=== PATIENT | female | born 1980 | race Caucasian/White ===

== ENCOUNTER 2023-11-02 18:55 | Emergency (ER) | payer SELFPAY ==
[2023-11-02 19:12] VITALS: BP 98/61; PULSE 79; RESP 17; TEMP 36.6; O2SAT 100; BMI 23.0
[2023-11-02 20:16] LABS: Basophils # 0.1 10^3/uL (0.0-0.1); Basophils % 0.9 %; Eosinophils # 0.1 10^3/uL (0.0-0.8); Hematocrit 40.9 % (36-47); Lymphocytes # 1.5 10^3/uL (0.8-4.8); Lymphocytes % 18.6 %; Mean Corpuscular Hemoglobin 29.6 pg (27-33); Mean Corpuscular Volume 92.5 fl (85-98); Mean Platelet Volume 11.1 fL (7.4-10.4); Monocytes # 0.6 10^3/uL (0.2-0.9); Monocytes % 8.1 %; Neutrophils # 5.59 10^3/uL (1.8-7.7); Neutrophils % 71.1 %; Nucleated Red Blood Cells % 0 %; Platelet Count 234 10^3/cmm (157-399); Red Blood Count 4.42 10^6/uL (3.85-5.65); Red Cell Distribution Width 14.6 % (12.1-15.1); White Blood Count 7.86 10^3/uL (3.29-11.43)
[2023-11-02 20:37] LABS: Alanine Aminotransferase 94 U/L (0-33); Albumin Level 4.1 g/dL (3.5-5.2); Alkaline Phosphatase 64 U/L (35-105); Anion Gap 14.1 (5-19); Aspartate Amino Transferase 62 U/L (0-32); Blood Urea Nitrogen 20 mg/dL (6-20); Calcium 8.7 mg/dL (8.5-10.5); Carbon Dioxide 25 mmol/L (22-29); Chloride 104 mmol/L (98-107); Creatinine Clr Calc Pharmacy 126.0267; Globulin 3.4 g/dL (1.3-4.6); Glomerular Filtration Rate 134.7 mL/min (90-130); Glucose 89 mg/dL (65-115); Osmolality Calculated 290 mOsm/kg (285-295); Potassium 4.1 mmol/L (3.5-5.1); Sodium 139 mmol/L (136-145); Total Bilirubin 0.3 mg/dL (0.15-1.2); Total Protein 7.5 g/dL (6.6-8.7)
== END 2023-11-02 20:27 | disposition left against medical advice (07) ==
PROVIDERS: Emergency Medicine; Emergency Provider Family Medicine; Family Provider Family Medicine; PCP Family Medicine
DX: Z53.21 Procedure and treatment not carried out due to patient leaving prior to being seen by health care provider (principal)
CPT/HCPCS: 36415; 80053; 85025

== ENCOUNTER 2023-11-12 15:18 | Emergency (ER) | payer SELFPAY ==
[2023-11-12 15:30] VITALS: BP 104/56; PULSE 105; RESP 16; TEMP 36.7; O2SAT 97; BMI 23.0
--- NOTE | 2023-11-12 16:14 | XR_ITS ---
WS: [id number] Examination: XR lumbar spine 2-3V* [id number] Reason for Exam: back pain Date: 11/12/2023 Comparison: 11/11/2006 Findings: The bone density and the pedicles are intact. There is sacralization of L5 on the right. There is no anterior wedging or compression. There is subtle anterolisthesis at L3-4. There is mild L3-4 disc space narrowing XR/XR lumbar spine 2-3V* [id number] Impression: There is no wedging or compression There is minimal anterolisthesis at L3-4 with the space narrowing.
--- NOTE | 2023-11-12 16:20 | W.ED.BACK ---
HPI - Back Pain/Injury General: Chief Complaint: Back Pain/Injury Stated Complaint: right side lower back pain Time Seen by Provider: 11/12/23 16:11 Source: patient Mode of arrival: ambulatory Limitations: no limitations History of Present Illness: 43-year-old female states she has had left lower back pain Associated symptoms: Deny abdominal pain, chills, dysuria, fever(s), nausea or vomiting Related Data Previous Rx's Medication Instructions Recorded amoxicillin 500 mg tablet 500 mg PO BID dental abscess #30 07/04/22 tabs ibuprofen 600 mg tablet 600 mg PO Q8H PRN pain #20 tabs 07/04/22 methocarbamol 750 mg tablet 750 mg PO Q6H PRN spasms #20 tabs 11/12/23 naproxen 500 mg tablet (Naprosyn) 500 mg PO BID PRN pain #20 tabs 11/12/23 Allergies Allergy/AdvReac Type Severity Reaction Status Date / Time No Known Allergies Allergy Verified 11/02/23 19:14 Review of Systems Const: Denies: fever(s), chills, body aches or change in appetite ENMT: Denies: throat pain or dental pain Card: Denies: chest pain Resp: Denies: dyspnea GI: Denies: abdominal pain, nausea, vomiting or diarrhea : Denies: dysuria Musc: Reports: back pain; Denies: neck pain Skin/Breast: Denies: rash Neuro: Denies: headache(s) PFS ED PFSH: Medical History Dental caries associated with enamel hypomineralization Dental abscess Physical Exam Const: COMMON NORMALS: no acute distress, patient oriented x3 and healthy appearing HENMT: COMMON NORMALS: normocephalic and atraumatic HEAD & SCALP: normocephalic and atraumatic Neck/C-Spine: COMMON NORMALS: full ROM and supple Chest: COMMONS NORMALS: normal inspection of the chest Resp: COMMON NORMALS: normal respiratory effort Cardio: COMMON NORMALS: regular rate RATE: regular rate Back/Pelvis: OTHER: Tenderness over left lower back no midline tenderness no saddle anesthesia Extremity: COMMON NORMALS: normal to inspection and full ROM Neuro: COMMON NORMALS: patient oriented x3, moves all extremities and no focal motor deficits Psych: COMMON NORMALS: mental status grossly normal, Normal thought process present and cooperative THOUGHT PROCESS: Normal thought process present Skin: COMMON NORMALS: no rashes or lesions noted and no wounds GENERAL SKIN EXAM: no rashes or lesions noted Course Vital Signs: Vital signs: Vital Signs Temperature 98.1 F 11/12/23 15:30 Pulse Rate 105 H 11/12/23 15:30 Respiratory Rate 16 11/12/23 15:30 Blood Pressure 104/56 11/12/23 15:30 Pulse Oximetry 97 11/12/23 15:30 Oxygen Delivery Me thod Room Air 11/12/23 15:30 MDM - Back Pain/Injury Medical Decision Making Patient presents with a lumbar strain likely causing her back pain she has no signs of epidural abscess or cord compression she feels improved here we will place her on Naprosyn Robaxin she is follow-up with PCP and return if worsening. Medical Records I reviewed the patient's medical records. Labs I reviewed the patient's lab results. Radiology Impressions Lumbar Spine X-Ray 11/12/23 16:14 Impression: There is no wedging or compression There is minimal anterolisthesis at L3-4 with the space narrowing. Laboratory Results Urine Color Moffat (Yellow) A 11/12/23 16:15 Urine Appearance Clear (CLEAR) 11/12/23 16:15 Urine pH 6.0 (5-7) 11/12/23 16:15 Ur Specific [place] 1.030 (1.005-1.030) 11/12/23 16:15 Urine Protein Trace (Negative) A 11/12/23 16:15 Urine Glucose (UA) Negative (Normal) 11/12/23 16:15 Urine Ketones 1+ (Negative) H 11/12/23 16:15 Urine Blood Negative (Negative) 11/12/23 16:15 Urine Nitrate Negative (Negative) 11/12/23 16:15 Urine Bilirubin Negative (Negative) 11/12/23 16:15 Urine Urobilinogen 1.0 mg/dL (Negative) 11/12/23 16:15 Ur Leukocyte Esterase Trace (Negative) A 11/12/23 16:15 Urine RBC 0-4 /hpf (0-2) H 11/12/23 16:15 Urine WBC 0-4 /hpf (0-5) H 11/12/23 16:15 Ur Squamous Epith Cells 5-10 /hpf (0-5) H 11/12/23 16:15 Calcium Oxalate Crystal 5-10 /hpf H 11/12/23 16:15 Amorphous Sediment Not Reportable 11/12/23 16:15 Urine Bacteria Trace /hpf (NONE) 11/12/23 16:15 Urine Mucus 4+ /hpf 11/12/23 16:15 Ur Oval Fat Bodies 1+ /hpf 11/12/23 16:15 All radiology interpretation(s) finalized by discharge Discharge Plan Discharge Patient Disposition: Home Clinical Impression: Strain of lumbar region Qualifiers: Encounter type: initial encounter Qualified Code(s): S39.012A - Strain of muscle, fascia and tendon of lower back, initial encounter Condition: Stable Prescriptions: New methocarbamol 750 mg tablet 750 mg PO Q6H PRN (Reason: spasms) Qty: 20 0RF Naprosyn 500 mg tablet 500 mg PO BID PRN (Reason: pain) Qty: 20 0RF No Action amoxicillin 500 mg tablet 500 mg PO BID Qty: 30 0RF ibuprofen 600 mg tablet 600 mg PO Q8H PRN (Reason: pain) Qty: 20 0RF Discharge Orders: Discharge ED (Routine); Ordered 11/12/23 Ordered By: Oly Mejia Referrals: Nolan Soto MD [Primary Care Provider] - 4-7 days Discharge Diet: Advance as tolerated Discharge Activity: Resume usual activity Patient Instructions: Back Pain (ED) Stand Alone Forms: Work/School Release Coding Level of Care 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
[2023-11-12 16:35] LABS: Charge for UA Resulting for Rev
[2023-11-12 16:38] LABS: Bilirubin Urine Negative (Negative); Blood Urine Negative (Negative); Glucose Urine UA Negative (Normal); Ketones Urine 1+ (Negative); Leukocyte Esterase Urine Trace (Negative); Nitrate Urine Negative (Negative); Protein Urine Trace (Negative); Urine Appearance Clear (CLEAR)
[2023-11-12] MEDS: methocarbamol 750 mg Tablet 1500 MG PO (16:51)
[2023-11-12] MEDS: ketorolac 60 mg/2 mL INJ IM (16:53)
[2023-11-12] MEDS: dexamethasone 10 mg/mL INJ IM (16:53)
[2023-11-12 17:17] LABS: UA Manual Slide Review YES; UA Slide Review UA Slide Review Perf; Urine Color Orange (Yellow)
[2023-11-12 17:19] LABS: Add Urine Culture? No; Bacteria Urine TRACE /hpf; Mucus Urine 4+ /hpf; Oval Fat Bodies Urine 1+ /hpf; RBC Urine 0-4 /hpf (0-2); WBC Urine 0-4 /hpf (0-5)
[2023-11-12 18:18] VITALS: BP 110/63; PULSE 82; O2SAT 97
== END 2023-11-12 18:19 | disposition home or self-care (01) ==
PROVIDERS: Emergency Provider Emergency Medicine; Family Provider Family Medicine; PCP Family Medicine
DX: S39.012A Strain of muscle, fascia and tendon of lower back, initial encounter (principal); X58.XXXA Exposure to other specified factors, initial encounter
CPT/HCPCS: 72100; 81003; 81015; 96372; 99284; J1100; J1885

== ENCOUNTER 2023-12-16 03:53 | Emergency (ER) | payer SELFPAY ==
[2023-12-16 03:59] VITALS: BP 119/83; PULSE 83; RESP 18; TEMP 36.7; O2SAT 99; BMI 23.0
[2023-12-16 04:06] VITALS: BP 119/83; PULSE 73; O2SAT 100
--- NOTE | 2023-12-16 04:22 | W.ED.BACK ---
HPI - Back Pain/Injury General: Chief Complaint: Back Pain/Injury Stated Complaint: Lower back pain Time Seen by Provider: 12/16/23 04:18 History of Present Illness: Patient presents to the ER for evaluations of low back pain and back spasms. She states she was seen here few weeks ago for the same thing and was given a shot and a muscle relaxer and it seemed to help but the pain will wait. Patient was instructed to follow-up with her family practice physician for further evaluation and treatment but has not seen them. Patient has had no new acute trauma. Patient does rate the pain a 6 out of 10. Related Data Previous Rx's Medication Instructions Recorded amoxicillin 500 mg tablet 500 mg PO BID dental abscess #30 07/04/22 tabs ibuprofen 600 mg tablet 600 mg PO Q8H PRN pain #20 tabs 07/04/22 meloxicam 7.5 mg tablet 7.5 mg PO .Twice daily #14 tabs 12/16/23 orphenadrine citrate 100 mg 100 mg PO Q12H #20 tabs 12/16/23 tablet,extended release Allergies Allergy/AdvReac Type Severity Reaction Status Date / Time No Known Allergies Allergy Verified 11/02/23 19:14 Review of Systems General: Reports: 10 or more systems reviewed and unremarkable except in HPI and below PFSH ED PFSH: Medical History Dental caries associated with enamel hypomineralization Dental abscess Physical Exam Const: COMMON NORMALS: no acute distress, average body habitus, patient oriented x3, no limitations, healthy appearing, alert and well nourished Neck/C-Spine: COMMON NORMALS: no JVD Chest: COMMONS NORMALS: normal inspection of the chest and normal palpation of entire chest wall Resp: COMMON NORMALS: normal respiratory effort, No retractions, No use of accessory muscles and clear to auscultation bilaterally AUSCULTATION: clear to auscultation bilaterally Cardio: COMMON NORMALS: no JVD, regular rate, regular rhythm, S1 normal heart sound present, S2 normal heart sound present, No gallops present (Cardio), No clicks present (Cardio), No murmurs present (Cardio) and No rub (Cardio) RATE: regular rate RHYTHM: regular rhythm HEART SOUNDS: S1 normal heart sound present and S2 normal heart sound present GI: COMMON NORMALS: Normal to inspection, nondistended, normoactive bowel sounds present, Soft to palpation, non-tender, No hepatosplenomegaly present and no masses PALPATION: Yes Soft to palpation and Yes No hepatosplenomegaly present Back/Pelvis: OTHER: Tenderness to palpation over left paraspinal musculature, no obvious step-off or deformity or tenderness palpation over superior spinous processes Neuro: COMMON NORMALS: patient oriented x3 SENSORIUM/ORIENTATION: Yes alert Course Vital Signs: Vital signs: Vital Signs Temperature 98.1 F 12/16/23 03:59 Pulse Rate 83 12/16/23 03:59 Respiratory Rate 18 12/16/23 03:59 Blood Pressure 119/83 12/16/23 03:59 Pulse Oximetry 99 12/16/23 03:59 Oxygen Delivery Me thod Room Air 12/16/23 03:59 MDM - Back Pain/Injury Medical Decision Making Lab work imaging and note from 11/02/2023 reviewed, Differential Diagnosis Likely lumbar radiculopathy and strain of lumbar region Medical Records I reviewed the patient's medical records. Labs I reviewed the patient's lab results. No radiology studies performed this visit Discharge Plan Discharge Patient Disposition: Home Clinical Impression: Strain of lumbar region Qualifiers: Encounter type: initial encounter Qualified Code(s): S39.012A - Strain of muscle, fascia and tendon of lower back, initial encounter Condition: Stable Prescriptions: New meloxicam 7.5 mg tablet 7.5 mg PO .Twice daily Qty: 14 0RF orphenadrine citrate 100 mg tablet extended release 100 mg PO Q12H Qty: 20 0RF Discontinued methocarbamol 750 mg tablet 750 mg PO Q6H PRN (Reason: spasms) Qty: 20 0RF naproxen [Naprosyn] 500 mg tablet 500 mg PO BID PRN (Reason: pain) Qty: 20 0RF No Action amoxicillin 500 mg tablet 500 mg PO BID Qty: 30 0RF ibuprofen 600 mg tablet 600 mg PO Q8H PRN (Reason: pain) Qty: 20 0RF Discharge Orders: Discharge ED (Routine); Ordered 12/16/23 Ordered By: Stanislaw Zamudio Referrals: Nolan Soto MD [Primary Care Provider] - 1 week Patient Instructions: Low Back Strain (ED) Activity Restrictions/Additional Instructions: Thank you for choosing [facility] for your healthcare needs today. Please realize that you were seen in the emergency department and that we are providing you with an emergency medical screening exam and this may not be a complete and all exclusive of all testing and/or medical workup we may need to determine your element or severity of your illness. It is very important that you follow-up as instructed with your primary care provider or specialist for the additional evaluation and to discuss your medical treatment plan. You may return to the emergency department should you have concerns or if your condition changes or worsens in any way. 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
[2023-12-16] MEDS: orphenadrine 30 mg/mL Inj 2 mL 60 MG IM (04:27)
[2023-12-16] MEDS: ketorolac 60 mg/2 mL INJ IM (04:30)
[2023-12-16 05:55] VITALS: BP 102/55; PULSE 78; O2SAT 98
== END 2023-12-16 05:57 | disposition home or self-care (01) ==
PROVIDERS: Emergency Provider Emergency Medicine; Family Provider Family Medicine; PCP Family Medicine
DX: S39.012A Strain of muscle, fascia and tendon of lower back, initial encounter (principal); X58.XXXA Exposure to other specified factors, initial encounter
CPT/HCPCS: 96372; 99284; J1885; J2360

== ENCOUNTER 2023-12-21 01:28 | Emergency (ER) | payer SELFPAY ==
[2023-12-21 01:50] VITALS: BP 106/63; PULSE 130; RESP 18; TEMP 36.6; O2SAT 98; BMI 23.0
--- NOTE | 2023-12-21 04:05 | PC.NURSE ---
During assessment of pt, offered to get pt in the bed for comfort. Pt stated that secondary to her back pain, she couldn't get into the bed. Pt informed of delays, but assured that a physician would be in to see her and we would see what we could do to help her. Pt verbalizes understanding of plan at this time.
--- NOTE | 2023-12-21 05:10 | PC.NURSE ---
pt requested to speak to a nurse. RN went to room to see what pt needed. Pt stated she wanted to see the DR right now. RN explained that the DR was seeing a different pt at the time. Pt said she is tired of sitting in her room wearing a [employer] shirt when she does not work at [employer]. Pt then stated she does not want to deal with veterans. RN asked her if she could explain why she was here and maybe RN could help. Pt asked RN what her name was. RN replied and pt stated that was her grandmothers name. Pt the stated she thinks Stanislaw sent RN in there and she wanted a new nurse now. RN explained she did not know a stanislaw and she stated to get out.
--- NOTE | 2023-12-21 05:33 | PC.NURSE ---
This RN was notified by another RN that they were called to pt room. After getting irritated, the patient did not want to speak with that RN any longer. Requested a new RN to come to room. This RN went to pt room. Pt was sitting in wc and states oh thank God . This RN asked the pt what I could do for her. Pt expresses frustration with being here for so long. This RN attempted to explain to the patient that the doctor is backed up, but would be in to see her as soon as possible. Attempted to explain that another MD would be coming in shortly, but pt continued to interrupt stating things like do you not get it? and I guess I will just sit here in labor. followed by rapid speech. Pt stated she wanted to sleep. RN offered to get pt in bed, pt continues with rapid speech, but makes no sense. Offered pt a drink or a meal, which pt declined. Pt requested a phone. RN told pt that she would attempt to get phone for pt, but the pt then stated she has her own phone because yeah,I tend to have my own phone. After multiple attempts to communicate with the pt, it was evident that the pt was getting more escalated. This RN reiterated that an MD would be coming to see her shortly and that this RN was going to step out of the room. Pt agreeable to this at this time.
--- NOTE | 2023-12-21 06:26 | ED.C_ITS ---
HPI - Psych General: Chief Complaint: Psychiatric Symptoms Stated Complaint: Stresses Out Time Seen by Provider: 12/21/23 06:08 History of Present Illness: Patient presents to the ER with complaints of rambling speech and racing thoughts. Patient cannot stay on topic. Patient approximate pain secondary when she was 17, she could be constipated, knee pain, weird rash, patient denies suicidal homicidal ideation. Patient does say she wants the same medicine she had last time which was meloxicam and methocarbamol for her back. The next phrase will be her back feels better. Patient cannot stay on topic. Patient says she has lots of anxiety 1 to be admitted to the stress unit. Patient was told he is resting his bed and does not have any beds right now and she would not fit the criteria because she is not suicidal or homicidal at this moment. Related Data Previous Rx's Medication Instructions Recorded amoxicillin 500 mg tablet 500 mg PO BID dental abscess #30 07/04/22 tabs ibuprofen 600 mg tablet 600 mg PO Q8H PRN pain #20 tabs 07/04/22 meloxicam 7.5 mg tablet 7.5 mg PO .Twice daily #14 tabs 12/16/23 orphenadrine citrate 100 mg 100 mg PO Q12H #20 tabs 12/16/23 tablet,extended release Allergies Allergy/AdvReac Type Severity Reaction Status Date / Time No Known Allergies Allergy Verified 11/02/23 19:14 Review of Systems General: Reports: 10 or more systems reviewed and unremarkable except in HPI and below PFSH ED PFSH: Medical History Dental caries associated with enamel hypomineralization Dental abscess Physical Exam Const: COMMON NORMALS: no acute distress, average body habitus, patient oriented x3, no limitations, healthy appearing, alert and well nourished HENMT: COMMON NORMALS: normocephalic, atraumatic, hearing grossly normal bilaterally, external ears normal, Normal external nose present and moist oral mucous membranes HEAD & SCALP: normocephalic and atraumatic NOSE: Normal external nose present EXTERNAL EAR: Yes external ears normal Neck/C-Spine: COMMON NORMALS: full ROM, no lymphadenopathy, supple, no meningeal signs, no JVD and Thyroid normal THYROID: Thyroid normal Chest: COMMONS NORMALS: normal inspection of the chest and normal palpation of entire chest wall Resp: COMMON NORMALS: normal respiratory effort, No retractions, No use of accessory muscles and clear to auscultation bilaterally AUSCULTATION: clear to auscultation bilaterally Cardio: COMMON NORMALS: no JVD, regular rate, regular rhythm, S1 normal heart sound present, S2 normal heart sound present, No gallops present (Cardio), No clicks present (Cardio), No murmurs present (Cardio) and No rub (Cardio) RATE: regular rate RHYTHM: regular rhythm HEART SOUNDS: S1 normal heart sound present and S2 normal heart sound present GI: COMMON NORMALS: Normal to inspection, nondistended, normoactive bowel sounds present, Soft to palpation, non-tender, No hepatosplenomegaly present and no masses PALPATION: Yes Soft to palpation and Yes No hepatosplenomegaly present Neuro: COMMON NORMALS: patient oriented x3 SENSORIUM/ORIENTATION: Yes alert MENINGEAL SIGNS: Yes no meningeal signs Course Vital Signs: Vital signs: Vital Signs Temperature 98 F 12/21/23 01:50 Pulse Rate 130 H 12/21/23 01:50 Respiratory Rate 18 12/21/23 01:50 Blood Pressure 106/63 12/21/23 01:50 Pulse Oximetry 98 12/21/23 01:50 MDM - Psych Medical Decision Making Patient denies suicidal homicidal ideation. Patient appears to be manic and also complains of knee pain. Patient be given pain medicine here and discharged. Patient will be instructed to follow-up with the crisis center as.Needed when it opens up. Medical Records I reviewed the patient's medical records. Lab Data I reviewed the patient's lab results. No radiology studies performed this visit Discharge Plan Discharge Patient Disposition: Home Clinical Impression: Acute knee pain, Bipolar disorder Condition: Stable Prescriptions: No Action amoxicillin 500 mg tablet 500 mg PO BID Qty: 30 0RF ibuprofen 600 mg tablet 600 mg PO Q8H PRN (Reason: pain) Qty: 20 0RF meloxicam 7.5 mg tablet 7.5 mg PO .Twice daily Qty: 14 0RF orphenadrine citrate 100 mg tablet extended release 100 mg PO Q12H Qty: 20 0RF Discharge Orders: Discharge ED (Routine); Ordered 12/21/23 Ordered By: Stanislaw Zamudio Referrals: Nolan Soto MD [Primary Care Provider] - 1 week Patient Instructions: Knee Pain (ED) Activity Restrictions/Additional Instructions: Please fill your prescriptions at the pharmacy from your last visit as this will help your knee pain. Please follow-up at the crisis center when I open up at 8 AM this morning if you need additional help with your psychiatric issues. 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
--- NOTE | 2023-12-21 06:49 | PC.NURSE ---
Pt does not want vitals taken at this time. Pt in NAD.
[2023-12-21] MEDS: orphenadrine 30 mg/mL Inj 2 mL 60 MG IM (07:33)
[2023-12-21] MEDS: ketorolac 60 mg/2 mL INJ IM (07:33)
[2023-12-21 07:48] VITALS: BP 110/72; PULSE 92; O2SAT 98
== END 2023-12-21 07:50 | disposition home or self-care (01) ==
PROVIDERS: Emergency Provider Emergency Medicine; PCP Family Medicine
DX: F31.9 Bipolar disorder, unspecified (principal); M25.569 Pain in unspecified knee
CPT/HCPCS: 96372; 99284; J1885; J2360

== ENCOUNTER 2023-12-25 23:28 | Inpatient (IN) | payer SELFPAY ==
[2023-12-25 23:53] VITALS: BP 121/59; PULSE 99; RESP 18; TEMP 36.6; O2SAT 99
--- NOTE | 2023-12-26 00:04 | W.ED.BACK ---
HPI - Back Pain/Injury General: Chief Complaint: Back Pain/Injury Stated Complaint: Back Pain Time Seen by Provider: 12/25/23 23:54 History of Present Illness: 43-year-old female comes in today for complaints of low back pain with radiation down the left hip. Patient has had pain like this for several months now. Patient was first seen in September for this episode. Patient reports some improvement but does have recurrence of pain. Patient today noted that she had increased pain and discomfort and had had several appointments and had done a lot of walking. Patient reports that tonight the pain was exacerbated and she had gone for a walk but felt worse so she came to the ER. Patient ambulates without difficulty. Patient reports that the pain in numbness seems to run down the leg. Review of the record noted an x-ray done back in September showed some intervertebral disc disease around L3-L4. Patient denies any loss of bowel or bladder control. Patient denies any recent falls or injuries. Related Data Previous Rx's Medication Instructions Recorded amoxicillin 500 mg tablet 500 mg PO BID dental abscess #30 07/04/22 tabs celecoxib 200 mg capsule 200 mg PO BID #20 caps 12/26/23 cyclobenzaprine 5 mg tablet 5 mg PO BID #20 tabs 12/26/23 Allergies Allergy/AdvReac Type Severity Reaction Status Date / Time No Known Allergies Allergy Verified 11/02/23 19:14 Review of Systems General: Reports: 10 or more systems reviewed and unremarkable except in HPI and below Musc: Reports: back pain [facility] ED PFSH: Medical History Dental caries associated with enamel hypomineralization Dental abscess Physical Exam Const: COMMON NORMALS: alert HENMT: COMMON NORMALS: normocephalic HEAD & SCALP: normocephalic Neck/C-Spine: COMMON NORMALS: full ROM Resp: COMMON NORMALS: normal respiratory effort Cardio: COMMON NORMALS: regular rate RATE: regular rate Back/Pelvis: LUMBAR SPINE/LOWER BACK: Yes paraspinal muscle tenderness Lumbar paraspinal muscle tenderness: left Extremity: COMMON NORMALS: full ROM Neuro: SENSORIUM/ORIENTATION: Yes alert Skin: COMMON NORMALS: turgor normal GENERAL SKIN EXAM: turgor normal Course Vital Signs: Vital signs: Vital Signs Temperature 98 F 12/25/23 23:53 Pulse Rate 99 12/25/23 23:53 Respiratory Rate 18 12/25/23 23:53 Blood Pressure 121/59 12/25/23 23:53 Pulse Oximetry 99 12/25/23 23:53 MDM - Back Pain/Injury Medical Decision Making 43-year-old female comes in today for complaints of low back pain with radiation down the left leg. Patient also reports some tingling sensation in the bottoms of her feet. Patient ambulates without difficulty. Patient does have some paraspinous muscle tenderness. Distal pulses and sensation are intact. No swelling is noted. Patient denied any falls. Differential diagnosis intervertebral disc disease, facet arthritis, lumbar radiculopathy. Patient was given a dose of Toradol and orphenadrine along with dexamethasone. Patient be continued on celecoxib and cyclobenzaprine. Patient was recommended to follow-up with primary care for further evaluation and treatment. Patient probably needs to have referral to orthopedic spine for further evaluation but no acute signs of cauda equina syndrome or discitis with abscess is noted. Patient was discharged home in stable condition. No radiology studies performed this visit Discharge Plan Discharge Patient Disposition: Home Clinical Impression: Lumbar radiculopathy Condition: Stable Prescriptions: New celecoxib 200 mg capsule 200 mg PO BID Qty: 20 0RF cyclobenzaprine 5 mg tablet 5 mg PO BID Qty: 20 0RF Discontinued ibuprofen 600 mg tablet 600 mg PO Q8H PRN (Reason: pain) Qty: 20 0RF meloxicam 7.5 mg tablet 7.5 mg PO .Twice daily Qty: 14 0RF orphenadrine citrate 100 mg tablet extended release 100 mg PO Q12H Qty: 20 0RF No Action amoxicillin 500 mg tablet 500 mg PO BID Qty: 30 0RF Discharge Orders: Discharge ED (Routine); Ordered 12/26/23 Ordered By: Petey Wells Referrals: Nolan Soto MD [Primary Care Provider] - Discharge Diet: Usual diet Discharge Activity: Increase activity as tolerated Patient Instructions: Sciatica (ED) Activity Restrictions/Additional Instructions: Take medication as directed. Drink plenty of water and fluids with medication. Follow-up with primary care in 3 to 5 days for recheck. Return to ER for new concerns such as fever greater than 101, loss of bowel or bladder control, or new concerns. 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
[2023-12-26] MEDS: ketorolac 30 mg/mL INJ IM (00:05)
[2023-12-26] MEDS: dexamethasone 10 mg/mL INJ IM (00:08)
[2023-12-26] MEDS: orphenadrine 30 mg/mL Inj 2 mL 60 MG IM (00:11)
--- NOTE | 2023-12-26 00:25 | PC.NURSE ---
1 tab of flexeril sent home with patient per CARLY Wells.
--- NOTE | 2023-12-26 00:41 | W.ED.BACK ---
HPI - Back Pain/Injury General: Chief Complaint: Back Pain/Injury Stated Complaint: Back Pain Time Seen by Provider: 12/25/23 23:54 History of Present Illness: Patient originally presented for chest pain. Upon discharge she told nursing to let me place to go if she is homelessness, shelter. Ultimately she says that if we send her home and do not admit her to the stress unit she will kill herself. Related Data Previous Rx's Medication Instructions Recorded amoxicillin 500 mg tablet 500 mg PO BID dental abscess #30 07/04/22 tabs celecoxib 200 mg capsule 200 mg PO BID #20 caps 12/26/23 cyclobenzaprine 5 mg tablet 5 mg PO BID #20 tabs 12/26/23 Allergies Allergy/AdvReac Type Severity Reaction Status Date / Time No Known Allergies Allergy Verified 11/02/23 19:14 Review of Systems Narrative: Constitutional symptoms: Negative except as documented in HPI. Skin symptoms: Negative except as documented in HPI. Eye symptoms: Negative except as documented in HPI. ENMT symptoms: Negative except as documented in HPI. Respiratory symptoms: Negative except as documented in HPI. Cardiovascular symptoms: Negative except as documented in HPI. Gastrointestinal symptoms: Negative except as documented in HPI. Genitourinary symptoms: Negative except as documented in HPI. Musculoskeletal symptoms: Negative except as documented in HPI. Neurologic symptoms: Negative except as documented in HPI. Psychiatric symptoms: Negative except as documented in HPI. Endocrine symptoms: Negative except as documented in HPI. ON LICENSE OF [facility] ED PFSH: Medical History Dental caries associated with enamel hypomineralization Dental abscess Physical Exam Narrative: EXAM NARRATIVE: General: Alert, no acute distress. Skin: Warm, dry. Head: Normocephalic, atraumatic. Neck: Supple, trachea midline. Eye: Extraocular movements are intact. Ears, nose, mouth and throat: mucosa moist. Cardiovascular: Regular, Normal peripheral perfusion. Respiratory: Lungs are clear to auscultation, respirations are non-labored, breath sounds are equal, Symmetrical chest wall expansion. Gastrointestinal: Soft, Nontender, Non distended Musculoskeletal: Normal ROM, no deformity. Neurological: Alert and oriented, No focal neurological deficit observed. Psychiatric: Cooperative, patient states she will kill herself if she is discharged Course Vital Signs: Vital signs: Vital Signs Temperature 98 F 12/25/23 23:53 Pulse Rate 99 12/25/23 23:53 Respiratory Rate 18 12/25/23 23:53 Blood Pressure 121/59 12/25/23 23:53 Pulse Oximetry 99 12/25/23 23:53 MDM - Back Pain/Injury Medical Decision Making Differential diagnosis: Patient with reported depression and suicidal ideation. concerns for infection, alcohol intoxication, cardiac issues or other medical problems prior to psychiatric admission. Workup: labwork, ekg ordered to evaluate the pathologies and to clear the patient medically prior to psychiatric admission EKG: Time 0051. Rate 75. Normal sinus rhythm, No ST-T changes, no ectopy, normal MD & QRS intervals, This was reviewed and interpreted by myself the ER physician at 0055 Lab Review: Laboratory results were reviewed and interpreted by myself the emergency room physician. Lab review: - Medically cleared. - EKG shows no ischemic changes. - Blood alcohol level is negative, -Tylenol and salicylate levels are negative. - Drug screen is positive for amphetamines and marijuana - No signs of infection, urinalysis clear and white count is not elevated - No anemia. - BUN and creatinine are within normal limits. Consultation: I spoke with Dr. Hobson who agrees to admission. Assessment and plan: Suicidal ideation Homelessness. -Admission to neuropsychiatric unit for continued evaluation and treatment. - All lab work was reviewed and interpreted personally by myself, the ER physician - Evaluation and treatment of this problem were appropriate in the emergency setting Labs 12/26/23 00:49 12/26/23 00:49 Laboratory Results WBC 4.62 10^3/uL (3.29-11.43) 12/26/23 00:49 RBC 4.73 10^6/uL (3.85-5.65) 12/26/23 00:49 Hgb 13.50 g/dL (11.27-16.99) 12/26/23 00:49 Hct 42.9 % (36-47) 12/26/23 00:49 MCV 90.7 fl (85-98) 12/26/23 00:49 MCH 28.5 pg (27-33) 12/26/23 00:49 MCHC 31.5 g/dL (30-55) 12/26/23 00:49 RDW 14.4 % (12.1-15.1) 12/26/23 00:49 Plt Count 215 10^3/cmm (157-399) 12/26/23 00:49 MPV 11.4 fL (7.4-10.4) H 12/26/23 00:49 Neut % (Auto) 50.4 % 12/26/23 00:49 Lymph % (Auto) 31.0 % 12/26/23 00:49 Mcnairy % (Auto) 12.3 % 12/26/23 00:49 Eos % (Auto) 5.2 % 12/26/23 00:49 Baso % (Auto) 0.9 % 12/26/23 00:49 Neut # (Auto) 2.33 10^3/uL (1.8-7.7) 12/26/23 00:49 Lymph # (Auto) 1.4 10^3/uL (0.8-4.8) 12/26/23 00:49 Mcnairy # (Auto) 0.6 10^3/uL (0.2-0.9) 12/26/23 00:49 Eos # (Auto) 0.2 10^3/uL (0.0-0.8) 12/26/23 00:49 Baso # (Auto) 0.0 10^3/uL (0.0-0.1) 12/26/23 00:49 Nucleated RBC % (auto) 0 % 12/26/23 00:49 Nucleated RBCs # 0.0 /100WBC 12/26/23 00:49 Sodium 138 mmol/L (136-145) 12/26/23 00:49 Potassium 3.8 mmol/L (3.5-5.1) 12/26/23 00:49 Chloride 103 mmol/L (98-107) 12/26/23 00:49 Carbon Dioxide 27 mmol/L (22-29) 12/26/23 00:49 Anion Gap 11.8 (5-19) 12/26/23 00:49 BUN 14 mg/dL (6-20) 12/26/23 00:49 Creatinine 0.5 mg/dL (0.5-0.9) 12/26/23 00:49 GFR Calculation 134.7 mL/min (90-130) H 12/26/23 00:49 Glucose 93 mg/dL (65-115) 12/26/23 00:49 Calculated Osmolality 286 mOsm/kg (285-295) 12/26/23 00:49 Calcium 8.4 mg/dL (8.5-10.5) L 12/26/23 00:49 Total Bilirubin 0.4 mg/dL (0.15-1.2) 10 00:49 AST 46 U/L (0-32) H 12/26/23 00:49 ALT 39 U/L (0-33) H 12/26/23 00:49 Alkaline Phosphatase 59 U/L (35-105) 12/26/23 00:49 Total Protein 7.0 g/dL (6.6-8.7) 12/26/23 00:49 Albumin 3.8 g/dL (3.5-5.2) 12/26/23 00:49 Globulin 3.2 g/dL (1.3-4.6) 12/26/23 00:49 TSH 0.78 uIU/mL (0.27-4.20) 12/26/23 00:49 HCG, Qual Negative (Negative) 12/26/23 00:49 Salicylates < 0.3 mg/dL (3-10) L 12/26/23 00:49 Acetaminophen < 5.0 ug/mL (10-30) L 12/26/23 00:49 Ethyl Alcohol < 10 mg/dL (0-10) 12/26/23 00:49 No radiology studies performed this visit Discharge Plan Discharge Patient Disposition: Admitted As Inpatient Admit Provider: Solitario Hobson Clinical Impression: Lumbar radiculopathy, Suicidal ideation, Homeless Condition: Stable Discharge Diet: Usual diet Discharge Activity: Increase activity as tolerated Coding Level of Care Code ED 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
--- NOTE | 2023-12-26 00:41 | PC.NURSE ---
Pt was up for discharge when she made comments about being at her wits end and needing to go to the stress unit. This nurse asked if she has thoughts of SI/HI and she states she has thoughts of SI sometimes but does not believe in it. notified.
--- NOTE | 2023-12-26 00:51 | ECG_ITS ---
[facility] Test Date: 2023-12-26 Pat Name: Bree Winston Department: Room: Gender: Female Cna Instructor: : 1980 Requested By: Marilyn Dawkins Order Number: [id number] Jacob MD: ANNA ALEXANDER Measurements Intervals [place] Rate: 75 P: 84 OK: 162 QRS: 82 QRSD: 86 T: 57 QT: 370 QTc: 415 Interpretive Statements SINUS RHYTHM RIGHT ATRIAL ENLARGEMENT [0.3mV P-WAVE] POSSIBLE LEFT ATRIAL ENLARGEMENT [-0.1mV P-WAVE IN V1/V2] Compared to ECG 02/22/2017 20:23:20 Sinus tachycardia no longer present T-wave abnormality no longer present Electronically Signed On 12-27-2023 18:11:00 CDT by ANNA ALEXANDER [email or web address]
[2023-12-26 01:00] LABS: Basophils % 0.9 %; Eosinophils # 0.2 10^3/uL (0.0-0.8); Eosinophils % 5.2 %; Hematocrit 42.9 % (36-47); Lymphocytes # 1.4 10^3/uL (0.8-4.8); Mean Corpuscular HGB Conc 31.5 g/dL (30-55); Mean Corpuscular Hemoglobin 28.5 pg (27-33); Mean Corpuscular Volume 90.7 fl (85-98); Mean Platelet Volume 11.4 fL (7.4-10.4); Monocytes # 0.6 10^3/uL (0.2-0.9); Monocytes % 12.3 %; Neutrophils # 2.33 10^3/uL (1.8-7.7); Neutrophils % 50.4 %; Nucleated Red Blood Cells % 0 %; Platelet Count 215 10^3/cmm (157-399); Red Blood Count 4.73 10^6/uL (3.85-5.65); Red Cell Distribution Width 14.4 % (12.1-15.1); White Blood Count 4.62 10^3/uL (3.29-11.43)
[2023-12-26 01:20] LABS: Bilirubin Urine Negative (Negative); Blood Urine Negative (Negative); Glucose Urine UA Negative (Normal); Ketones Urine 1+ (Negative); Leukocyte Esterase Urine Trace (Negative); Nitrate Urine Negative (Negative); Protein Urine Negative (Negative); Specific Gravity, Urine 1.024 (1.005-1.030); Urine Appearance Clear (CLEAR); Urine Color Yellow (Yellow); pH Urine 5.5 (5-7)
[2023-12-26 01:23] LABS: HCG, Serum Qual Negative (Negative)
--- NOTE | 2023-12-26 01:24 | PC.NURSE ---
96 Hour Involuntary Hold Patient Rights have been read to the patient and a copy of the same has been given to her. Bill Clerk Alex was present at bedside at the time of presentation of Rights.
[2023-12-26 01:25] LABS: Bacteria Urine None Seen /hpf; Hyaline Casts Urine 0-4 /lpf; RBC Urine 0-2 /hpf (0-2); WBC Urine 0-5 /hpf (0-5)
[2023-12-26 01:27] LABS: Amphetamines Screen Urine Positive (Negative); Barbiturates Screen Urine Negative (Negative); Benzodiazepines Screen Urine Negative (Negative); Cocaine Screen Urine Negative (Negative); Opiate Screen Urine Negative (Negative); PCP Screen Urine Negative (Negative); THC Screen Urine Positive (Negative)
[2023-12-26 01:40] LABS: Alanine Aminotransferase 39 U/L (0-33); Albumin Level 3.8 g/dL (3.5-5.2); Alkaline Phosphatase 59 U/L (35-105); Aspartate Amino Transferase 46 U/L (0-32); Blood Urea Nitrogen 14 mg/dL (6-20); Calcium 8.4 mg/dL (8.5-10.5); Carbon Dioxide 27 mmol/L (22-29); Chloride 103 mmol/L (98-107); Globulin 3.2 g/dL (1.3-4.6); Glomerular Filtration Rate 134.7 mL/min (90-130); Glucose 93 mg/dL (65-115); Osmolality Calculated 286 mOsm/kg (285-295); Sodium 138 mmol/L (136-145); Thyroid Stimulating Hormone 0.78 uIU/mL (0.27-4.20); Total Bilirubin 0.4 mg/dL (0.15-1.2)
[2023-12-26 01:45] LABS: Acetaminophen < 5.0 ug/mL (10-30); Alcohol Level < 10 mg/dL (0-10); Anion Gap 11.8 (5-19); Potassium 3.8 mmol/L (3.5-5.1); Salicylate < 0.3 mg/dL (3-10)
[2023-12-26 06:13] VITALS: BP 105/59; PULSE 91; O2SAT 98
[2023-12-26 09:57] VITALS: BP 114/70; PULSE 104; O2SAT 98
[2023-12-26] MEDS: cyclobenzaprine 10 mg Tablet PO (11:13)
[2023-12-26] MEDS: nicotine 2 mg Gum BUCCAL (11:13)
[2023-12-26] MEDS: OLANZapine 5 mg ODT PO (11:16)
--- NOTE | 2023-12-26 11:26 | PC.NURSE ---
zyprexa 5mg ODT to agitation. Patient states that the noises coming from her roommate and driving me crazy.
[2023-12-26 14:00] VITALS: BP 120/82; PULSE 82; RESP 18; TEMP 36.8; O2SAT 97
--- NOTE | 2023-12-26 14:10 | PC.PT ---
Addendum entered by Juan Stone 12/27/23 11:51: Attempted evaluation 12/26, and patient reported her symptoms have improved. She is using lidocaine patch. She says she does not see need for therapy at this time. Original Note: attempted evaluation for PT due to c/o back pain. In questioning her about her symptoms and what she has done for stretches (which she reported that she has done in the past), she was getting more agitated at my questions. I wanted to do a physical exam of muscle flexibility and strength as these are often the primary reasons for buttocks and hip pain, but again was irritated with me and then stated that she did not want physical therapy at this time. I spoke with the nurse, I will leave the order open and attempts will be made over the weekend
[2023-12-26] MEDS: acetaminophen 325 mg Tablet 650 MG PO (16:28)
--- NOTE | 2023-12-26 16:37 | PC.NURSE ---
Patient upset that we don't have a pen for her to fill out paperwork. Patient's attitude is negative and irritable.
[2023-12-26] MEDS: meloxicam 7.5 mg tablet PO (18:28)
[2023-12-26] MEDS: baclofen 10 mg Tablet 5 MG PO (18:28)
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
[2023-12-26 19:29] VITALS: BP 120/77; PULSE 99; RESP 18; TEMP 36.7; O2SAT 97
[2023-12-27] MEDS: acetaminophen 325 mg Tablet 650 MG PO ×2 (04:50→17:03)
[2023-12-27] MEDS: baclofen 10 mg Tablet 5 MG PO ×2 (04:50→18:36)
[2023-12-27 06:00] VITALS: BP 136/85; PULSE 88; RESP 18; TEMP 36.3; O2SAT 99
[2023-12-27] MEDS: meloxicam 7.5 mg tablet PO (08:13)
[2023-12-27] MEDS: nicotine 2 mg Gum BUCCAL (10:14)
[2023-12-27] MEDS: lidocaine 5% Patch 1 PATCH TOPICAL ×2 (10:52→21:41)
[2023-12-27 13:52] VITALS: BP 110/66; PULSE 88; RESP 17; TEMP 36.4; O2SAT 97
[2023-12-27] MEDS: ondansetron 4 MG Tablet PO (17:59)
[2023-12-27 20:02] VITALS: BP 120/77; PULSE 100; RESP 18; TEMP 36.8; O2SAT 98
[2023-12-28 06:00] VITALS: BP 109/73; PULSE 94; RESP 16; TEMP 36.6; O2SAT 96
[2023-12-28] MEDS: baclofen 10 mg Tablet 5 MG PO ×2 (07:39→15:35)
[2023-12-28] MEDS: lidocaine 5% Patch 1 PATCH TOPICAL (07:39)
[2023-12-28] MEDS: hyDROXYzine 25 mg Capsule 50 MG PO (07:39)
[2023-12-28] MEDS: nicotine 2 mg Gum BUCCAL (07:39)
--- NOTE | 2023-12-28 07:58 | P.NPUPN_ITS ---
Subjective NPU 2 Subjective: Patient presented today reporting that she is doing okay. She continued to be resistant to any indication that her situation reflected addiction or need for addiction treatment or any other specific mental health problem. She was focused on the possibility that she could get discharged tomorrow and was resistant to talk about different follow-up options. We discussed that Dr. Perry would be here tomorrow and making these discharge assessment. She denied any specific concerns. Mental Status Exam 2 MSE Comments: This is an obese white female in hospital scrubs with adequate grooming and eye contact.? No abnormal movements except for mild psychomotor retardation.? Somewhat cooperative with exam in mild to moderate distress.? Speech was slightly decreased rate and volume.? Mood described as okay and he thinks I need to tell my ride to be here at a certain time tomorrow, affect irritable.? Thought process linear.? Thought content: Patient denied suicidal or homicidal ideation, there were no delusions reported or noted, she denied auditory or visual hallucinations. The patient denies any current suicidal ideation or thoughts of violence towards others. She reports feeling overwhelmed but does not identify as depressed. She denies any hallucinations or paranoid thoughts. She reports no self-injurious behavior or significant compulsive behaviors. Attention and concentration were limited and memory appeared mostly reliable but none were formally tested.? She is alert and oriented x 3.? Insight, judgment and impulse control are limited versus impaired. Vitals/I&O/Wt Last Vital Signs Temp 97.9 F 12/28/23 06:00 Pulse 94 12/28/23 06:00 Resp 16 12/28/23 06:00 BP 109/73 12/28/23 06:00 Pulse Ox 96 12/28/23 06:00 O2 Del Method Room Air 12/27/23 20:02 Weight last 48 hrs Weight 71.781 kg Weight 62.686 kg Data NPU 12/26/23 00:49 12/26/23 00:49 A&P Assessment and plan (1) Bipolar disorder: Qualifiers: Active/Remission status: remission status unspecified Qualified Code(s): F31.9 - Bipolar disorder, unspecified (2) Suicidal ideation: (3) Homeless: (4) Methamphetamine use disorder, moderate, dependence: (5) Cannabis use disorder: Plan This is a 38-year-old white female with a history of mental health and addiction issues as well as active mental health and addiction issues who presents with active addiction issues on a 96-hour hold downplaying the addiction element and not reporting any need for treatment. The patient is currently experiencing substantial psychosocial stressors, including job loss, physical health issues, and housing instability, which are contributing to experiencing emotional distress. She has a history of anxiety but does not currently report symptoms of depression or other mental health disorders. 1.? Continue current medication. Will explore possible medications for mental health issues and possible cravings. 2.? Continue every 15 minute checks for safety. 3.? Encourage individual, group and milieu therapies. 4. Encourage sober living treatment after discharge at the highest level care to which she is willing to commit. 5. Get collateral information consider safety issues against the backdrop of addiction. Involuntary Hold Information 2 96 Hour Hold: 96 Hour Involuntary Admission: Yes 96 Hour Hold Ending Date: 01/01/24 96 Hour Hold Ending Time: 00:51 Other Hold: Hold End Date: 01/01/24 Attestations NPU 2 Medical Necessity Statement*: Inpatient hospitalization is medically necessary and the clinically appropriate intervention at this time. We will monitor medication to make changes as indicated. Likely length of stay 2-5 days. Coding Level of Care Code Acute Code for [facility] Diagnoses Bipolar disorder F31.9 Active/Remission status: remission status unspecified Suicidal ideation R45.851 Homeless Z59.00 Methamphetamine use disorder, moderate, dependence F15.20 Cannabis use disorder F12.90
[2023-12-28] MEDS: meloxicam 7.5 mg tablet PO (09:15)
[2023-12-28 14:00] VITALS: BP 114/80; PULSE 116; RESP 18; TEMP 37.4; O2SAT 97
[2023-12-28] MEDS: ondansetron 4 MG Tablet PO (17:29)
[2023-12-28 19:52] VITALS: BP 114/74; PULSE 93; RESP 18; TEMP 37; O2SAT 97
[2023-12-28] MEDS: trazodone 50 mg Tablet PO (21:46)
[2023-12-29 06:12] VITALS: BP 95/57; PULSE 98; RESP 15; TEMP 36.7; O2SAT 97
[2023-12-29] MEDS: lidocaine 5% Patch 1 PATCH TOPICAL ×2 (08:02→21:31)
[2023-12-29] MEDS: meloxicam 7.5 mg tablet PO (08:02)
--- NOTE | 2023-12-29 09:17 | PC.NURSE ---
REFUSED PT CONSULT
[2023-12-29] MEDS: ondansetron 4 MG Tablet PO (09:23)
--- NOTE | 2023-12-29 09:23 | PC.PT ---
Patient declined PT eval for third day. Patient states that she does not need PT. Nursing staff to stop order.
--- NOTE | 2023-12-29 09:24 | PC.NURSE ---
PRN ZOFRAN 4 MG GIVEN PO PER PT C/O NAUSEA
[2023-12-29] MEDS: nicotine 2 mg Gum BUCCAL (10:00)
[2023-12-29] MEDS: baclofen 10 mg Tablet 5 MG PO ×2 (13:21→21:16)
[2023-12-29 14:00] VITALS: BP 118/63; PULSE 110; RESP 18; TEMP 37.2; O2SAT 97
[2023-12-29] MEDS: hyDROXYzine 25 mg Capsule 50 MG PO (17:09)
--- NOTE | 2023-12-29 18:18 | P.NPUPN_ITS ---
Subjective NPU 2 Subjective: 43-year-old female positive for amphetam dipesh on admission admitted with suicidal ideation currently reporting homelessness. Patient had reported that she was not feeling as overwhelmed. She stated that she had intense fear of being homeless and stated that she had not been using any drugs. She had appeared more irritable on the unit and reported that she simply needed help with managing her living situation. She had denied the use of methamphetamine on interview. She denied any past or present history of psychosis. Mental Status Exam 2 MSE Comments: This is an thin white female in hospital scrubs with adequate grooming and eye contact.? No abnormal movements except for mild psychomotor retardation.? Somewhat cooperative with exam in mild to moderate distress.? Speech was normal in rate and volume.? Mood described as better. Her affect was less irritable today. Thought process linear.? Thought content: Patient denied suicidal or homicidal ideation, there were no delusions reported or noted, she denied auditory or visual hallucinations. The patient denies any current suicidal ideation or thoughts of violence towards others. She denies any hallucinations or paranoid thoughts. She reports no self-injurious behavior or significant compulsive behaviors. Attention and concentration were limited and memory appeared mostly reliable but none were formally tested.? She is alert and oriented x 3.? Insight, judgment and impulse control are limited versus impaired. Vitals/I&O/Wt Last Vital Signs Temp 99 F 12/29/23 14:00 Pulse 110 H 12/29/23 14:00 Resp 18 12/29/23 14:00 BP 118/63 12/29/23 14:00 Pulse Ox 97 12/29/23 14:00 O2 Del Method Room Air 12/29/23 14:00 Weight last 48 hrs Weight 71.781 kg Data NPU 12/26/23 00:49 12/26/23 00:49 A&P Assessment and plan (1) Bipolar disorder: Qualifiers: Active/Remission status: remission status unspecified Qualified Code(s): F31.9 - Bipolar disorder, unspecified (2) Suicidal ideation: (3) Homeless: (4) Methamphetamine use disorder, moderate, dependence: (5) Cannabis use disorder: Plan This is a 38-year-old white female with a history of mental health and addiction issues as well as active mental health and addiction issues who presents with active addiction issues on a 96-hour hold downplaying the addiction element and not reporting any need for treatment. The patient is currently experiencing substantial psychosocial stressors, including job loss, physical health issues, and housing instability, which are contributing to experiencing emotional distress. She has a history of anxiety but does not currently report symptoms of depression or other mental health disorders. 1.? Continue current medication. Will explore possible medications for mental health issues and possible cravings. 2.? Continue every 15 minute checks for safety. 3.? Encourage individual, group and milieu therapies. 4. Encourage sober living treatment after discharge at the highest level care to which she is willing to commit. 5. Get collateral information consider safety issues against the backdrop of addiction. Involuntary Hold Information 2 96 Hour Hold: 96 Hour Involuntary Admission: Yes 96 Hour Hold Ending Date: 01/01/24 96 Hour Hold Ending Time: 00:51 Other Hold: Hold End Date: 01/01/24 Attestations NPU 2 Medical Necessity Statement*: Inpatient hospitalization is medically necessary and the clinically appropriate intervention at this time. We will monitor medication to make changes as indicated. Likely length of stay 2-5 days. Coding Level of Care Code Acute Code for [facility] Fwd Diagnoses Bipolar disorder F31.9 Active/Remission status: remission status unspecified Suicidal ideation R45.851 Homeless Z59.00 Methamphetamine use disorder, moderate, dependence F15.20 Cannabis use disorder F12.90
[2023-12-29 19:36] VITALS: BP 102/75; PULSE 86; RESP 18; TEMP 36.9; O2SAT 96
[2023-12-29] MEDS: acetaminophen 325 mg Tablet 650 MG PO (21:10)
[2023-12-29] MEDS: trazodone 50 mg Tablet PO (21:16)
[2023-12-30 06:00] VITALS: BP 107/66; PULSE 117; RESP 15; TEMP 37; O2SAT 98
[2023-12-30] MEDS: baclofen 10 mg Tablet 5 MG PO (06:56)
[2023-12-30] MEDS: meloxicam 7.5 mg tablet PO (09:34)
[2023-12-30] MEDS: lidocaine 5% Patch 1 PATCH TOPICAL (09:35)
[2023-12-30] MEDS: hyDROXYzine 25 mg Capsule 50 MG PO (09:36)
[2023-12-30] MEDS: nicotine 2 mg Gum BUCCAL (10:42)
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
[2023-12-30 13:15] VITALS: BP 107/66; PULSE 117; RESP 15; TEMP 37; O2SAT 98
== END 2023-12-30 16:19 | disposition home or self-care (01) | DRG 885 ==
LOC: ER 12-26 00:42 → ER IP 12-26 01:08 → NP 12-26 09:37
PROVIDERS: Admitting Provider Psychiatry & Neurology Psychiatry; Emergency Provider Emergency Medicine; PCP Family Medicine; Visit Provider Psychiatry & Neurology Psychiatry
DX: F31.9 Bipolar disorder, unspecified (principal); Z59.01 Sheltered homelessness; R45.851 Suicidal ideations; Z59.812 Housing instability, housed, homelessness in past 12 months; F15.20 Other stimulant dependence, uncomplicated; M54.9 Dorsalgia, unspecified; F17.210 Nicotine dependence, cigarettes, uncomplicated; F41.9 Anxiety disorder, unspecified; F12.90 Cannabis use, unspecified, uncomplicated; E66.9 Obesity, unspecified; Z68.28 Body mass index [BMI] 28.0-28.9, adult; Z90.710 Acquired absence of both cervix and uterus
CPT/HCPCS: 36415; 80053; 80306; 80307; 81001; 84443; 84703; 85025; 93005; 96372; 97150; 97165; 99285; J1100; J1885; J2360; Q0162

== ENCOUNTER 2024-05-10 20:24 | Emergency (ER) | payer MEDICAID, SELFPAY ==
[2024-05-10 21:02] VITALS: BP 104/64; PULSE 90; TEMP 37; O2SAT 95; BMI 23.0
[2024-05-11] VITALS (13 sets, daily range): BP systolic 98–154; BP diastolic 63–100; PULSE 78–115; RESP 16–20; O2SAT 95–100
--- NOTE | 2024-05-11 01:22 | CTR_ITS ---
PROCEDURE INFORMATION: Exam: CT Left Upper Extremity With Contrast, Wrist Exam date and time: 05/11/2024 2:53 AM Age: 43 years old Clinical indication: Pain; Mass or lump and swelling; Draining abscess to volar surface of left wrist with redness extending down to mid forearm. TECHNIQUE: Imaging protocol: Computed tomography of the left upper extremity with contrast. Exam focused on the wrist. Radiation optimization: All CT scans at this facility use at least one of these dose optimization techniques: automated exposure control; mA and/or kV adjustment per patient size (includes targeted exams where dose is matched to clinical indication); or iterative reconstruction. Contrast material: OMNI 350; Contrast volume: 100 ml; Contrast route: INTRAVENOUS (IV); COMPARISON: No relevant prior studies available. RADIATION DOSE METRICS: Total DLP (mGy-cm): 459.43 FINDINGS: Bones/joints: The bones are intact. There is no CT evidence of osteomyelitis. Soft tissues: Diffuse skin thickening and subcutaneous edema on the volar surface of the distal forearm proximal wrist. There is fluid collection abutting skin surface measuring approximately 1.4 x 2.6 x 3.2 cm, likely reflecting an abscess in the appropriate clinical setting. There is associated intermuscular edema in the deep intermuscular spaces and fascia of the volar forearm. Vasculature: Vessels appear patent. CT/CT wrist LT w con [id number] IMPRESSION: 1. Large subcutaneous fluid collection on the volar surface of the distal forearm/proximal wrist likely reflecting abscess. 2. Diffuse subcutaneous edema. Additional intermuscular edema in the deeper fascial layers of the volar compartment of the forearm.
--- NOTE | 2024-05-11 01:24 | ED_ITS ---
HPI - Skin/Abscess/Foreign Bdy 2 General: Chief complaint: Skin/Abscess/Foreign Body Stated complaint: Left Wrist Swollen Time Seen by Provider: 05/11/24 01:12 History of Present Illness: Patient presents to the ER with redness and swelling to the left arm at the wrist area. This going up her forearm. Patient says she may have been bit by a spider but that she picked it with a tattoo needle and only worsened. Patient says it hurts a lot.Patient says been there for several days. Related Data Home Medications ?Medication ?Instructions ?Recorded ?Confirmed No Known Home Medications 05/11/2407/02 Allergies Allergy/AdvReac Type Severity Reaction Status Date / Time No Known Allergies Allergy Verified 05/10/24 21:08 Review of Systems 2 General: Reports: 10 or more systems reviewed and unremarkable except in HPI and below PFSH ED 2 PFSH: Medical History Methamphetamine use disorder, moderate, 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 Dental abscess Physical Exam 2 Const: COMMON NORMALS: no acute distress, average body habitus, patient oriented x3, no limitations, healthy appearing, alert and well nourished Neck/C-Spine: COMMON NORMALS: no JVD Chest: COMMONS NORMALS: normal inspection of the chest and normal palpation of entire chest wall Resp: COMMON NORMALS: normal respiratory effort, No retractions, No use of accessory muscles and clear to auscultation bilaterally AUSCULTATION: clear to auscultation bilaterally Cardio: COMMON NORMALS: no JVD, regular rate, regular rhythm, S1 normal heart sound present, S2 normal heart sound present, No gallops present (Cardio), No clicks present (Cardio), No murmurs present (Cardio) and No rub (Cardio) R ATE: regular rate RHYTHM: regular rhythm HEART SOUNDS: S1 normal heart sound present and S2 normal heart sound present GI: COMMON NORMALS: Normal to inspection, nondistended, normoactive bowel sounds present, Soft to palpation, non-tender, No hepatosplenomegaly present and no masses PALPATION: Yes Soft to palpation and Yes No hepatosplenomegaly present Extremity: NARRATIVE EXTREMITY EXAM: Large red and purple abscess type lesion on the left anterior wrist area with streaking up at least into the elbow. With edema of the forearm. Neuro: COMMON NORMALS: patient oriented x3 SENSORIUM/ORIENTATION: Yes alert Course 2 Vital Signs: Vital signs: Vital Signs Temperature 98.6 F 05/10/24 21:02 Pulse Rate 99 05/11/24 18:37 Respiratory Rate 18 05/11/24 11:23 Blood Pressure 98/63 05/11/24 18:37 Pulse Oximetry 95 05/11/24 18:37 Oxygen Delivery Me thod Room Air 05/11/24 18:37 MDM - Skin/Abscess/Foreign Bdy Medicial Decision Making Lab work was obtained which revealed a white count of 16.3, 31.8, lactic acid 1.3, patient was given 30 mg Toradol IV and Zosyn 3.375 g IV, a contrasted CT scan of the wrist was obtained which showed a large subcutaneous fluid collection of volar surface of the distal forearm proximal wrist likely reflecting an abscess, upon further reassessment of the patient patient was found to be soundly sleeping. Consulted Dr. Salvador who said we should probably call Ortho hand, Dr. Lowery is out of the office we will call Dr. Jones who is on-call for Ortho.Dr. Jones says it sounds deep and he would recommend us going to a hand surgeon. Discussed case with transfer at [facility], Dr. Tam hand surgeon agreed and transfer. Medical Records I reviewed the patient's medical records. Lab Data I reviewed the patient's lab results. 05/11/24 02:25 05/11/24 02:[address] 05/11/24 01:22 IMPRESSION: 1. Large subcutaneous fluid collection on the volar surface of the distal forearm/proximal wrist likely reflecting abscess. 2. Diffuse subcutaneous edema. Additional intermuscular edema in the deeper fascial layers of the volar compartment of the forearm. Laboratory Results WBC 16.31 10^3/uL (3.29-11.43) H 05/11/24 02:25 RBC 4.29 10^6/uL (3.85-5.65) 05/11/24 02:25 Hgb 12.70 g/dL (11.27-16.99) 05/11/24 02:25 Hct 39.7 % (36-47) 05/11/24 02:25 MCV 92.5 fl (85-98) 05/11/24 02:25 MCH 29.6 pg (27-33) 05/11/24 02:25 MCHC 32.0 g/dL (30-55) 05/11/24 02:25 RDW 14.4 % (12.1-15.1) 05/11/24 02:25 Plt Count 230 10^3/cmm (157-399) 05/11/24 02:25 MPV 10.7 fL (7.4-10.4) H 05/11/24 02:25 Neut % (Auto) 79.8 % 05/11/24 02:25 Lymph % (Auto) 11.3 % 05/11/24 02:25 [place] % (Auto) 7.7 % 05/11/24 02:25 Eos % (Auto) 0.6 % 05/11/24 02:25 Baso % (Auto) 0.3 % 05/11/24 02:25 Neut # (Auto) 13.01 10^3/uL (1.8-7.7) H 05/11/24 02:25 Lymph # (Auto) 1.9 10^3/uL (0.8-4.8) 05/11/24 02:25 [place] # (Auto) 1.3 10^3/uL (0.2-0.9) H 05/11/24 02:25 Eos # (Auto) 0.1 10^3/uL (0.0-0.8) 05/11/24 02:25 Baso # (Auto) 0.1 10^3/uL (0.0-0.1) 05/11/24 02:25 Nucleated RBC % (auto) 0 % 05/11/24 02:25 Nucleated RBCs # 0.0 /100WBC 05/11/24 02:25 Sodium 137 mmol/L (136-145) 05/11/24 02:25 Potassium 3.6 mmol/L (3.5-5.1) 05/11/24 02:25 Chloride 100 mmol/L (98-107) 05/11/24 02:25 Carbon Dioxide 28 mmol/L (22-29) 05/11/24 02:25 Anion Gap 12.6 (5-19) 05/11/24 02:25 BUN 12 mg/dL (6-20) 05/11/24 02:25 Creatinine 0.6 mg/dL (0.5-0.9) 05/11/24 02:25 GFR Calculation 109.1 mL/min (90-130) 05/11/24 02:25 Glucose 97 mg/dL (65-115) 05/11/24 02:25 Calculated Osmolality 284 mOsm/kg (285-295) L 05/11/24 02:25 Lactic Acid 1.3 mmol/L (0.5-2.2) 05/11/24 02:25 Calcium 8.8 mg/dL (8.5-10.5) 05/11/24 02:25 Total Bilirubin 0.3 mg/dL (0.15-1.2) 05/11/24 02:25 AST 25 U/L (0-32) 05/11/24 02:25 ALT 25 U/L (0-33) 05/11/24 02:25 Alkaline Phosphatase 74 U/L (35-105) 05/11/24 02:25 C-Reactive Protein 71.8 mg/L (0.0-4.9) H 05/11/24 02:25 Total Protein 6.6 g/dL (6.6-8.7) 05/11/24 02:25 Albumin 3.2 g/dL (3.5-5.2) L 05/11/24 02:25 Globulin 3.4 g/dL (1.3-4.6) 05/11/24 02:25 Procalcitonin 0.12 ng/mL (0-0.5) 05/11/24 02:25 All radiology interpretation(s) finalized by discharge Discharge Plan Discharge Patient Disposition: Xfer Short-Term Hosp Clinical Impression: Abscess of skin of left wrist Condition: Stable Referrals: Nolan Soto MD [Primary Care Provider] - Print Language: Tamazight Coding Level of Care Code ED 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
[2024-05-11] MEDS: ketorolac 30 mg/mL INJ IVP (02:21)
[2024-05-11] MEDS: piperacillin-tazobactam 3.375 GM in sodium chloride 0.9% (plus) 50 ML IV ×2 (02:22→21:27)
[2024-05-11 02:35] LABS: Basophils # 0.1 10^3/uL (0.0-0.1); Basophils % 0.3 %; Eosinophils # 0.1 10^3/uL (0.0-0.8); Eosinophils % 0.6 %; Hematocrit 39.7 % (36-47); Lymphocytes # 1.9 10^3/uL (0.8-4.8); Lymphocytes % 11.3 %; Mean Corpuscular Hemoglobin 29.6 pg (27-33); Mean Corpuscular Volume 92.5 fl (85-98); Mean Platelet Volume 10.7 fL (7.4-10.4); Monocytes # 1.3 10^3/uL (0.2-0.9); Monocytes % 7.7 %; Neutrophils # 13.01 10^3/uL (1.8-7.7); Neutrophils % 79.8 %; Nucleated Red Blood Cells % 0 %; Platelet Count 230 10^3/cmm (157-399); Red Blood Count 4.29 10^6/uL (3.85-5.65); Red Cell Distribution Width 14.4 % (12.1-15.1); White Blood Count 16.31 10^3/uL (3.29-11.43)
[2024-05-11] MEDS: iohexol 350 mg/mL 500 mL Btl (per mL) IV (02:57)
[2024-05-11 02:58] LABS: Alanine Aminotransferase 25 U/L (0-33); Albumin Level 3.2 g/dL (3.5-5.2); Alkaline Phosphatase 74 U/L (35-105); Aspartate Amino Transferase 25 U/L (0-32); Blood Urea Nitrogen 12 mg/dL (6-20); C Reactive Protein 71.8 mg/L (0.0-4.9); Calcium 8.8 mg/dL (8.5-10.5); Carbon Dioxide 28 mmol/L (22-29); Chloride 100 mmol/L (98-107); Creatinine Clr Calc Pharmacy 105.0222; Globulin 3.4 g/dL (1.3-4.6); Glomerular Filtration Rate 109.1 mL/min (90-130); Glucose 97 mg/dL (65-115); Osmolality Calculated 284 mOsm/kg (285-295); Sodium 137 mmol/L (136-145); Total Bilirubin 0.3 mg/dL (0.15-1.2); Total Protein 6.6 g/dL (6.6-8.7)
[2024-05-11 02:59] LABS: Lactic Sepsis W/Reflex 1.3 mmol/L (0.5-2.2)
[2024-05-11 03:03] LABS: Anion Gap 12.6 (5-19); Potassium 3.6 mmol/L (3.5-5.1)
[2024-05-11 03:05] LABS: Procalcitonin 0.12 ng/mL (0-0.5)
[2024-05-11] MEDS: morphine 4 mg/mL SDV 1 mL 2 MG IVP ×4 (08:08→22:26)
[2024-05-11] MEDS: VANCOMYCIN ADD-Vantage 1,000 MG in 0.9% NaCl ADD-Vantage 250 ML 250 MG IV (08:49)
--- NOTE | 2024-05-11 21:14 | PHA.VACGOAL ---
Vancomycin Goal - Goal Vancomycin Goal:: 10-15 mg/L Vancomycin Indication:: SSTI - Therapy Day of therpy:: Day []of [] . Actual body weight (kg): 130 lb - Data Labs: WBC 16.31 10^3/uL (3.29-11.43) H 05/11/24 02:25 RBC 4.29 10^6/uL (3.85-5.65) 05/11/24 02:25 Hgb 12.70 g/dL (11.27-16.99) 05/11/24 02:25 Hct 39.7 % (36-47) 05/11/24 02:25 MCV 92.5 fl (85-98) 05/11/24 02:25 MCH 29.6 pg (27-33) 05/11/24 02:25 MCHC 32.0 g/dL (30-55) 05/11/24 02:25 RDW 14.4 % (12.1-15.1) 05/11/24 02:25 Sodium 137 mmol/L (136-145) 05/11/24 02:25 Potassium 3.6 mmol/L (3.5-5.1) 05/11/24 02:25 Chloride 100 mmol/L (98-107) 05/11/24 02:25 Carbon Dioxide 28 mmol/L (22-29) 05/11/24 02:25 Anion Gap 12.6 (5-19) 05/11/24 02:25 BUN 12 mg/dL (6-20) 05/11/24 02:25 Creatinine 0.6 mg/dL (0.5-0.9) 05/11/24 02:25 GFR Calculation 109.1 mL/min (90-130) 05/11/24 02:25 Treatment plan:: new consult Regimen:: 1250 MG Q12H
[2024-05-11] MEDS: vancomycin 1,250 MG/250 ML PIGGYBACK 166.67 MG IV (22:26)
[2024-05-12] VITALS: BP 97/54; PULSE 99; O2SAT 97
== END 2024-05-12 00:17 | disposition short-term general hospital (02) ==
PROVIDERS: Emergency Provider Emergency Medicine; PCP Family Medicine
DX: L02.414 Cutaneous abscess of left upper limb (principal)
CPT/HCPCS: 73201; 80053; 83605; 84145; 85025; 86140; 87040; 87070; 96365; 96366; 96367; 96375; 96376; 99285; J1885; J2270; J2543; J3370; J7050

== ENCOUNTER 2025-01-21 18:10 | Emergency (ER) | payer MEDICAID, SELFPAY ==
--- OUTSIDE RECORDS SUMMARY | 2025-01-21 18:16 | XMS_ITS | Continuity of Care Document ---
Author Organization [facility] Mary, [place], [facility] ([facility]) Address [address] [place] [address] Assessment No assessment recorded. Plan of Treatment Reminders Order Date Submit Date Provider Last Modified By Organization Details Last Modified Time Details Appointments None record ed. Lab None record ed. Referral None record ed. Procedures None record ed. Surgeries None record ed. Imaging None record ed. Medication Orders None record ed. Patient TargetsNo targets recorded. Patient InstructionsNo instructions recorded. Reason for Referral None Reported. Problems Name Problem SNOMED Code Status Onset Date Resolution Date Notes Provider Name and Address Organization Details Recorded Time Endometri al ablation Completed 201404/30/2024 Endometri al Ablation; 02/2012; 5 10:41AM by Dyana Brown RN, Office Visit; Promoted; acuity set as *; YENIFER SONYA xiao [facility] 5 16:37:50 Stimulant use disorder Active 2024 Methamphe tamine NATY xiao [facility] 5 23:02:39 Dental caries 16814336 Active 2024 NATY xiao [facility], Mariza.LMerna[facility] 5 23:03:01 History of homeless Active 2024 NATY xiao [facility], CesiaLMernaCMerna 5 23:05:27 Generaliz ed anxiety disorder 68637534 Active 2024 NATY xiao [facility] 5 23:16:26 Disturban ce in mood 64008243 Active 2024 NATY xiao [facility], [place] 5 23:16:56 Bipolar disorder 97892183 Active 2024 NATY xiao [facility], [place] 5 23:17:17 Problem Notes None recorded. Procedures Surgical History Date Name Laterality Status Provider Name and Address Organization Details Recorded Time 05/12/19 CT of wrist completed NATYDAX DENSON [facility], [place] 09/12/2024 23:01:00 partial hysterectomy completed YENIFER HASSAN [facility], [place] 04/30/2024 16:38:26 endometrial ablation completed NATY JANIYA [facility], [place] 05/20/2024 11:59:06 ligation of fallopian tube [facility]20[facility]24 11:59:31 Imaging Results None recorded. Procedure Notes None recorded. Medical Equipment None Reported. Allergies No known drug allergies Medications Name Sig Start Date Stop Date Status Note LastModified by Organization Details LastModified Time celecoxib 200 mg capsule TAKE ONE CAPSULE BY MOUTH TWICE DAILY 04/30 completed Not Available Not Available Not Available betametha sone acetate and sodium phos 6 mg/mL suspensio n for injection Take 1 mL by injectio n route. 05/17 completed Not Available Not Available Not Available methocarb edgar 750 mg tablet TAKE ONE TABLET BY MOUTH EVERY 6 HOURS as needed for SPASMS 05/20 completed Not Available Not Available Not Available hydrocodo ne 7.5 mg-acetam inophen 325 mg tablet Take 1 tablet every 6 hours by oral route as needed. 01/10 completed Not Available Not Available Not Available docusate sodium 100 mg capsule Take 1 capsule every day by oral route for 30 days. 2024 active Not Available Not Available Not Avai lable magnesium citrate oral solution Take 300 mL every day by oral route for 1 day, for constipa tion. 2024 active Not Available Not Available Not Avai lable cephalexi n 500 mg tablet Take 1 tablet every 6 hours by oral route. 01/10 completed Not Available Not Available Not Available hydroxyzi ne HCl 25 mg tablet Take 1 tablet 3 times a day by oral route as needed. 01/10 completed Not Available Not Available Not Available ibuprofen 600 mg tablet TAKE 1 TABLET BY MOUTH THREE TIMES A DAY NEEDED 01/10 completed Not Available Not Available Not Available polyethyl jess glycol 3350 17 gram/dose oral powder Take 17 g every day by oral route for 90 days. 2024 active Not Available Not Available Not Avai lable naproxen 500 mg tablet TAKE ONE TABLET BY MOUTH TWICE DAILY NEEDED FOR PAIN 04/30 completed Not Available Not Available Not Available cyclobenz aprine 5 mg tablet TAKE ONE TABLET BY MOUTH TWICE DAILY 05/20 completed Not Available Not Available Not Available ibuprofen three times daily, as needed 05/20 completed Recorded 06/15/19 15 11:22AM by Rich Villafuerte DO, Office Visit; Refill Quantity : 0; Not Available Not Available Not Available Vitals Date Recorded Body height Body mass index (BMI) Body weight Respiratory rate Oxygen saturation Oxygen saturation in Arterial blood by Pulse oximetry Heart rate Body temperature Systolic And Diastolic Provider Name and Address Organization Details Last Updated DateTime 160.02 cm 22.5 kg/m2 05003.2 3 g 18 /min 99 % 99 % 64 /min 97.9 [degF] 118/70 mm[Hg] TYREE DAY [facility] 15:11:27 Social History Question Answer Notes LastModified by Organizat ion Details LastModified Time Tobacco Smoking Status Current Every Day Smoker YENIFER xiao [facility] 04/30/2024 16:38:11 What Is Your Level Of Caffeine Consumption? Moderate [email or web address] Information not available 05/20/2024 What Was The Date Of Your Most Recent Tobacco Screening? 01/10/2025 [email or web address] Information not available 01/10/2025 What Is Your Relationship Status? Single [email or web address] Information not available 05/20/2024 Have You Used IV Drugs? No [email or web address] Information not available 05/20/2024 Sex: Unknown Functional Status Question Answer Note LastModified by Organizat ion Details LastModified Time Do you use any illicit or recreational drugs? Yes Marijuana daily Information not available 05/20/2024 What is your level of alcohol consumption? Moderate [email or web address] Information not available 05/20/2024 Are you currently employed? No [email or web address] Information not available 05/20/2024 Are you able to walk independently without assistance or assistive devices? [email or web address] Information not available 05/20/2024 Are you able to care for yourself independently? Yes [email or web address] Information not available 05/20/2024 Mental Status None recorded. Family History Relationship Description Onset Age of this Age Resolved Age Notes LastModified by Organization Details LastModified Time Father No current problems or disability [email or web address] Not available 05/08 11:55:32 Mother No current problems or disability [email or web address] Not available 05/08 11:55:33 Medical History No medical history recorded. Gynecological HistoryNo gynecological history recorded. Obstetrics History GPAL:G 0 P 0 0 0 0 Immunizations Vaccine Type Date Status Note Provider Nam e and Address Organization Details Recorded Time Td(adult) unspecified formulation 5 completed Not Available [facility] 10/05/2022 02:47:14 Tdap 5 completed Not Available [facility] 01/10/2025 16:43:36 Past Encounters Encounter ID Performer Location Encounter Start Date Encounter Closed Date Diagnosis/Indication Diagnosis SNOMED-CT Code Diagnosis ICD10 Code Diagnosis IMO Codes Diagnosis Note [id number] SOFY DRISCOLL [facility] ([facility]) [address] [place] [phone] 01/10/2025 16:43:10 01/10/2025 17:20:19 Acute constipation 818472454 K59.00 [id number] Patient presents with constipati on. Recommend increasing oral fluids with non-caffei nated beverages. Increase daily dietary fiber. Tylenol may be used as needed for cramping. RTC with any new or worsening symptoms. [id number] SOFY DRISCOLL [facility] ([facility]) [address] [place] [address] 01/15/2025 15:00:51 01/15/2025 15:53:55 Pain in bilateral legs 6113734274 1093317 M79.604 M79.605 [id number] Will apply Randy wraps for comfort. May elevate legs while seated. May use tylenol as needed for pain/disco mfort. Discussed patient to not wear ill fitting shoes/ rocker soled shoes. RTC with any new or worsening symptoms. Health Concerns Section Related Observation LastModified by Organization Detai ls LastModified Time None Recorded Concern Status LastModified by Organization Details LastModified Time None Recorded Payers Encounter Date Sequence Insurance Name Policy Number Policy Ledezma Covered Member ID Ledezma Member ID Guarantor Name 01/15/2025 1 [facility] (MEDICAID HMO) Bree Winston [id number] Bree Winston Notes Date Note Type Note Provider Name and Address Organization Details Recorded Time 01/15/2025 text/html ROS as noted in the HPI walk-in; PCP Stephanie Lundberg Patient c/o right leg pain. She states she wore different shoes all day and pain started after she was able to take them off. Both legs and ankles are swollen and have several bruises. The right foot and toes are bruised as well. Patient states that she tied the shoes extra tight because she believed they would make her ankles thin . Patient states that the shoes had a rocker sole for leg toning. SOFY DRISCOLL [address] [place], [address], [facility], [place] 01/15/2025 15:41:18 OBGyn Episode No OBEpisode recorded.
--- OUTSIDE RECORDS SUMMARY | 2025-01-21 18:16 | XMS_ITS | Clinical Summary ---
Author Organization [facility] Address [address] [place] [address] Phone Care Team Providers Care Cooling Tower Operator Name Role Phone Nolan Soto MD Primary Care Provider [phone] Allergies No known active allergies Medications HYDROcodone-miguel angel taminophen (NORCO) 7.5-325 mg TabletIndicatio ns:Abscess of left forearm Take 1 Tablet by mouth every 4 hours as needed for Pain. Max Daily Amount: 6 Tablets 20 Tablet 05/16/2024 12:49 PM CDT 5 Active hydrOXYzine HCL (ATARAX) 25 mg tablet Take 1 Tablet (25 mg) by mouth every 6 hours as needed for Itching. 15 Tablet 05/16/2024 12:49 PM CDT 5 Active naloxone (NARCAN) 4 mg/spray [place], Non-Aerosol EMERGENCY USE ONLY: Administer 1 spray (4 mg) in one nostril one time. May repeat in alternating nostrils every 2-3 min until responsive or EMS arrives. 2 Each 3 05/16/2024 12:49 PM CDT 5 Active Active Problems Problem Noted Date Diagnosed Date Homeless 05/13/2024 Abscess of left forearm 05/12/2024 Tobacco use 05/12/2024 Substance abuse 05/12/2024 Encounters Date Type Department Care Team Description 11/23/2024 External Device Data [facility] Provider, Abstract 11/23/2024 External Device Data [facility] Provider, Abstract 11/16/2024 External Device Data [facility] Provider, Abstract 10/27/2024 External Device Data [facility] Provider, Abstract 10/26/2024 External Device Data [facility] Provider, Abstract from Last 3 Months Immunizations Immunization Administration Dates Next Due (ADACEL/BOOSTRIX)(10 YR UP) TDAP VACCINE, 0.5ML, IM 05/12/2024 Social History Tobacco Use Types Packs/Day Years Used Date Smoking Tobacco: Some Days Cigarettes Tobacco Cessation:Ready to Q uit: Not Asked; Counseling Given: Not Answered Feeling Safe Answer Date Recorded Are you in a relationship wi th someone who hurts you emotionally and/or physically? 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 Gender Identity Not on file Sexual Orientation Not on file Last Filed Vital Signs Vital Sign Reading Time Taken Comments Blood Pressure 115/54 05/16/2024 8:27 AM CDT Pulse 65 05/16/2024 8:27 AM CDT Temperature 36.1 C (97 F) 05/16/2024 8:27 AM CDT Respiratory Rate 17 05/16/2024 8:27 AM CDT Oxygen Saturation 99% 05/16/2024 8:27 AM CDT Inhaled Oxygen Concentration - - Weight 58.5 kg (129 lb) 05/16/2024 4:24 AM CDT Height 160 cm (5' 3 ) 05/12/2024 2:36 AM BARREL DRILLER Body Mass Index 22.85 05/12/2024 2:36 AM BARREL DRILLER Plan of Treatment Health Maintenance Due Date Last Done Comments HEPATITIS B VACCINES (1 of 3 - 19+ 3-dose series) 09/19/1999 HPV/Cotest (21-29) 2001 HPV VACCINES (1 - 3-dose SCDM series) 09/19/2007 CERVICAL CANCER SCREENING 2010 HPV/Cotest (30-65) 2010 PAP SMEAR 2010 BREAST CANCER SCREENING 2020 INFLUENZA VACCINE (#1) 2024 DTAP/TDAP/TD VACCINES (2 - Td or Tdap) 05/12/2034, 06/14/2014 Insurance [employer] MED[employer] RX INFOCROSSING Medicaid Advance Directives For more information, please contact: [phone] * Full Code (Latest Code Status on File) Date Activated Date Inactivated Comments 05/12/2024 2:49 AM 05/16/2024 3:46 PM Care Teams Cooling Tower Operator Relationship Specialty Start Date End Date Nolan Soto MD [address] [facility] [address] [place] [id number] PCP - General Family Practice 05/12/24
--- OUTSIDE RECORDS SUMMARY | 2025-01-21 18:16 | XMS_ITS | Data Portability ---
Author Organization [place] - [facility] Kaleb Hernandez [facility] Address [address] [place] [address] Assessment Encounter Date Assessment Date Assessment LastModified by Organization Details LastModified Time 05/20/2024 05/20/2024 Patient is almost certain she got bit or something and it was on her left wrist. She has continued cephalexin. She is currently homeless and walks to her appointments. Advised her to contact Medicaid transport for a ride to surgery follow-up. Not available 05/30/2024 21:32:07 Plan of Treatment Reminders Order Date Submit Date Provider Last Modified By Organization Details Last Modified Time Details Appointments None recorded. Lab None recorded. Referral None recorded. Procedures None recorded. Surgeries None recorded. Imaging None recorded. Medication Orders docusate sodium 100 [address] capsule [address] [facility] #[id number], [address] [address], [address], 16:57:58 magnesium citrate oral solution [address] [facility] #[id number], [address] [address], [place], [address], 16:57:58 betamethaso ne acetate and sodium phos 6 mg/mL suspension for injection 2024 025 9 Not available 11:29:30 ibuprofen [address] [facility] #[id number], [address] [facility] [address], [place], [address], 5 16:51:55 Patient TargetsNo targets recorded. Patient Instructions Encounter Date Encounter Id Patient Instructions Last Modified By Organization Details Last Modified Time 05/20/2024 [id number] Call or return for questions or concerns. Not available 05/30/2024 21:31:24 Reason for Referral None Reported. Problems Name Problem SNOMED Code Status Onset Date Resolution Date Notes Provider Name and Address Organization Details Recorded Time Endometri al ablation Completed 201404/30/2024 Endometri al Ablation; 02/2012; 5 10:41AM by Dyana Brown RN, Office Visit; Promoted; acuity set as *; YENIFER xiao [facility], [place].[facility] 5 16:37:50 Stimulant use disorder Active 2024 Methamphe tamine NATY xiao [facility], [place].[facility] 5 23:02:39 Dental caries 48218285 Active 2024 NATY xiao [facility], L.L.[facility] 5 23:03:01 History of homeless Active 2024 NATY xiao [facility], CesiaL.CMerna 5 23:05:27 Generaliz ed anxiety disorder 58899390 Active 2024 NATY xiao [facility], [facility] 5 23:16:26 Disturban ce in mood 53485577 Active 2024 NATY xiao [facility], [place].[facility] 5 23:16:56 Bipolar disorder 69495350 Active 2024 NATY xiao [facility], Cesia[facility] 5 23:17:17 Problem Notes None recorded. Procedures Surgical History Date Name Laterality Status Provider Name and Address Organization Details Recorded Time 05/12/[address] of wrist [facility] 09/12/2024 23:01:00 partial hysterectomy completed YENIFERPATRICIA MU[facility]IZY [facility] 04/30/2024 16:38:26 endometrial ablation completed [facility] 05/20/2024 11:59:06 [facility] 11:59:31 Imaging Results None [...] Available Not Available Vitals Date Recorded Body weight Body mass index (BMI) Body height Respiratory rate Oxygen saturation Oxygen saturation in Arterial blood by Pulse oximetry Heart rate Body temperature Systolic And Diastolic Provider Name and Address Organization Details Last Updated DateTime 5 91307.0 1 g 23 kg/m2 160.02 cm 16 /min 98 % 98 % 85 /min 98.2 [degF] 136/94 mm[Hg] YENIFER HASSAN [facility] 5 16:42:15 Date Recorded Body height Body mass index (BMI) Body weight Oxygen saturation Oxygen saturation in Arterial blood by Pulse oximetry Heart rate Respiratory rate Systolic And Diastolic Provider Name and Address Organization Details Last Updated DateTime 5 160.02 cm 23 kg/m2 01100.0 1 g 96 % 96 % 90 /min 20 /min 104/62 mm[Hg] NATY DENSON [facility] 5 11:52:38 Date Recorded Body height Body mass index (BMI) Body weight Oxygen saturation Oxygen saturation in Arterial blood by Pulse oximetry Heart rate Respiratory rate Body temperature Systolic And Diastolic Provider Name and Address Organization Details Last Updated DateTime 5 160.02 cm 22.3 kg/m2 36198.6 4 g 98 % 98 % 86 /min 16 /min 98.2 [degF] 112/66 mm[Hg] Aleja Jaffe [facility] 5 16:53:35 Date Recorded Body height Body mass index (BMI) Body weight Respiratory rate Oxygen saturation Oxygen saturation in Arterial blood by Pulse oximetry Heart rate Body temperature Systolic And Diastolic Provider Name and Address Organization Details Last Updated DateTime 160.02 cm 22.5 kg/m2 54857.2 3 g 18 /min 99 % 99 % 64 /min 97.9 [degF] 118/70 mm[Hg] TYREE DAY [facility] 15:11:27 Social History Question Answer Notes LastModified by XDC Details LastModified Time Tobacco Smoking Status Current Every Day Smoker YENIFER SONYA xiao [facility] 04/30/2024 16:38:11 What Is Your Level Of Caffeine Consumption? Moderate [email or web address] Information not available 05/20/2024 What Was The Date Of Your Most Recent Tobacco Screening? 01/10/2025 [email or web address] Information not available 01/10/2025 What Is Your Relationship Status? Single [email or web address] Information not available 05/20/2024 Have You Used IV Drugs? No Information not available 05/20/2024 Sex: Unknown Functional Status Question Answer Note LastModified by XDC Details LastModified Time Do you use any illicit or recreational drugs? Yes Marijuana daily [email or web address] Information not available 05/20/2024 What is your level of alcohol consumption? Moderate [email or web address] Information not available 05/20/2024 Are you currently employed? No [email or web address] Information not available 05/20/2024 Are you able to walk independently without assistance or assistive devices? YESWOREST [email or web address] Information not available 05/20/2024 Are you able to care for yourself independently? Yes [email or web address] Information not available 05/20/2024 Mental Status None recorded. Family History Relationship Description Onset Age of this Age Resolved Age Notes LastModified by Organization Details LastModified Time Father No current problems or disability [email or web address] Not available 05/08 11:55:32 Mother No current problems or disability [email or web address] Not available 05/08 11:55:33 Medical History No medical history recorded. Gynecological HistoryNo gynecological history recorded. Obstetrics History GPAL:G 0 P 0 0 0 0 Immunizations Vaccine Type Date Status Note Provider Nam e and Address Organization Details Recorded Time Td(adult) unspecified formulation 5 completed Not Available [facility] 10/05/2022 02:47:14 Tdap 5 completed Not Available [facility] 01/10/2025 16:43:36 Past Encounters Encounter ID Performer Location Encounter Start Date Encounter Closed Date Diagnosis/Indication Diagnosis SNOMED-CT Code Diagnosis ICD10 Code Diagnosis IMO Codes Diagnosis Note [id number] SUDHA AGUILERA [facility] ([facility]) [address] [place] [phone] 5 04/30/2024 16:30:06 04/30/2024 17:53:47 Low back pain 987116176 M54.50 RTC with any new or worsening symptoms. [id number] STEPHANIE GARCIA [facility] ([facility]) [address] [place] [address] [phone] 5 05/20/2024 11:32:16 05/20/2024 12:30:16 Abscess of skin of left wrist 2828299313 6210587 L02.414 Follow-up with surgeon on Friday. [id number] SUDHA AGUILERA [facility] ([facility]) [address] [place] [address] [phone] 5 01/10/2025 16:43:10 01/10/2025 17:20:19 Acute constipation 627550513 K59.00 [id number] Patient presents with constipati on. Recommend increasing oral fluids with non-caffei nated beverages. Increase daily dietary fiber. Tylenol may be used as needed for cramping. RTC with any new or worsening symptoms. [id number] SUDHA AGUILERA [facility] ([facility]) [address] [place] [address] [id number] 5 01/15/2025 15:00:51 01/15/2025 15:53:55 Pain in bilateral legs 2588295091 1641793 M79.604 M79.605 [id number] Will apply Randy wraps for comfort. May elevate legs while seated. May use tylenol as needed for pain/disco mfort. Discussed patient to not wear ill fitting shoes/ rocker soled shoes. RTC with any new or worsening symptoms. Health Concerns Section Related Observation LastModified by Organization Detai ls LastModified Time None Recorded Concern Status LastModified by Organization Details LastModified Time None Recorded Advance Directives Directive None Recorded Payers Insurance Date Sequence Insurance Name Policy Number Policy Ledezma Covered Member ID Ledezma Member ID Guarantor Name 01/17/2025 [facility] (MEDICAID HMO) Bree Dawkins [place] [id number] Bree Dawkins [place] 01/15/2025 1 [facility] (MEDICAID HMO) Bree Dawkins [place] [id number] Bree Dawkins [place] Notes Date Note Type Note Provider Name and Address Organization Details Recorded Time 04/30/19 25 text/htm l Joint PainReported by PatientHPIFor location, patient reportspain radiating to the buttocksbut reportsleft hip. For quality, patient reportssharp. For severity, patient reportsworseningandinterferes with sleep. For duration, patient reportspresent <1 month. For associated symptoms, patient reportsno feverandno numbness of the legs/feet.ROS as noted in the HPI walk-inPt stated that she has had this pain before. pt denies any recent injury. She stated that she was at the Crisis center this morning and around noon they gave her Ibuprofen and that gave her some relief. SUDHA AGUILERA [address], [address], [facility] 04/30/2024 17:50:11 05/21/19 25 text/htm l Skin LesionReported by PatientHPIFor location, patient reportswrist. For quality, patient reportstenderandsore. For severity, patient reportsmoderate. For timing, patient reportsabrupt. For context, patient reportsinfection. For associated symptoms, patient reportsno fever. For alleviating factors, (surgical drainage of abscess and iv antibiotics). STEPHANIE GARCIA, [facility] [address] [place], [address], [facility] 05/30/2024 21:32:54 01/11/20 25 text/htm l ConstipationReported by PatientROS as noted in the HPI walk in patientpatient is here today for constipation, patient said that she [facility] in [facility] and she can not have bowel movements when in [facility]. Patient states that she has had small pellet like stools. SOFY DRISCOLL [address] [place], [address], [facility] 01/10/2025 16:59:09 01/16/20 25 text/htm l ROS as noted in the HPI walk-in; PCP Stephanie Garcia Patient c/o right leg pain. She states [...] sole for leg toning. SOFY DRISCOLL [address] [place], [address], [facility] 01/15/2025 15:41:18 OBGyn Episode No OBEpisode recorded.
[2025-01-21 18:25] VITALS: BP 141/73; PULSE 105; RESP 18; TEMP 36.7; O2SAT 99
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
--- NOTE | 2025-01-22 10:36 | CSC.NCNOTE_ITS ---
CSC Nurse Contact Note Nurse Contact Note Client presented today and requested to stay here today and to take a shower. Client stated that she saw two people following her. V/S WNL, aside from pulse of 130. Client was in lobby and talking to herself, when she came to the front window, she seemed very distraught and had disorganized speech. Reached out to [facility], they were on another call right now. Called Dr. Hobson, no answer, sent message, awaiting response. Client is denying SI/HI and CSC team does not feel like she is a harm to herself or others at this time.
--- NOTE | 2025-01-22 10:58 | W.CSC.NURCN ---
[facility] Nurse Contact Note Nurse Contact Note Client was taking a shower and stepped out and asked if someone could come look at her leg because she couldn't put her pants on or bend her leg. Client's right hip and ankle appeared to be swollen. Right hip was red and bruised. Client did state that she slept behind the [employer] [facility] last night on the concrete slab. Client stated she was in pain and was going to go to the ER. Nurse called ER and spoke with Casi, informed her of the R hip hip and where she slept and active psychosis and stated that it could be drug induced. Nurse stated she would let the physician know and they would do a mental health evaluation as well. Client left [facility] and stated she was going straight to the ER
== END 2025-01-21 18:45 | disposition home or self-care (01) ==
PROVIDERS: Emergency Provider Physician Assistant; PCP Family Medicine
DX: Z00.00 Encounter for general adult medical examination without abnormal findings (principal); Z73.5 Social role conflict, not elsewhere classified; Z59.00 Homelessness unspecified
CPT/HCPCS: 99281

== ENCOUNTER 2025-01-22 11:23 | Emergency (ER) | payer MEDICAID, SELFPAY ==
--- OUTSIDE RECORDS SUMMARY | 2025-01-22 11:30 | XMS_ITS | Clinical Summary ---
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 Gender Identity Not on file Sexual Orientation [...] cm (5' 3 ) 05/12/2024 2:36 AM BANDMILL OPERATOR Body Mass Index 22.85 05/12/2024 2:36 AM BANDMILL OPERATOR Plan of Treatment Health Maintenance Due Date Last Done Comments HEPATITIS B VACCINES (1 of 3 - 19+ 3-dose series) 09/19/1999 HPV/Cotest (21-29) 2001 HPV VACCINES (1 - 3-dose SCDM series) 09/19/2007 CERVICAL CANCER SCREENING 2010 HPV/Cotest (30-65) 2010 PAP SMEAR 2010 BREAST CANCER SCREENING 2020 INFLUENZA VACCINE (#1) 2024 DTAP/TDAP/TD VACCINES (2 - Td or Tdap) 05/12/2034, 06/14/2014 Insurance [employer] MEDICA[employer] RX INFOCROSSING Medicaid Advance Directives For more information, please contact: [phone] * Full Code (Latest Code Status on File) Date Activated Date Inactivated Comments 05/12/2024 2:49 AM 05/16/2024 3:46 PM Care Teams Geology Associate Relationship Specialty Start Date End Date Nolan Soto MD [address] [facility] [address] [place] [id number] PCP - General Family Practice 05/12/24
[2025-01-22 11:46] VITALS: BP 101/68; PULSE 93; RESP 17; TEMP 36.6; O2SAT 98; BMI 21.5
--- NOTE | 2025-01-22 11:50 | XRR_ITS ---
PROCEDURE INFORMATION: Exam: XR Right Hip Exam date and time: 01/22/2025 12:12 PM Age: 44 years old Clinical indication: Hip pain; Right hip; Additional info: -lower back/rt hip pain x approx 1 week; Abrasions to posterior/lateral RT hip TECHNIQUE: Imaging protocol: Radiologic exam of the right hip. Views: 1 view hip with pelvis when performed. COMPARISON: CR XR lumbar spine 2-3V* [id number] 11/12/2023 4:28 PM FINDINGS: Bones/joints: Normal alignment. No acute fracture. Soft tissues: Unremarkable. XR/XR hip RT 2-3V wo/w pel* [id number] IMPRESSION: No acute osseous abnormality.
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
== END 2025-01-22 12:49 | disposition home or self-care (01) ==
PROVIDERS: Emergency Provider Family Medicine; PCP Family Medicine
DX: M25.551 Pain in right hip (principal)
CPT/HCPCS: 73502; 99284

== ENCOUNTER 2025-01-22 17:19 | Emergency (ER) | payer MEDICAID, SELFPAY ==
[2025-01-22 17:24] VITALS: BP 100/66; PULSE 102; RESP 18; TEMP 36.7; O2SAT 96; BMI 21.5
--- NOTE | 2025-01-22 17:35 | XRR_ITS ---
PROCEDURE INFORMATION: Exam: XR Right Knee Exam date and time: 01/22/2025 5:41 PM Age: 44 years old Clinical indication: Pain; Knee; Right; Additional info: Trauma TECHNIQUE: Imaging protocol: Radiologic exam of the right knee. Views: 1 or 2 views. COMPARISON: No relevant prior studies available. FINDINGS: Bones/joints: Normal. Soft tissues: Normal. XR/XR knee RT 1-2V [id number] IMPRESSION: No acute findings.
--- NOTE | 2025-01-22 18:05 | ED_ITS ---
HPI - Extremity Problem General: Chief complaint: Extremity Injury, Lower Stated complaint: Rt leg pain Time Seen by Provider: 01/22/25 17:31 History of Present Illness: Patient is 44-year-old female that returns back to ED with complaints of right knee pain. Patient went to move a table out of the way yesterday, pick it up, and pull it toward her, and hit her right knee. She states she has lower extremity swelling after walking, and having increased knee pain. This occurred yesterday, however pain was worsening today. Patient was seen here earlier for right hip pain. Prevailing issues: Homelessness No hallucinations, no suicidal ideas or thoughts. Associated symptoms: Deny chest pain, fever(s) or rash Related Data Previous Rx's ?Medication ?Instructions ?Recorded diclofenac sodium 75 mg 75 mg PO Q12H PRN pain #20 t abs 01/22/25 tablet,delayed release Allergies Allergy/AdvReac Type Severity Reaction Status Date / Time No Known Allergies Allergy Verified 06/29/24 08:37 Review of Systems General: Reports: 10 or more systems reviewed and unremarkable except in HPI and below Const: Denies: fever(s) or chills Card: Denies: chest pain Resp: Denies: dyspnea GI: Denies: abdominal pain : Denies: dysuria, urinary frequency or urinary urgency Musc: Denies: neck pain or back pain Skin/Breast: Denies: rash Neuro: Denies: headache(s) or numbness in extremities PFS ED PFSH: Medical History (Updated 01/22/25 @ 18:44 by CARLY Wu) Psychiatric care Methamphetamine use disorder, moderate, 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 Dental abscess Physical Exam Const: COMMON NORMALS: no acute distress GENERAL APPEARANCE: cooperative and comfortable ORIENTATION/CONSCIOUSNESS: Yes awake, Yes oriented to person, Yes oriented to place and Yes oriented to time HENMT: COMMON NORMALS: normocephalic, atraumatic and hearing grossly normal bilaterally HEAD & SCALP: normocephalic and atraumatic Eye: COMMON NORMALS: Equal, round and reactive pupils present and EOMs intact bilaterally PUPIL: Yes Equal, round and reactive pupils present Lymph: LYMPHATIC: no lymphadenopathy noted Resp: COMMON NORMALS: normal respiratory effort, No retractions, No use of accessory muscles and clear to auscultation bilaterally AUSCULTATION: clear to auscultation bilaterally Cardio: COMMON NORMALS: regular rate, regular rhythm and No murmurs present (Cardio) RATE: regular rate RHYTHM: regular rhythm GI: COMMON NORMALS: Soft to palpation and No hepatosplenomegaly present AUSCULTATION: Yes normoactive bowel sounds PALPATION: Yes Soft to palpation, No Tenderness to palpation present (GI), No Guarding due to palpation present ( GI) and Yes No hepatosplenomegaly present : COMMON NORMALS: Yes no CVA tenderness BLADDER/KIDNEY EXAM: Yes no CVA tenderness Back/Pelvis: COMMON NORMALS: no CVA tenderness and thoracic and lumbar spine normal to inspection Extremity: COMMON NORMALS: normal to inspection, capillary refill normal, no clubbing, cyanosis or edema and no calf tenderness GENERAL: Yes edema (Mild left lower extremity) Neuro: SENSORIUM/ORIENTATION: Yes oriented to person, Yes oriented to place and Yes oriented to time Skin: COMMON NORMALS: no rashes or lesions noted GENERAL SKIN EXAM: no rashes or lesions noted Course Vital Signs: Vital signs: Vital Signs Temperature 98.1 F 01/22/25 17:24 Pulse Rate 102 H 01/22/25 17:24 Respiratory Rate 18 01/22/25 17:24 Blood Pressure 100/66 01/22/25 17:24 Pulse Oximetry 96 01/22/25 17:24 Oxygen Delivery Me thod Room Air 01/22/25 17:24 MDM - Extremity (Nontraumatic) Medical Decision Making Patient is 44-year-old female with homelessness, presents back to the ED with right knee pain. X-rays pending, on my view there appears to be a small irregularity on distal femur. Will await over read for further decision making. Reading of right knee does not show any irregularity or acute changes. Will discharge home with Toradol, Norflex. 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 She is on foot, and homeless. Medical Records I reviewed the patient's medical records. Lab Data Radiology Impressions Knee X-Ray 01/22/25 17:35 IMPRESSION: No acute findings. All radiology interpretation(s) finalized by discharge ED provider radiology interpretation(s): Mild irregularity distal femur Discharge Plan Discharge Patient Disposition: Home Clinical Impression: Homelessness Contusion of knee, right Qualifiers: Encounter type: initial encounter Qualified Code(s): S80.01XA - Contusion of right knee, initial encounter Condition: Stable Prescriptions: No Action diclofenac sodium 75 mg tablet,delayed release (DR/EC) 75 mg PO Q12H PRN (Reason: pain) Qty: 20 0RF Discharge Orders: Discharge ED (Routine); Ordered 01/22/25 Ordered By: Jayda Darden Referrals: Nolan Soto MD [Primary Care Provider, Family Practice] Discharge Diet: Usual diet Discharge Activity: Increase activity as tolerated Patient Instructions: Knee Sprain (DC) Activity Restrictions/Additional Instructions: - Randy wrap to right knee for pain. -Elevate as needed for pain - supervisor roller printing your medication at the pharmacy - Return for an emergency. Otherwise follow-up with primary care. Referral will be made for primary care Thank you for choosing [facility] for your healthcare needs today. You have been screened and evaluated and felt safe for discharge. Health conditions do change or evolve sometimes and as such it is important that you follow up with your Primary Doctor to be re checked, 3-5 days is a general good time frame for follow up. 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
[2025-01-22] MEDS: orphenadrine 30 mg/mL Inj 2 mL 60 MG IM (19:13)
--- NOTE | 2025-01-24 09:52 | DCPLANNER ---
messaged wpfm for er f/u
== END 2025-01-22 19:19 | disposition home or self-care (01) ==
PROVIDERS: Emergency Provider Physician Assistant; PCP Family Medicine
DX: S80.01XA Contusion of right knee, initial encounter (principal); Z59.00 Homelessness unspecified; X58.XXXA Exposure to other specified factors, initial encounter
CPT/HCPCS: 73560; 96372; 99284; J1885; J2360

== ENCOUNTER 2025-01-22 22:38 | Emergency (ER) | payer MEDICAID, SELFPAY ==
[2025-01-22 22:53] VITALS: BP 104/73; PULSE 81; RESP 16; TEMP 36.4; O2SAT 97; BMI 21.5
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
== END 2025-01-22 23:50 | disposition home or self-care (01) ==
PROVIDERS: Emergency Provider Physician Assistant; PCP Family Medicine
DX: Z73.5 Social role conflict, not elsewhere classified (principal); Z59.00 Homelessness unspecified; Z00.00 Encounter for general adult medical examination without abnormal findings
CPT/HCPCS: 99281

== ENCOUNTER 2025-02-08 09:52 | Inpatient (IN) | payer MEDICAID, SELFPAY ==
[2025-02-08 10:00] VITALS: BP 119/59; PULSE 85; RESP 17; TEMP 36.8; O2SAT 99; BMI 23.0
--- NOTE | 2025-02-08 10:08 | W.ED.PSYCHS ---
HPI - Psych General: Chief Complaint: Psychiatric Symptoms Stated Complaint: MHE Time Seen by Provider: 02/08/25 10:03 History of Present Illness: 44-year-old female with a history of cannabis use disorder, methamphetamine abuse in remission, history of admission for suicidal ideation in the past who presents to the emergency room with thoughts of suicide over not wanting to wake up . She also has been having issues with agitation and paranoia. She says she is yelled at people that she did not need to yell out and she knew afterwards she should have done it. She been to the crisis center and they told her that likely she should come in for treatment and she also tells me that she plans on checking into an inpatient rehab for marijuana next Friday for 30 days. She has no specific plan for suicide. Related Data Home Medications ?Medication ?Instructions ?Recorded ?Confirmed acetaminophen 500 mg tablet 1,500 mg PO Q6H PRN Fever Or Pain 02/08/25 02/08/25 (Tylenol Extra Strength) ibuprofen 200 mg tablet (Advil) 800 mg PO Q6H PRN Fever Or Pain 02/08/25 02/08/25 Previous Rx's ?Medication ?Instructions ?Recorded diclofenac sodium 75 mg 75 mg PO Q12H PRN pain #20 tabs 01/22/25 tablet,delayed release Allergies Allergy/AdvReac Type Severity Reaction Status Date / Time No Known Allergies Allergy Verified 06/29/24 08:37 Review of Systems Narrative: Constitutional symptoms: Negative except as documented in HPI. Skin symptoms: Negative except as documented in HPI. Eye symptoms: Negative except as documented in HPI. ENMT symptoms: Negative except as documented in HPI. Respiratory symptoms: Negative except as documented in HPI. Cardiovascular symptoms: Negative except as documented in HPI. Gastrointestinal symptoms: Negative except as documented in HPI. Genitourinary symptoms: Negative except as documented in HPI. Musculoskeletal symptoms: Negative except as documented in HPI. Neurologic symptoms: Negative except as documented in HPI. Psychiatric symptoms: Negative except as documented in HPI. Endocrine symptoms: Negative except as documented in HPI. 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 Skin: Warm, dry. Head: Normocephalic, atraumatic. Neck: Supple, trachea midline. Eye: Extraocular movements are intact. Ears, nose, mouth and throat: mucosa moist. Cardiovascular: Regular, Normal peripheral perfusion. Respiratory: Lungs are clear to auscultation, respirations are non-labored, breath sounds are equal, Symmetrical chest wall expansion. Gastrointestinal: Soft, Nontender, Non distended Musculoskeletal: Normal ROM, no deformity. Neurological: Alert and oriented, No focal neurological deficit observed. Psychiatric: Cooperative, patient is a bit noncommittal but does imply thoughts of suicide. Course Vital Signs: Vital signs: Vital Signs Temperature 98.2 F 02/08/25 10:00 Pulse Rate 85 02/08/25 10:00 Respiratory Rate 17 02/08/25 10:00 Blood Pressure 119/59 02/08/25 10:00 Pulse Oximetry 99 02/08/25 10:00 Oxygen Delivery Me thod Room Air 02/08/25 10:00 MDM - Psych Medical Decision Making Medical decision making: Patient's reason for coming to the emergency room: Agitation, possible suicidal thoughts Social determinants: Patient is homeless I reviewed the patient's medical record. Patient's last admission to the psychiatric facility here was for suicidal thoughts in December of last year. I reviewed the patient's current home meds Patient is not on any chronic medications at this time. Alternate historians: No alternative historian Differential diagnosis: Patient with reported depression and suicidal ideation. concerns for infection, alcohol intoxication, cardiac issues or other medical problems prior to psychiatric admission. Workup: labwork, ekg ordered to evaluate the pathologies and to clear the patient medically prior to psychiatric admission Lab Review: Laboratory results were reviewed and interpreted by myself the emergency room physician. - Medically cleared. - EKG shows no ischemic changes. - Blood alcohol level is negative, -Tylenol and salicylate levels are negative. - Drug screen is positive for amphetamines and marijuana ?Urine shows signs of infection antibiotics are being started - No anemia. - BUN and creatinine are within normal limits. Assessment of risk: - Level of risk: High risk patient. Suicide risk. Homeless. - Was hospitalization considered? Patient is being admitted Consultation: Spoke with Dr. Hobson who is on-call for psychiatry who agrees to admission. Assessment and plan: Depression Suicidal ideation Agitation Anxiety Urinary tract infection ? P.o. Keflex started in the emergency room. Continue 3 times daily for 7 days -Admission to neuropsychiatric unit for continued evaluation and treatment. - All lab work was reviewed and interpreted personally by myself, the ER physician - Evaluation and treatment of this problem were appropriate in the emergency setting Lab Data 02/08/25 10:39 02/08/25 10:39 Laboratory Results WBC 6.78 10^3/uL (3.29-11.43) 02/08/25 10:39 RBC 4.37 10^6/uL (3.85-5.65) 02/08/25 10:39 Hgb 12.80 g/dL (11.27-16.99) 02/08/25 10:39 Hct 40.6 % (36-47) 02/08/25 10:39 MCV 92.9 fl (85-98) 02/08/25 10:39 MCH 29.3 pg (27-33) 02/08/25 10:39 MCHC 31.5 g/dL (30-55) 02/08/25 10:39 RDW 13.2 % (12.1-15.1) 02/08/25 10:39 Plt Count 241 10^3/cmm (157-399) 02/08/25 10:39 MPV 10.5 fL (7.4-10.4) H 02/08/25 10:39 Neut % (Auto) 68.2 % 02/08/25 10:39 Lymph % (Auto) 20.8 % 02/08/25 10:39 [place]verse % (Auto) 6.8 % 02/08/25 10:39 Eos % (Auto) 2.7 % 02/08/25 10:39 Baso % (Auto) 1.2 % 02/08/25 10:39 Neut # (Auto) 4.63 10^3/uL (1.8-7.7) 02/08/25 10:39 Lymph # (Auto) 1.4 10^3/uL (0.8-4.8) 02/08/25 10:39 [place]verse # (Auto) 0.5 10^3/uL (0.2-0.9) 02/08/25 10:39 Eos # (Auto) 0.2 10^3/uL (0.0-0.8) 02/08/25 10:39 Baso # (Auto) 0.1 10^3/uL (0.0-0.1) 02/08/25 10:39 Nucleated RBC % (auto) 0 % 02/08/25 10:39 Nucleated RBCs # 0.0 /100WBC 02/08/25 10:39 Sodium 140 mmol/L (136-145) 02/08/25 10:39 Potassium 3.7 mmol/L (3.5-5.1) 02/08/25 10:39 Chloride 104 mmol/L (98-107) 02/08/25 10:39 Carbon Dioxide 27 mmol/L (22-29) 02/08/25 10:39 Anion Gap 12.7 (5-19) 02/08/25 10:39 BUN 13 mg/dL (6-20) 02/08/25 10:39 Creatinine 0.4 mg/dL (0.5-0.9) L 02/08/25 10:39 GFR Calculation 173.4 mL/min (90-130) H 02/08/25 10:39 Glucose 79 mg/dL (65-115) 02/08/25 10:39 Calculated Osmolality 289 mOsm/kg (285-295) 02/08/25 10:39 Calcium 8.1 mg/dL (8.5-10.5) L 02/08/25 10:39 Total Bilirubin 0.2 mg/dL (0.15-1.2) 02/08/25 10:39 AST 25 U/L (0-32) 02/08/25 10:39 ALT 25 U/L (0-33) 02/08/25 10:39 Alkaline Phosphatase 65 U/L (35-105) 02/08/25 10:39 Total Protein 6.3 g/dL (6.6-8.7) L 02/08/25 10:39 Albumin 3.6 g/dL (3.5-5.2) 02/08/25 10:39 Globulin 2.7 g/dL (1.3-4.6) 02/08/25 10:39 TSH 0.30 uIU/mL (0.27-4.20) 02/08/25 10:39 HCG, Qual Negative (Negative) 02/08/25 10:47 Urine Color Yellow (Yellow) 02/08/25 10:47 Urine Appearance Turbid (CLEAR) A 02/08/25 10:47 Urine pH 6.0 (5-7) 02/08/25 10:47 Ur Specific [place] 1.027 (1.005-1.030) 02/08/25 10:47 Urine Protein 1+ (Negative) A 02/08/25 10:47 Urine Glucose (UA) Negative (Normal) 02/08/25 10:47 Urine Ketones Trace (Negative) 02/08/25 10:47 Urine Blood Negative (Negative) 02/08/25 10:47 Urine Nitrate Negative (Negative) 02/08/25 10:47 Urine Bilirubin Negative (Negative) 02/08/25 10:47 Urine Urobilinogen 1.0 mg/dL (Negative) 02/08/25 10:47 Ur Leukocyte Esterase 2+ (Negative) A 02/08/25 10:47 Urine RBC 0-2 /hpf (0-2) 02/08/25 10:47 Urine WBC >100 /hpf (0-5) H 02/08/25 10:47 Ur Squamous Epith Cells 11-20 /hpf (0-5) H 02/08/25 10:47 Amorphous Sediment Not Reportable 02/08/25 10:47 Urine Bacteria 4+ /hpf (NONE) H 02/08/25 10:47 Hyaline Casts 0.81 /lpf 02/08/25 10:47 Salicylates < 0.3 mg/dL (3-10) L 02/08/25 10:39 Urine Opiates Screen Negative ng/mL (Negative) 02/08/25 10:47 Acetaminophen 18.6 ug/mL (10-30) 02/08/25 10:39 Ur Barbiturates Screen Negative ng/mL (Negative) 02/08/25 10:47 Ur Phencyclidine Scrn Negative ng/mL (Negative) 02/08/25 10:47 Ur Amphetamines Screen Positive ng/mL (Negative) H 02/08/25 10:47 U Benzodiazepines Scrn Negative ng/mL (Negative) 02/08/25 10:47 Urine Cocaine Screen Negative ng/mL (Negative) 02/08/25 10:47 U Marijuana (THC) Screen Positive ng/mL (Negative) H 02/08/25 10:47 Ethyl Alcohol < 10 mg/dL (0-10) 02/08/25 10:39 No radiology studies performed this visit Discharge Plan Discharge Patient Disposition: Admitted As Inpatient Clinical Impression: Suicidal ideation, Agitation, Acute anxiety, Urinary tract infection Condition: Stable Coding Level of Care Code 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
--- OUTSIDE RECORDS SUMMARY | 2025-02-08 10:32 | XMS_ITS | Continuity of Care Document ---
Author Organization [facility], Kaleb, [facility] ([facility]) Address [address] [place] [address] Assessment No assessment recorded. Plan of Treatment Reminders Order Date Submit Date Provider Last Modified By Organization Details Last Modified Time Details Appointments None recorded. Lab None recorded. Referral None recorded. Procedures None recorded. Surgeries None recorded. Imaging None recorded. Medication Orders docusate sodium 100 mg capsule 2024 025 [facility]/Pharmacy #[id number], [address], [address], 16:57:58 magnesium citrate oral solution 2024 025 [facility]/Pharmacy #[id number], [address], [address], 16:57:58 Patient TargetsNo targets recorded. Patient InstructionsNo instructions recorded. Reason for Referral None Reported. Problems Name Problem SNOMED Code Status Onset Date Resolution Date Notes Provider Name and Address Organization Details Recorded Time Endometri al ablation Completed 201404/30/2024 Endometri al Ablation; 02/2012; 5 10:41AM by Dyana Brown RN, Office Visit; Promoted; acuity set as *; [facility] 16:37:50 Stimulant use disorder Active 2024 [facility]im [facility] 23:02:39 Dental caries 70273463 Active 2024 NATY xiao [facility], [place] 5 23:03:01 History of homeless Active 2024 NATY xiao [facility], [place] 5 23:05:27 Generaliz ed anxiety disorder 55440681 Active 2024 NATY xiao [facility], [place] 5 23:16:26 Disturban ce in mood 78774282 Active 2024 ANTY JANIYA dameon [facility], [place] 5 23:16:56 Bipolar disorder 50231934 Active 2024 NATY xiao [facility], [place] 5 23:17:17 Problem Notes None recorded. Procedures Surgical History Date Name Laterality Status Provider Name and Address Organization Details Recorded Time 05/12/19 CT of wrist completed BEAVERTON JANIYA [facility], [facility] 09/12/2024 23:01:00 partial hysterectomy completed [facility]ASSAN [facility] 04/30/2024 16:38:26 endometrial ablation completed [facility], DebbieCMerna 05/20/2024 11:59:06 [facility]20[facility] 11:59:31 Imaging Results None recorded. Procedure [...] Not Available docusate sodium 100 mg capsule TAKE 1 CAPSULE BY MOUTH EVERY DAY active Not Available Not Available No t Available magnesium citrate oral solution Take 300 mL [...] jess glycol 3350 17 gram/dose oral powder TAKE 17 G EVERY DAY BY ORAL ROUTE FOR 90 DAYS. active Not Available Not Available No t Available naproxen 500 mg tablet TAKE ONE TABLET BY MOUTH TWICE DAILY NEEDED FOR PAIN 04/30 completed Not Available Not Available Not Available cyclobenz aprine 5 mg tablet TAKE ONE TABLET BY MOUTH TWICE DAILY 05/20 completed Not Available Not Available Not Available ibuprofen three times daily, as needed 05/20 completed Recorded 06/15/19 15 11:22AM by Rich Villafuerte, , Office Visit; Refill Quantity : 0; Not Available Not Available Not Available Vitals Date Recorded Body height Body mass index (BMI) Body weight Oxygen saturation Heart rate Respiratory rate Body temperature Systolic And Diastolic Provider Name and Address Organization Details Last Updated DateTime 5 160.02 cm 22.3 kg/m2 13684.6 4 g 98 % 86 /min 16 /min 98.2 [degF] 112/66 mm[Hg] Aleja Jaffe [facility] 5 16:53:35 Social History Question Answer Notes LastModified by Organizat ion Details LastModified Time Tobacco Smoking Status Current Every Day Smoker YENIFER xiao [facility], [place] 04/30/2024 16:38:11 What Is Your Level Of Caffeine Consumption? Moderate [email or web address] Information not available 05/20/2024 What Was The Date Of Your Most Recent Tobacco Screening? 01/10/2025 [email or web address] Information not available 01/10/2025 What Is Your Relationship Status? Single [email or web address] Information not available 05/20/2024 Have You Used IV Drugs? No Information not available 05/20/2024 Sex: Unknown Functional Status Question Answer Note LastModified by Organizat ion Details LastModified Time Do you use any illicit or recreational drugs? Yes Marijuana daily [email or web address] Information not available 05/20/2024 What is your level of alcohol consumption? Moderate [email or web address] Information not available 05/20/2024 Are you currently employed? No [email or web address] Information not available 05/20/2024 Are you able to walk independently without assistance or assistive devices? YESWOREST [email or web address] Information not available 05/20/2024 Are you able to care for yourself independently? Yes [email or web address] Information not available 05/20/2024 Mental Status None recorded. Family History Relationship Description Onset Age of this Age Resolved Age Notes LastModified by Organization Details LastModified Time Father No current problems or disability [email or web address] Not available 05/08 11:55:32 Mother No current problems or disability [email or web address] Not available 05/08 11:55:33 Medical History No medical history recorded. Gynecological HistoryNo gynecological history recorded. Obstetrics History GPAL:G 0 P 0 0 0 0 Immunizations Vaccine Type Date Status Note Provider Nam e and Address Organization Details Recorded Time Td(adult) unspecified formulation 5 completed Not Available [facility] 10/05/2022 02:47:14 Tdap 5 completed Not Available [facility] 01/10/2025 16:43:36 Past Encounters Encounter ID Performer Location Encounter Start Date Encounter Closed Date Diagnosis/Indication Diagnosis SNOMED-CT Code Diagnosis ICD10 Code Diagnosis IMO Codes Diagnosis Note [id number] SOFY DRISCOLL [facility] ([facility]) [address] [id number] 01/10/2025 16:43:10 01/10/2025 17:20:19 Acute constipation 388544235 K59.00 [id number] Patient presents with constipati on. Recommend increasing [...] Member ID Ledezma Member ID Guarantor Name 01/10/2025 1 [facility] (MEDICAID HMO) Bree Winston [id number] Bree Winston Notes Date Note Type Note Provider Name and Address Organization Details Recorded Time 5 text/html ConstipationReported by PatientROS as noted in the HPI walk in patientpatient is here today for constipation, patient said that she was in halfway for 2 weeks and she can not have bowel movements when in Intermediate. Patient states that she has had small pellet like stools. SUDHA AGUILERA, SOFY [address] [place], [address], CEFERINO [facility] Hernandez 01/10/2025 16:59:09 OBGyn Episode No OBEpisode recorded.
--- OUTSIDE RECORDS SUMMARY | 2025-02-08 10:32 | XMS_ITS | Clinical Summary ---
Author Organization [facility] Address [address] [place] [address] Phone Care Team Providers Care Sample Taker Operator Name Role Phone Nolan Soto MD Primary Care Provider [phone] Allergies No known active allergies Medications HYDROcodone-miguel [...] CDT 5 Active naloxone (NARCAN) 4 mg/spray [place], Non-Aerosol EMERGENCY USE ONLY: Administer 1 spray (4 mg) in one nostril one time. May repeat in alternating nostrils every 2-3 min until responsive or EMS arrives. 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 [employer] Gender Identity Not on file Sexual Orientation [...] cm (5' 3 ) 05/12/2024 2:36 AM CONTROL PANEL OPERATOR [facility] [employer] Body Mass Index 22.85 05/12/2024 2:36 AM CONTROL 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 OPERATOR [facility] [employer] Plan of Treatment Health Maintenance Due Date Last Done Comments HEPATITIS B VACCINES (1 of 3 - 19+ 3-dose series) 09/19/1999 HPV/Cotest (21-29) 2001 HPV VACCINES (1 - 3-dose SCDM series) 09/19/2007 CERVICAL CANCER SCREENING 2010 HPV/Cotest (30-65) 2010 PAP SMEAR 2010 BREAST CANCER SCREENING 2020 INFLUENZA VACCINE (#1) 2024 DTAP/TDAP/TD VACCINES (2 - Td or Tdap) 05/12/2034, 06/14/2014 Insurance [employer] MED[employer] RX INFOCROSSING Medicaid Advance Directives For more information, please contact: [phone] * Full Code (Latest Code Status on File) Date Activated Date Inactivated Comments 05/12/2024 2:49 AM 05/16/2024 3:46 PM Care Teams Sample Taker Operator Relationship Specialty Start Date End Date Nolan Soto MD [address] [facility] [address] [place] [id number] PCP - General Family Practice 05/12/24
--- OUTSIDE RECORDS SUMMARY | 2025-02-08 10:32 | XMS_ITS | Data Portability ---
Author Organization [place] - Jose Angel Limon [facility] Kaleb Hernandez [facility] Address [address] [place] [address] Assessment Encounter Date Assessment Date Assessment LastModified [...] docusate sodium 100 mg capsule 2024 025 [facility]/Pharmacy #[id number], [address] [facility] [address], [address], 16:57:58 magnesium citrate oral solution 2024 025 [facility]/Pharmacy #[id number], [address] [facility] [address], [place], [address], 16:57:58 betamethaso ne acetate and sodium phos 6 mg/mL suspension for injection 2024 025 [email or web address] Not available 11:29:30 ibuprofen 600 mg tablet 2024 025 [facility]/Pharmacy #[id number], [address] [facility] [address], [place], [address], 5 16:51:55 Patient TargetsNo targets recorded. Patient Instructions Encounter Date Encounter Id Patient Instructions Last Modified By Organization Details Last Modified Time 05/20/2024 [id number] Call or return for questions or concerns. Not available 05/30/2024 21:31:24 Reason for Referral None Reported. Problems Name Problem SNOMED Code Status Onset Date Resolution Date Notes Provider Name and Address Organization Details Recorded Time Endometri al ablation Completed 201404/30/2024 Endometri al Ablation; 02/2012; 5 10:41AM by Dyana Brown RN, Office Visit; Promoted; acuity set as *; YENIFER xiao [facility], Mraiza.L.CMerna 5 16:37:50 Stimulant use disorder Active 2024 Methamphe tamine NATY xiao [facility], Mariza.L.CMerna 5 23:02:39 Dental caries 79124286 Active 2024 NATY xiao [facility], L.L.CMerna 5 23:03:01 History of homeless Active 2024 NATY xiao [facility], CesiaL.CMerna 5 23:05:27 Generaliz ed anxiety disorder 23825940 Active 2024 NATY xiao [facility], L.L.CMerna 5 23:16:26 Disturban ce in mood 79538899 Active 2024 NATY xiao [facility], Mariza.L.CMerna 5 23:16:56 Bipolar disorder 00780009 Active 2024 NATY xiao [facility], CesiaLMernaCMerna 5 23:17:17 Problem Notes None recorded. Procedures Surgical History Date Name Laterality Status Provider Name and Address Organization Details Recorded Time 05/12/[address] [facility]/12/2024 23:01:00 partial hysterectomy completed YENIFERPATRICIA MU[facility]IZY [facility] 04/30/2024 16:38:26 endometrial ablation [facility] 05/20/2024 11:59:06 [facility] 11:59:31 Imaging Results None recorded. Procedure [...] (BMI) Body height Respiratory rate Oxygen saturation Heart rate Body temperature Systolic And Diastolic Provider Name and Address Organization Details Last Updated DateTime 5 00708.0 1 g 23 kg/m2 160.02 cm 16 /min 98 % 85 /min 98.2 [degF] 136/94 mm[Hg] YENIFER HASSAN [facility] 5 16:42:15 Date Recorded Body height Body mass index (BMI) Body weight Oxygen saturation Heart rate Respiratory rate Systolic And Diastolic Provider Name and Address Organization Details Last Updated DateTime 5 160.02 cm 23 kg/m2 80708.0 1 g 96 % 90 /min 20 /min 104/62 mm[Hg] NATY DENSON [facility] 5 11:52:38 Date Recorded Body height Body mass index (BMI) Body weight Oxygen saturation Heart rate Respiratory rate Body temperature Systolic And Diastolic Provider Name and Address Organization Details Last Updated DateTime 5 160.02 cm 22.3 kg/m2 14237.6 4 g 98 % 86 /min 16 /min 98.2 [degF] 112/66 mm[Hg] Aleja Rangelzoran [facility] 5 16:53:35 Date Recorded Body height Body mass index (BMI) Body weight Respiratory rate Oxygen saturation Heart rate Body temperature Systolic And Diastolic Provider Name and Address Organization Details Last Updated DateTime 5 160.02 cm 22.5 kg/m2 60328.2 3 g 18 /min 99 % 64 /min 97.9 [degF] 118/70 mm[Hg] TYREE DAY [facility] 15:11:27 Social History Question Answer Notes LastModified by Organizat ion Details LastModified Time Tobacco Smoking Status Current Every Day Smoker YENIFER SONYA dameon [facility] 04/30/2024 16:38:11 What Is Your Level Of Caffeine Consumption? Moderate Information not available 05/20/2024 What Was The Date Of Your Most Recent Tobacco Screening? 01/10/2025 [email or web address] Information not available 01/10/2025 What Is Your Relationship Status? Single [email or web address] Information not available 05/20/2024 Have You Used IV Drugs? No [email or web address] Information not available 05/20/2024 Sex: Unknown Functional Status Question Answer Note LastModified by Organizat ion Details LastModified Time Do you use any illicit or recreational drugs? Yes Marijuana daily Information not available 05/20/2024 What is your level of alcohol consumption? Moderate [email or web address] Information not available 05/20/2024 Are you currently employed? No [email or web address] Information not available 05/20/2024 Are you able to walk independently without assistance or assistive devices? YESWOREST [email or web address] Information not available 05/20/2024 Are you able to care for yourself independently? Yes [email or web address] Information not available 05/20/2024 Mental Status None recorded. Family History Relationship Description Onset Age of this Age Resolved Age Notes LastModified by Organization Details LastModified Time Father No current problems or disability [email or web address] Not available 05/08 11:55:32 Mother No current problems or disability [email or web address] Not available 05/08 11:55:33 Medical History No medical history recorded. Gynecological HistoryNo gynecological history recorded. Obstetrics History GPAL:G 0 P 0 0 0 0 Immunizations Vaccine Type Date Status Note Provider Nam e and Address Organization Details Recorded Time Td(adult) unspecified formulation 5 completed Not Available [facility] 10/05/2022 02:47:14 Tdap 5 completed Not Available [facility] 01/10/2025 16:43:36 Past Encounters Encounter ID Performer Location Encounter Start Date Encounter Closed Date Diagnosis/Indication Diagnosis SNOMED-CT Code Diagnosis ICD10 Code Diagnosis IMO Codes Diagnosis Note [id number] SUDHA AGUILERA LEGAL EXAMINER [facility] ([facility]) [address] [place] [phone] 04/30/2024 16:30:06 04/30/2024 17:53:47 Low back pain 304646156 M54.50 RTC with any new or worsening symptoms. [id number] STEPHANIE GARCIA [facility] ([facility]) [address] [place] [phone] 05/20/2024 11:32:16 05/20/2024 12:30:16 Abscess of skin of left wrist 2308112800 [id number] L02.414 Follow-up with surgeon on Friday. [id number] SUDHA AGUILERA [facility] ([facility]) [address] [place] [address] 01/10/2025 16:43:10 01/10/2025 17:20:19 Acute constipation 439664355 K59.00 [id number] Patient presents with constipati on. Recommend increasing oral fluids with non-caffei nated beverages. Increase daily dietary fiber. Tylenol may be used as needed for cramping. RTC with any new or worsening symptoms. [id number] SUDHA AGUILERA LEGAL EXAMINER [facility] ([facility]) [address] [place] [address] 01/15/2025 15:00:51 01/15/2025 15:53:55 Pain in bilateral legs [id number] 3990571 M79.604 M79.605 [id number] Will apply Randy wraps for comfort. May [...] ID Ledezma Member ID Guarantor Name 01/17/2025 [facility] (MEDICAID HMO) Bree Dawkins [place] [id number] Bree Dawkins [place] 01/15/2025 1 [facility] (MEDICAID HMO) Bree Dawkins [place] [id number] Bree Dawkins [place] Notes Date Note Type [...] Ibuprofen and that gave her some relief. SOFY DRISCOLL [address] [place] [address], [phone], [facility] 04/30/2024 17:50:11 05/21/19 25 text/htm l Skin LesionReported by PatientHPIFor location, patient reportswrist. For quality, patient reportstenderandsore. For severity, patient reportsmoderate. For timing, patient reportsabrupt. For context, patient reportsinfection. For associated symptoms, patient reportsno fever. For alleviating factors, (surgical drainage of abscess and iv antibiotics). STEPHANIE GARCIA [address], [address], [facility] 05/30/2024 21:32:54 01/11/20 25 text/htm l ConstipationReported by PatientROS as noted in the HPI walk in patientpatient is here today for constipation, patient said that she was in intermediate for 2 weeks and she can not have bowel movements when in [facility]. Patient states that she has had small pellet like stools. SOFY DRISCOLL [address] [place] [address], [phone], [facility], L.LMernaC. 01/10/2025 16:59:09 01/16/20 25 text/htm l ROS [...] sole for leg toning. SOFY DRISCOLL [address] [place], [address], [facility], LMernaLMernaC. 01/15/2025 15:41:18 OBGyn Episode No OBEpisode recorded.
--- OUTSIDE RECORDS SUMMARY | 2025-02-08 10:32 | XMS_ITS | Continuity of Care Document ---
Author Organization [facility], Kaleb, [facility] ([facility]) Address [address] [place] [address] Assessment No assessment recorded. Plan of Treatment [...] acuity set as *; YENIFER SONYA xiao [facility], L.L.CMerna 5 16:37:50 Stimulant use disorder Active 2024 Methamphe tamine NATY xiao [facility], L.L.CMerna 5 23:02:39 Dental caries 81227978 Active 2024 NATY xiao [facility], Mariza.LMernaCMerna 5 23:03:01 History of homeless Active 2024 NATY xiao [facility], CesiaLMernaCMerna 5 23:05:27 Generaliz ed anxiety disorder 77726311 Active 2024 NATY xiao [facility], L.LMernaCMerna 5 23:16:26 Disturban ce in mood 03159119 Active 2024 NATY xiao [facility], Kaleb 5 23:16:56 Bipolar disorder 59359296 Active 2024 NATY xiao [facility], Kaleb 5 23:17:17 Problem Notes None recorded. Procedures Surgical History Date Name Laterality Status Provider Name and Address Organization Details Recorded Time 05/12/19 CT of wrist completed NATYDAX DENSON [facility], Kaleb 09/12/2024 23:01:00 partial hysterectomy completed YENIFER HASSAN [facility], Kaleb 04/30/2024 16:38:26 endometrial ablation completed NATY JANIYA [facility], [place] 05/20/2024 11:59:06 ligation of fallopian tube completed NAT[facility]DAX DENSON [facility] 05/20/2024 11:59:31 Imaging Results None recorded. Procedure [...] Last Updated DateTime 160.02 cm 22.5 kg/m2 09609.2 3 g 18 /min 99 % 64 /min 97.9 [degF] 118/70 mm[Hg] TYREE DAY [facility] 15:11:27 Social History Question Answer Notes LastModified by Organizat ion Details LastModified Time Tobacco Smoking Status Current Every Day Smoker YENIFER xiao [facility] 04/30/2024 16:38:11 What Is Your Level Of Caffeine Consumption? Moderate [email or web address] Information not available 05/20/2024 What Was The Date Of Your Most Recent Tobacco Screening? 01/10/2025 [email or web address] Information not available 01/10/2025 What Is Your Relationship Status? Single [email or web address] Information not available 05/20/2024 Have You Used IV Drugs? No [email or web address] Information not available 05/20/2024 Sex: Unknown Functional Status Question Answer Note LastModified by Organizat ion Details LastModified Time Do you use any illicit or recreational drugs? Yes Marijuana daily [email or web address] Information not available 05/20/2024 What is your level of alcohol consumption? Moderate [email or web address] Information not available 05/20/2024 Are you currently employed? No [email or web address] Information not available 05/20/2024 Are you able to walk independently without assistance or assistive devices? YESWOREST Information not available 05/20/2024 Are you able to care for yourself independently? Yes Information not available 05/20/2024 Mental Status None recorded. Family History Relationship Description Onset Age of this Age Resolved Age Notes LastModified by Organization Details LastModified Time Father No current problems or disability [email or web address] Not available 05/08 11:55:32 Mother No current problems or disability [email or web address] Not available 05/08 11:55:33 Medical History No medical history recorded. Gynecological HistoryNo gynecological history recorded. Obstetrics History GPAL:G 0 P 0 0 0 0 Immunizations Vaccine Type Date Status Note Provider Nam e and Address Organization Details Recorded Time Td(adult) unspecified formulation 5 completed Not Available [facility] 10/05/2022 02:47:14 Tdap 5 completed Not Available [facility] 01/10/2025 16:43:36 Past Encounters Encounter ID Performer Location Encounter Start Date Encounter Closed Date Diagnosis/Indication Diagnosis SNOMED-CT Code Diagnosis ICD10 Code Diagnosis IMO Codes Diagnosis Note [id number] SOFY DRISCOLL [facility] ([facility]) [address] [place] [address] 01/10/2025 16:43:10 01/10/2025 17:20:19 Acute constipation 925910674 K59.00 [id number] Patient presents with constipati on. Recommend increasing oral fluids with non-caffei nated beverages. Increase daily dietary fiber. Tylenol may be used as needed for cramping. RTC with any new or worsening symptoms. [id number] SOFY DRISCOLL [facility] ([facility]) [address] [place] [address] 01/15/2025 15:00:51 01/15/2025 15:53:55 Pain in bilateral legs [id number] M79.604 M79.605 [id number] Will apply Randy wraps for comfort. May [...] Ledezma Member ID Guarantor Name 01/15/2025 1 [facility] (MEDICAID HMO) Bree Winston [id number] Bree Winston Notes Date Note Type Note [...] had a rocker sole for leg toning. SUDHA AGUILERA, DOG BATHER [address] [place], [address], [facility] 01/15/2025 15:41:18 OBGyn Episode No OBEpisode recorded.
[2025-02-08 10:46] LABS: Hematocrit 40.6 % (36-47); Hemoglobin 12.80 g/dL (11.27-16.99); Mean Corpuscular HGB Conc 31.5 g/dL (30-55); Mean Corpuscular Hemoglobin 29.3 pg (27-33); Mean Corpuscular Volume 92.9 fl (85-98); Nucleated Red Blood Cells % 0 %; Platelet Count 241 10^3/cmm (157-399); Red Blood Count 4.37 10^6/uL (3.85-5.65); White Blood Count 6.78 10^3/uL (3.29-11.43)
--- NOTE | 2025-02-08 10:49 | PC.NURSE ---
read 96 HH rights to pt with ALISA, sap security consultant. pt verbalized understanding and has no further questions. provided copy of rights in belongings per pt preference.
--- NOTE | 2025-02-08 10:52 | ECG_ITS ---
[employer] SMART Test Date: 2025-02-08 Pat Name: Bree Winston Department: Room: Gender: Female Heel Seat Laster: : 1980 Requested By: Marilyn Dawkins Order Number: [id number] Jacob MD: Richard Coronel M.D. Measurements Intervals [place] Rate: 66 P: 80 KS: 152 QRS: 78 QRSD: 80 T: 59 QT: 374 QTc: 393 Interpretive Statements SINUS RHYTHM WITH SINUS ARRHYTHMIA POSSIBLE LEFT ATRIAL ENLARGEMENT [-0.1mV P-WAVE IN V1/V2] Compared to ECG 12/26/2023 00:51:44 No significant changes Electronically Signed On 02-08-2025 18:59:21 DIRECTOR OF PROGRAMMING by Richard Coronel M.D. [email or web address]
[2025-02-08 10:59] LABS: Glucose Urine UA Negative (Normal); Nitrate Urine Negative (Negative); Specific Gravity, Urine 1.027 (1.005-1.030)
[2025-02-08 11:02] LABS: Add Urine Microscopic? YES
[2025-02-08 11:09] LABS: HCG Qualitative Urine. Negative (Negative)
[2025-02-08 11:12] LABS: PCP Screen Urine Negative (Negative)
[2025-02-08 11:17] LABS: Acetaminophen 18.6 ug/mL (10-30); Alanine Aminotransferase 25 U/L (0-33); Albumin Level 3.6 g/dL (3.5-5.2); Alkaline Phosphatase 65 U/L (35-105); Anion Gap 12.7 (5-19); Aspartate Amino Transferase 25 U/L (0-32); Blood Urea Nitrogen 13 mg/dL (6-20); Calcium 8.1 mg/dL (8.5-10.5); Carbon Dioxide 27 mmol/L (22-29); Chloride 104 mmol/L (98-107); Creatinine Clr Calc Pharmacy 149.9434; Globulin 2.7 g/dL (1.3-4.6); Glucose 79 mg/dL (65-115); Osmolality Calculated 289 mOsm/kg (285-295); Potassium 3.7 mmol/L (3.5-5.1); Sodium 140 mmol/L (136-145); Thyroid Stimulating Hormone 0.30 uIU/mL (0.27-4.20); Total Protein 6.3 g/dL (6.6-8.7)
[2025-02-08 11:19] LABS: Alcohol Level < 10 mg/dL (0-10); Salicylate < 0.3 mg/dL (3-10)
[2025-02-08 12:22] VITALS: BP 123/77; PULSE 68; RESP 16; TEMP 36.5; O2SAT 100
--- NOTE | 2025-02-08 12:26 | PC.NURSE ---
medications reconciled.
--- NOTE | 2025-02-08 13:34 | PC.NURSE ---
Pt. was in the ER placed on a 96 hr hold. Pt. stated she is overwhelmed with stress is what has brought her here today. Pt. has court on the . Pt. was suppose to check herself into a sober living facility, but has not done so. Pt. tested positive for meth and THC. Pt. says she is staying on different friends couches and that she will then go to a sober living facility. Pt. had a syringe/needle wrapped up in a napkin in her belongings, some marijuana, and a bottle of mixed unknown pills. While changing pt. out. WINDSHIELD WIPER REPAIRER ask if pt. had any pins or metal clips in her hair and pt. then started yelling and ripped the fake hair out of her head and yelled God forbid someone look attractive in here. Signee asked pt. to not get an attitude about it and pt. then said what is the matter do you have a problem with my tone. and took her hands and lifted her eyebrows with her hands.
[2025-02-08 13:53] VITALS: BP 120/61; PULSE 74; RESP 16; TEMP 36.5; O2SAT 100
[2025-02-08 20:10] VITALS: BP 103/66; PULSE 86; RESP 16; TEMP 36.7; O2SAT 98
[2025-02-09 06:00] VITALS: BP 109/68; PULSE 81; RESP 16; TEMP 36.7; O2SAT 99
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
[2025-02-09 14:00] VITALS: BP 122/68; PULSE 90; RESP 16; TEMP 36.8; O2SAT 99
[2025-02-09 20:07] VITALS: BP 93/56; PULSE 82; RESP 16; TEMP 36.7; O2SAT 99
--- NOTE | 2025-02-09 21:54 | PC.NURSE ---
Removed Nicotine patch at 2100
[2025-02-10 06:00] VITALS: BP 117/68; PULSE 75; RESP 16; TEMP 36.6; O2SAT 97
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
--- NOTE | 2025-02-10 12:03 | P.NPUPN_ITS ---
Subjective NPU 2 Subjective: Patient presented today reporting that she is doing okay. She reports that she is tolerating the Neurontin currently without incident. She was less isolative and more in the treatment milieux per staff reports and direct observation. She reports commitment to following through with rehab and getting her life back on track. She denied any side effects to the medication. Mental Status Exam 2 MSE Comments: This is a well-nourished well-developed slender white female in hospital scrubs with adequate grooming and eye contact.? No abnormal movements except for mild psychomotor retardation.? Cooperative with exam in mild to moderate distress.? Speech was slightly decreased rate and volume.? Mood described as maybe a little better, affect congruent and slightly less subdued.? Thought process linear.? Thought content: Patient denied suicidal or homicidal ideation, there were no delusions reported or noted, she denied auditory or visual hallucinations. No lethal aggression but patient and staff from the crisis center identify her having irritability and aggression that create challenges for her in her regular daily activities. She denies any hallucinations or paranoid thoughts. She reports no self-injurious behavior or significant compulsive behaviors. Attention and concentration were adequate and memory appeared mostly reliable but none were formally tested.? She is alert and oriented x 3.? Insight, judgment and impulse control are limited versus impaired. Vitals/I&O/Wt Last Vital Signs Temp 97.8 F 02/10/25 06:00 Pulse 75 02/10/25 06:00 Resp 16 02/10/25 06:00 BP 117/68 02/10/25 06:00 Pulse Ox 97 02/10/25 06:00 O2 Del Method Room Air 02/10/25 06:00 Data NPU 02/08/25 10:39 02/08/25 10:39 Micro: Microbiology 02/08/25 10:47 Urine Culture - Final Urine,Clean Catch Microbiology 02/08/25 10:47 Urine,Clean Catch Urine Culture - Final A&P Assessment and plan 1. Bipolar disorder: 2. Suicidal ideation: 3. Homeless: 4. Methamphetamine use disorder, moderate, dependence: 5. Cannabis use disorder: Plan: This is a 44-year-old white female with a history of mental health and addiction issues as well as active mental health and addiction issues who presents like she did a little over a year ago with active addiction issues on a 96-hour hold The patient is currently experiencing substantial psychosocial stressors, including joblessness, physical health issues, and housing instability, and stressors with her family especially her father which are contributing to experiencing emotional distress. 1.? Continue current medication. Will explore possible psychiatric medications for mental health issues and possible cravings. Started Neurontin 100 mg p.o. 3 times daily then titrate to effect and likely consider naltrexone, BuSpar or other medications as indicated 2.? Continue every 15 minute checks for safety. 3.? Encourage individual, group and milieu therapies. 4. Encourage sober living treatment after discharge at the highest level care to which she is willing to commit. Plan for discharge to rehab on Friday evening versus Friday straight to the facility. 5. Get collateral information. 6. Observe against the backdrop of the 96-hour hold. PDMP PDMP Reviewed: Not Reviewed Involuntary Hold Information 2 Hold Status: Legal Status: 96 Hour Hold Date/Time Hold Expires: 02/14/25 @ 1030 96 Hour Hold: 96 Hour Involuntary Admission: Yes Other Hold: Hold End Date: 01/01/24 Attestations NPU 2 Medical Necessity Statement*: Inpatient hospitalization is medically necessary and the clinically appropriate intervention at this time. We will monitor medication to make changes as indicated. Likely length of stay 3 -6 days. Coding Level of Care Code Acute Code for [facility] Fwd Diagnoses Bipolar disorder F31.9 Active/Remission status: remission status unspecified Suicidal ideation R45.851 Homeless Z59.00 Methamphetamine use disorder, moderate, dependence F15.20 Cannabis use disorder F12.90
[2025-02-10 14:00] VITALS: BP 95/56; PULSE 87; RESP 17; TEMP 36.7; O2SAT 92
[2025-02-10 20:53] VITALS: BP 112/66; PULSE 77; RESP 16; TEMP 36.7; O2SAT 99
[2025-02-11 05:40] VITALS: BP 96/57; PULSE 108; RESP 17; TEMP 36.7; O2SAT 90
--- NOTE | 2025-02-11 13:08 | P.NPUPN_ITS ---
Subjective NPU 2 Subjective: Patient presented today reporting that she is feeling more optimistic about the process as we start medications to assist with her symptoms and she is getting focused on going to rehab in 4 days. She endorses knowing this is the past she needs to take and she is happy about having the opportunity. She denied any side effects to the medication. Mental Status Exam 2 MSE Comments: This is a well-nourished well-developed slender white female in hospital scrubs with adequate grooming and eye contact.? No abnormal movements except for mild psychomotor retardation.? Cooperative with exam in mild to moderate distress.? Speech was slightly decreased rate and volume.? Mood described as maybe a little better, affect congruent and slightly less subdued.? Thought process linear.? Thought content: Patient denied suicidal or homicidal ideation, there were no delusions reported or noted, she denied auditory or visual hallucinations. No lethal aggression but patient and staff from the crisis center identify her having irritability and aggression that create challenges for her in her regular daily activities. She denies any hallucinations or paranoid thoughts. She reports no self-injurious behavior or significant compulsive behaviors. Attention and concentration were adequate and memory appeared mostly reliable but none were formally tested.? She is alert and oriented x 3.? Insight, judgment and impulse control are limited versus impaired. Vitals/I&O/Wt Last Vital Signs Temp 98.0 F 02/11/25 05:40 Pulse 108 H 02/11/25 05:40 Resp 17 02/11/25 05:40 BP 96/57 02/11/25 05:40 Pulse Ox 90 02/11/25 05:40 O2 Del Method Room Air 02/11/25 05:40 Data NPU 02/08/25 10:39 02/08/25 10:39 Micro: Microbiology 02/08/25 10:47 Urine Culture - Final Urine,Clean Catch Microbiology 02/08/25 10:47 Urine,Clean Catch Urine Culture - Final A&P Assessment and plan 1. Bipolar disorder: 2. Suicidal ideation: 3. Homeless: 4. Methamphetamine use disorder, moderate, dependence: 5. Cannabis use disorder: Plan: This is a 44-year-old white female with a history of mental health and addiction issues as well as active mental health and addiction issues who presents like she did a little over a year ago with active addiction issues on a 96-hour hold The patient is currently experiencing substantial psychosocial stressors, including joblessness, physical health issues, and housing instability, and stressors with her family especially her father which are contributing to experiencing emotional distress. 1.? Continue current medication. Will explore possible psychiatric medications for mental health issues and possible cravings. Started Neurontin 100 mg p.o. 3 times daily then titrate to effect and likely consider naltrexone, BuSpar or other medications as indicated 2.? Continue every 15 minute checks for safety. 3.? Encourage individual, group and milieu therapies. 4. Encourage sober living treatment after discharge at the highest level care to which she is willing to commit. Plan for discharge to rehab on Friday evening versus Friday straight to the facility. 5. Get collateral information. 6. Observe against the backdrop of the 96-hour hold. PDMP PDMP Reviewed: Not Reviewed Involuntary Hold Information 2 Hold Status: Legal Status: 96 Hour Hold Date/Time Hold Expires: 02/14/25 @ 1030 96 Hour Hold: 96 Hour Involuntary Admission: Yes Other Hold: Hold End Date: 01/01/24 Attestations NPU 2 Medical Necessity Statement*: Inpatient hospitalization is medically necessary and the clinically appropriate intervention at this time. We will monitor medication to make changes as indicated. Likely length of stay 4 days. Coding Level of Care Code Acute Code for [facility] Fwd Diagnoses Bipolar disorder F31.9 Active/Remission status: remission status unspecified Suicidal ideation R45.851 Homeless Z59.00 Methamphetamine use disorder, moderate, dependence F15.20 Cannabis use disorder F12.90
[2025-02-11 14:00] VITALS: BP 104/60; PULSE 125; RESP 18; TEMP 36.8; O2SAT 98
[2025-02-11] MEDS: polyethylene glycol 3350 Pkt 17 gm PO (15:38)
[2025-02-11 20:41] VITALS: BP 93/61; PULSE 101; RESP 16; TEMP 36.4; O2SAT 98
[2025-02-12 06:00] VITALS: BP 108/69; PULSE 85; RESP 16; TEMP 36.5; O2SAT 98
--- NOTE | 2025-02-12 12:53 | W.PM.NPUPNS ---
Subjective NPU Subjective: Patient presented today reporting that she is doing all right. We discussed her pain to some degree and identified a plan to see if the use of lidocaine patches might ameliorate some of the issue and avoid any pain medication especially given her plan to go to rehab and 3 days. Otherwise she denied any side effects of medication. Mental Status Exam MSE Comments: This is a well-nourished well-developed slender white female in hospital scrubs with adequate grooming and eye contact.? No abnormal movements except for mild psychomotor retardation.? Cooperative with exam in mild to moderate distress.? Speech was slightly decreased rate and volume.? Mood described as a little better, affect congruent and slightly less subdued.? Thought process linear.? Thought content: Patient denied suicidal or homicidal ideation, there were no delusions reported or noted, she denied auditory or visual hallucinations. No lethal aggression but patient and staff from the crisis center identify her having irritability and aggression that create challenges for her in her regular daily activities. She denies any hallucinations or paranoid thoughts. She reports no self-injurious behavior or significant compulsive behaviors. Attention and concentration were adequate and memory appeared mostly reliable but none were formally tested.? She is alert and oriented x 3.? Insight, judgment and impulse control are limited versus impaired. Vitals/I&O/Wt Last Vital Signs Temp 97.7 F 02/12/25 06:00 Pulse 85 02/12/25 06:00 Resp 16 02/12/25 06:00 BP 108/69 02/12/25 06:00 Pulse Ox 98 02/12/25 06:00 O2 Del Method Room Air 02/12/25 06:00 Data NPU 02/08/25 10:39 02/08/25 10:39 A&P Assessment and plan 1. Bipolar disorder: 2. Suicidal ideation: 3. Homeless: 4. Methamphetamine use disorder, moderate, dependence: 5. Cannabis use disorder: Plan: This is a 44-year-old white female with a history of mental health and addiction issues as well as active mental health and addiction issues who presents like she did a little over a year ago with active addiction issues on a 96-hour hold The patient is currently experiencing substantial psychosocial stressors, including joblessness, physical health issues, and housing instability, and stressors with her family especially her father which are contributing to experiencing emotional distress. 1.? Continue current medication. Will explore possible psychiatric medications for mental health issues and possible cravings. Started Neurontin 100 mg p.o. 3 times daily then titrate to effect and likely consider naltrexone, BuSpar or other medications as indicated. We discussed lidocaine patches for her pain instead of proposed pain medication. 2.? Continue every 15 minute checks for safety. 3.? Encourage individual, group and milieu therapies. 4. Encourage sober living treatment after discharge at the highest level care to which she is willing to commit. Plan for discharge to rehab on Friday evening versus Friday straight to the facility. 5. Get collateral information. 6. Observe against the backdrop of the 96-hour hold. PDMP PDMP Reviewed: Not Reviewed Involuntary Hold Information Hold Status: Legal Status: 96 Hour Hold Date/Time Hold Expires: 02/14/25 @ 1030 96 Hour Hold: 96 Hour Involuntary Admission: Yes Other Hold: Hold End Date: 01/01/24 Attestations NPU Medical Necessity Statement*: Inpatient hospitalization is medically necessary and the clinically appropriate intervention at this time. We will monitor medication to make changes as indicated. Likely length of stay 3 days. Coding Level of Care Code Acute Code for [facility] Fwd Diagnoses Bipolar disorder F31.9 Active/Remission status: remission status unspecified Suicidal ideation R45.851 Homeless Z59.00 Methamphetamine use disorder, moderate, dependence F15.20 Cannabis use disorder F12.90
[2025-02-12 14:00] VITALS: BP 107/70; PULSE 123; RESP 15; TEMP 36.7; O2SAT 97
[2025-02-12 21:04] VITALS: BP 109/73; PULSE 91; RESP 16; TEMP 36.5; O2SAT 98
[2025-02-13 06:00] VITALS: BP 98/61; PULSE 103; RESP 16; TEMP 36.5; O2SAT 95
--- NOTE | 2025-02-13 06:45 | PC.NURSE ---
[id number] Bree approached nsg very loud et colt complaining about not being able to get her lidocaine patches applied yet this morning. She was very combative et hateful stating that's not how I do it at home . Nsg explained that it's just that the order is to be applied in the morning et removed at night, and this was also explained to her last night when she complained. Nsg informed her that she could ask the physician this morning for a change of time, but that it would be he who could make that decision with her, to which she loudly said oh I will be asking him that et cut off further conversation et walked away. The 2 lidocaine patches et nicotine patch was obtained from her last night with some difficulty, as she did not want to remove them.
[2025-02-13] MEDS: polyethylene glycol 3350 Pkt 17 gm PO (07:45)
[2025-02-13 12:55] VITALS: BP 129/68; PULSE 99; RESP 16; TEMP 36.6; O2SAT 99
--- NOTE | 2025-02-13 17:27 | P.NPUPN_ITS ---
Subjective NPU 2 Subjective: Patient presented today reporting that things are going fine. She reports that she is doing okay with the lidocaine patches. However staff reports some irritability surrounding the administration of the patches are when they are taken versus allowing them at certain times at night. She denied any significant issues and continued to endorse being positive and looking forward to ongoing treatment outside of the hospital/rehab on Friday. She denied any side effects to the medication. Mental Status Exam 2 MSE Comments: This is a well-nourished well-developed slender white female in hospital scrubs with adequate grooming and eye contact.? No abnormal movements except for mild psychomotor retardation.? Cooperative with exam in mild distress.? Speech was more normal rate and volume.? Mood described as a little better, affect congruent and slightly less subdued.? Thought process linear.? Thought content: Patient denied suicidal or homicidal ideation, there were no delusions reported or noted, she denied auditory or visual hallucinations. No lethal aggression but patient and staff from the crisis center identify her having irritability and aggression that create challenges for her in her regular daily activities. She denies any hallucinations or paranoid thoughts. She reports no self- injurious behavior or significant compulsive behaviors. Attention and concentration were adequate and memory appeared mostly reliable but none were formally tested.? She is alert and oriented x 3.? Insight, judgment and impulse control are limited versus impaired. Vitals/I&O/Wt Last Vital Signs Temp 97.9 F 02/13/25 12:55 Pulse 99 02/13/25 12:55 Resp 16 02/13/25 12:55 BP 129/68 02/13/25 12:55 Pulse Ox 99 02/13/25 12:55 O2 Del Method Room Air 02/13/25 12:55 Weight last 48 hrs Weight 59.874 kg Data NPU 02/08/25 10:39 02/08/25 10:39 A&P Assessment and plan 1. Bipolar disorder: 2. Suicidal ideation: 3. Homeless: 4. Methamphetamine use disorder, moderate, dependence: 5. Cannabis use disorder: Plan: This is a 44-year-old white female with a history of mental health and addiction issues as well as active mental health and addiction issues who presents like she did a little over a year ago with active addiction issues on a 96-hour hold The patient is currently experiencing substantial psychosocial stressors, including joblessness, physical health issues, and housing instability, and stressors with her family especially her father which are contributing to experiencing emotional distress. 1.? Continue current medication. Will explore possible psychiatric medications for mental health issues and possible cravings. Started Neurontin 100 mg p.o. 3 times daily then titrate to effect and likely consider naltrexone, BuSpar or other medications as indicated. We discussed lidocaine patches for her pain instead of proposed pain medication. 2.? Continue every 15 minute checks for safety. 3.? Encourage individual, group and milieu therapies. 4. Encourage sober living treatment after discharge at the highest level care to which she is willing to commit. Plan for discharge to rehab on Friday evening versus Friday straight to the facility. 5. Get collateral information. 6. Observe against the backdrop of the 96-hour hold. PDMP PDMP Reviewed: Not Reviewed Involuntary Hold Information 2 Hold Status: Legal Status: 96 Hour Hold Date/Time Hold Expires: 02/14/25 @ 1030 96 Hour Hold: 96 Hour Involuntary Admission: Yes Other Hold: Hold End Date: 01/01/24 Attestations NPU 2 Medical Necessity Statement*: Inpatient hospitalization is medically necessary and the clinically appropriate intervention at this time. We will monitor medication to make changes as indicated. Likely length of stay 2 days. Coding Level of Care Code Acute Code for [facility] Fwd Diagnoses Bipolar disorder F31.9 Active/Remission status: remission status unspecified Suicidal ideation R45.851 Homeless Z59.00 Methamphetamine use disorder, moderate, dependence F15.20 Cannabis use disorder F12.90
[2025-02-13 20:18] VITALS: BP 115/65; PULSE 95; RESP 16; TEMP 36.4; O2SAT 100
[2025-02-14 06:00] VITALS: BP 100/64; PULSE 104; RESP 16; TEMP 36.5; O2SAT 98
[2025-02-14] MEDS: polyethylene glycol 3350 Pkt 17 gm PO (08:44)
--- NOTE | 2025-02-14 10:31 | PC.NURSE ---
pt lidocaine patches this nurse placed 2 lidocaine patches on her bilateral buttocks. pt was asking about suboxone, this nurse does not currently have an order for that medication.
--- NOTE | 2025-02-14 13:03 | P.NPUPN_ITS ---
Subjective NPU 2 Subjective: Patient presented today reporting that she is feeling better overall and happy she came to the unit. We discussed getting her medications ordered this evening so that there manage first thing in the morning by the outpatient pharmacy. We then discussed making sure that we know what the rehab is expecting from a standpoint of medications whether they want her to come with a 30-day supply or just the information of what she is on. She discussed the commitment to her recovery and looking forward to this opportunity. She denied any other concerns or issues and denied any side effects to her medication. Mental Status Exam 2 MSE Comments: This is a well-nourished well-developed slender white female in hospital scrubs with adequate grooming and eye contact.? No abnormal movements.? Cooperative with exam in no acute distress.? Speech was more normal rate and volume.? Mood described as I feel ready for tomorrow and I am thankful for what you guys have done, affect congruent.? Thought process linear.? Thought content: Patient denied suicidal or homicidal ideation, there were no delusions reported or noted, she denied auditory or visual hallucinations. Attention and concentration were adequate and memory appeared reliable but none were formally tested.? She is alert and oriented x 3.? Insight, judgment and impulse control are all improving. Vitals/I&O/Wt Last Vital Signs Temp 97.7 F 02/14/25 06:00 Pulse 104 H 02/14/25 06:00 Resp 16 02/14/25 06:00 BP 100/64 02/14/25 06:00 Pulse Ox 98 02/14/25 06:00 O2 Del Method Room Air 02/14/25 06:00 Weight last 48 hrs Weight 59.874 kg Data NPU 02/08/25 10:39 02/08/25 10:39 A&P Assessment and plan 1. Bipolar disorder: 2. Suicidal ideation: 3. Homeless: 4. Methamphetamine use disorder, moderate, dependence: 5. Cannabis use disorder: Plan: This is a 44-year-old white female with a history of mental health and addiction issues as well as active mental health and addiction issues who presents like she did a little over a year ago with active addiction issues on a 96-hour hold The patient is currently experiencing substantial psychosocial stressors, including joblessness, physical health issues, and housing instability, and stressors with her family especially her father which are contributing to experiencing emotional distress. 1.? Continue current medication. Will explore possible psychiatric medications for mental health issues and possible cravings. Started Neurontin 100 mg p.o. 3 times daily then titrate to effect and likely consider naltrexone, BuSpar or other medications as indicated. We discussed lidocaine patches for her pain instead of proposed pain medication. 2.? Continue every 15 minute checks for safety. 3.? Encourage individual, group and milieu therapies. 4. Encourage sober living treatment after discharge at the highest level care to which she is willing to commit. Plan for discharge to rehab on Friday evening versus Friday straight to the facility. Patient to discharge in the morning at about 8:30 AM. 5. Get collateral information. 6. Observe against the backdrop of the 96-hour hold. PDMP PDMP Reviewed: Not Reviewed Involuntary Hold Information 2 Hold Status: Legal Status: 96 Hour Hold Date/Time Hold Expires: voluntary 96 Hour Hold: 96 Hour Involuntary Admission: Yes Other Hold: Hold End Date: 01/01/24 Attestations NPU 2 Medical Necessity Statement*: Inpatient hospitalization is medically necessary and the clinically appropriate intervention at this time. We will monitor medication to make changes as indicated. Likely length of stay 1 day. Coding Level of Care Code Acute Code for [facility] Fwd Diagnoses Bipolar disorder F31.9 Active/Remission status: remission status unspecified Suicidal ideation R45.851 Homeless Z59.00 Methamphetamine use disorder, moderate, dependence F15.20 Cannabis use disorder F12.90
[2025-02-14 14:00] VITALS: BP 103/62; PULSE 93; RESP 16; TEMP 36.6; O2SAT 100
[2025-02-14 20:57] VITALS: BP 128/62; PULSE 89; RESP 16; TEMP 36.6; O2SAT 95
[2025-02-15 05:27] VITALS: BP 108/69; PULSE 82; RESP 16; TEMP 36.4; O2SAT 100
[2025-02-15 06:52] VITALS: BP 108/69; PULSE 82; RESP 16; TEMP 36.4; O2SAT 100
== END 2025-02-15 09:05 | disposition home or self-care (01) | DRG 753 ==
LOC: ER 10:21 → NP 11:46
PROVIDERS: Admitting Provider Psychiatry & Neurology Psychiatry; Emergency Provider Emergency Medicine; PCP Family Medicine; Visit Provider Psychiatry & Neurology Psychiatry
DX: F31.9 Bipolar disorder, unspecified (principal); R45.851 Suicidal ideations; Z59.00 Homelessness unspecified; F15.20 Other stimulant dependence, uncomplicated; M54.30 Sciatica, unspecified side; Z63.8 Other specified problems related to primary support group; Z56.0 Unemployment, unspecified
CPT/HCPCS: 80053; 80306; 80307; 81001; 81025; 84443; 85025; 87086; 93005; 97150; 97165; 99285; J9999

== ENCOUNTER 2025-03-04 23:36 | Emergency (ER) | payer MEDICAID, SELFPAY ==
[2025-03-04 23:40] VITALS: BP 127/44; PULSE 111; RESP 16; TEMP 36.6; O2SAT 98; BMI 23.3
--- NOTE | 2025-03-04 23:47 | ED_ITS ---
HPI - Back Pain/Injury 2 General: Chief Complaint: Back Pain/Injury Stated Complaint: Lower back pain and top of Buttocks pain Time Seen by Provider: 03/04/25 23:46 Source: patient Mode of arrival: ambulatory Limitations: no limitations History of Present Illness: Patient is a 44-year-old female presents to ED today with two separate complaints. Her main complaint is pain to her right lower back/right buttock. She states this has been an ongoing issue for several weeks/months she has been diagnosed with sciatica. She has been on medications including steroids, lidocaine patches, gabapentin, ibuprofen, muscle relaxers-some of which help/some do not. She does not feel like her pain has changed. She does feel like stretching sometimes helps. She states when she was first placed on the gabapentin she felt like it helped but now this has plateaued. She is only taking 100 mg 3 times daily. She has not followed up with primary care regarding this complaint. Her second complaint is a rash that she has noticed to the right side of her torso that she states is very painful and burning. MD elicited complaint: back pain Pertinent past history: prior back pain Onset (ago): month(s) Timing: constant Severity: moderate Location: right lower back Radiation: none Exacerbating factors: movement and walking Relieving factors: other (some medications/stretching) Associated symptoms: Reports no associated symptoms; Deny abdominal pain, chills, difficulty walking, dysuria, fatigue, fever(s) or hematuria Work related injury: No Related Data Home Medications ?Medication ?Instructions ?Recorded ?Confirmed acetaminophen 500 mg tablet 1,500 mg PO Q6H PRN Fever Or Pain 02/08/25 02/08/25 (Tylenol Extra Strength) ibuprofen 200 mg tablet (Advil) 800 mg PO Q6H PRN Feve r Or Pain 02/08/25 02/08/25 Previous Rx's ?Medication ?Instructions ?Recorded diclofenac sodium 75 mg 75 mg PO Q12H PRN pain #20 t abs 01/22/25 tablet,delayed release gabapentin 100 mg capsule 100 mg PO TID 30 days #90 ca ps 02/14/25 hydroxyzine pamoate 25 mg capsule 50 mg (2 x 25 mg) PO Q6H PRN 02/14/25 Anxiety 30 days #120 caps lidocaine 5 % topical patch 2 patch topical [id number] 15 days 02/14/25 #60 patches polyethylene glycol 3350 17 gram 17 g PO DAILY PRN con stipation 30 02/14/25 oral powder packet days #30 packets trazodone 50 mg tablet 50 mg PO BEDTIME PRN Sleep 3 0 days 02/14/25 #30 tabs ibuprofen 800 mg tablet 800 mg PO Q8H PRN pain #20 t abs 03/05/25 methocarbamol 500 mg tablet 1,000 mg (2 x 500 mg) PO Q 8H #30 03/05/25 tabs prednisone 10 mg tablet 10 mg PO DAILY 7 days #19 ta bs 03/05/25 valacyclovir 1 gram tablet 1,000 mg PO Q8H 7 days #21 tabs 03/05/25 (Valtrex) Allergies Allergy/AdvReac Type Severity Reaction Status Date / Time No Known Allergies Allergy Verified 03/04/25 23:47 Review of Systems 2 Const: Denies: fever(s), chills, body aches, fatigue or malaise Card: Denies: chest pain Resp: Denies: dyspnea GI: Denies: abdominal pain : Denies: flank pain, dysuria or hematuria Musc: Reports: back pain; Denies: neck pain, extremity pain, extremity swelling, joint pain, joint swelling or joint redness Skin/Breast: Reports: rash Neuro: Denies: headache(s), numbness in extremities, weakness in extremities, sensory changes or difficulty walking PFSH ED 2 PFSH: Medical History Psychiatric care Methamphetamine use disorder, moderate, 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 Dental abscess Physical Exam 2 Const: COMMON NORMALS: no acute distress, average body habitus, patient oriented x3, no limitations, healthy appearing, alert and well nourished G ENERAL APPEARANCE: cooperative ORIENTATION/CONSCIOUSNESS: Yes awake, Yes oriented to person, Yes oriented to place and Yes oriented to time HENMT: COMMON NORMALS: normocephalic and atraumatic HEAD & SCALP: normal to inspection, normocephalic and atraumatic Resp: COMMON NORMALS: normal respiratory effort and clear to auscultation bilaterally AUSCULTATION: clear to auscultation bilaterally Cardio: COMMON NORMALS: regular rate and regular rhythm RATE: regular rate RHYTHM: regular rhythm GI: GI image (female): 1. classic herpes zoster rash consisting of clusters of erythematous vesicles affecting R thoracic dermatomes and not crossing midline : COMMON NORMALS: Yes no CVA tenderness BLADDER/KIDNEY EXAM: Yes no CVA tenderness Back/Pelvis: COMMON NORMALS: no CVA tenderness, thoracic and lumbar spine normal to inspection and no thoracic nor lumbar tenderness BACK IMAGE (FEMALE): 1. classic herpes zoster rash consisting of clusters of erythematous vesicles affecting R thoracic dermatomes and not crossing midline 2. TTP-present for several months Extremity: COMMON NORMALS: normal to inspection GENERAL: Yes normal exam except as noted Neuro: COMMON NORMALS: patient oriented x3, moves all extremities, no focal motor deficits, no sensory deficits noted and gait normal S ENSORIUM/ORIENTATION: Yes alert, Yes oriented to person, Yes oriented to place and Yes oriented to time Skin: RASHES: rashes noted Course 2 Vital Signs: Vital signs: Vital Signs Temperature 97.9 F 03/04/25 23:40 Pulse Rate 111 H 03/04/25 23:40 Respiratory Rate 16 03/04/25 23:40 Blood Pressure 127/44 03/04/25 23:40 Pulse Oximetry 98 03/04/25 23:40 Oxygen Delivery Me thod Room Air 03/04/25 23:40 MDM - Back Pain/Injury Medical Decision Making Patient here for two separate complaints. 1) pain to her right lower back and buttock that has been present for several months-ddx piriformis syndrome, sciatica, bursitis, nerve entrapment, among others. 2) herpes zoster affecting R thoracic dermatome Treatment: Will place on antivirals for herpes zoster. Will add steroids which should help with her back. Will increase her gabapentin which should help with shingles discomfort and back pain. Will avoid opiates given history of polysubstance abuse and treatment program. She requests refills of her 800mg ibuprofen and a muscle relaxer which is reasonable. Differential Diagnosis Likely lumbar radiculopathy, sciatica, strain of lumbar region and thoracic back pain Medical Records I reviewed the patient's medical records. No radiology studies performed this visit Discharge Plan Discharge Patient Disposition: Home Clinical Impression: Herpes zoster, Sciatica of right side Condition: Stable Prescriptions: New valacyclovir [Valtrex] 1 gram tablet 1,000 mg PO Q8H 7 Days Qty: 21 0RF prednisone 10 mg tablet 10 mg PO DAILY 7 Days Qty: 19 0RF Rx Instructions: Take 4 tabs on days 1-2, 3 tabs on days 3-4, 2 tabs on day 5-6, 1 tab on day 7 ibuprofen 800 mg tablet 800 mg PO Q8H PRN (Reason: pain) Qty: 20 0RF methocarbamol 500 mg tablet 1,000 mg PO Q8H Qty: 30 0RF No Action diclofenac sodium 75 mg tablet,delayed release (DR/EC) 75 mg PO Q12H PRN (Reason: pain) Qty: 20 0RF acetaminophen [Tylenol Extra Strength] 500 mg Tablet 1,500 mg PO Q6H PRN (Reason: Fever Or Pain) ibuprofen [Advil] 200 mg Tablet 800 mg PO Q6H PRN (Reason: Fever Or Pain) trazodone 50 mg Tablet 50 mg PO BEDTIME PRN (Reason: Sleep) 30 Days Qty: 30 1RF polyethylene glycol 3350 17 gram Powder In Packet 17 g PO DAILY PRN (Reason: constipation) 30 Days Qty: 30 1RF lidocaine 5 % Adhesive Patch,Medicated 2 patch topical [id number] 15 Days Qty: 60 1RF gabapentin 100 mg Capsule 100 mg PO TID 30 Days Qty: 90 1RF hydroxyzine pamoate 25 mg Capsule 50 mg PO Q6H PRN (Reason: Anxiety) 30 Days Qty: 120 1RF Discharge Orders: Discharge ED (Routine); Ordered 03/05/25 Ordered By: Arabella Longo Referrals: Nolan Soto MD [Primary Care Provider, Family Practice] Patient Instructions: Shingles (ED), Sciatica (ED), Piriformis Syndrome (ED), Lower Back Exercises (ED), Patient Portal & Anisa Instructions Activity Restrictions/Additional Instructions: As we discussed, I am placing you on antivirals for treatment of your shingles. We will also place you on muscle relaxers, anti-inflammatory/ibuprofen, and muscle relaxers to help with your back pain. I want you to increase your gabapentin to 200mg 3x daily (you are currently prescribed 100mg 3x daily). You need to follow-up with your primary care provider this week for reevaluation of symptoms or not improving. They can speak to you about further treatment options. Print Language: Paraguayan Coding Level of Care Code ED [facility] Manager for [place]
--- OUTSIDE RECORDS SUMMARY | 2025-03-04 23:52 | XMS_ITS | Continuity of Care Document ---
Author Organization [facility] Mary, Kaleb, [facility] ([facility]) Address [address] [place] [address] Assessment No assessment recorded. Plan of Treatment Reminders Order Date Submit Date Provider Last Modified By Organization Details Last Modified Time Details Appointments None recorded. Lab None recorded. Referral None recorded. Procedures None recorded. Surgeries None recorded. Imaging None recorded. Medication Orders docusate sodium 100 mg capsule 2024 025 [facility]/Pharmacy #[id number], [address], [address], 16:57:58 magnesium citrate oral solution 2024 025 [facility]/Pharmacy #[id number], [address], [address], 16:57:58 Patient TargetsNo targets recorded. Patient InstructionsNo instructions recorded. Reason for Referral None Reported. Problems Name Problem SNOMED Code Status Onset Date Resolution Date Notes Provider Name and Address Organization Details Recorded Time Endometri al ablation Completed 201404/30/2024 Endometri al Ablation; 02/2012; 5 10:41AM by Dyana Brown RN, Office Visit; Promoted; acuity set as *; [facility] 16:37:50 Stimulant use disorder Active [address] [facility] 23:02:39 Dental caries 91882482 Active [address] [facility], [place] 5 23:03:01 History of homeless Active [address] [facility], [place] 5 23:05:27 Generaliz ed anxiety disorder 36186178 Active [address] [facility], [place] 5 23:16:26 Disturban ce in mood 85254438 Active [address] [facility], [place] 5 23:16:56 Bipolar disorder 04464341 Active [address] [facility], [place] 5 23:17:17 Problem Notes None recorded. Procedures Surgical History Date Name Laterality Status Provider Name and Address Organization Details Recorded Time 05/12/19 CT of wrist completed PHILLIPS JANIYA [facility], [facility] 09/12/2024 23:01:00 partial hysterectomy [facility]/30/2024 16:38:26 endometrial ablation completed [facility], [facility]bbie[facility] 05/20/2024 11:59:06 [facility] 11:59:31 Imaging Results None recorded. Procedure [...] Updated DateTime 5 160.02 cm 22.3 kg/m2 91247.6 4 g 98 % 86 /min 16 /min 98.2 [degF] 112/66 mm[Hg] Aleja Jaffe [facility] 5 16:53:35 Social History Question Answer Notes LastModified by Organizat ion Details LastModified Time Tobacco Smoking Status Current Every Day Smoker YENIFER xiao [facility], [facility] 04/30/2024 16:38:11 What Is Your Level Of Caffeine Consumption? Moderate [email or web address] Information not available 05/20/2024 What Was The Date Of Your Most Recent Tobacco Screening? 01/10/2025 [email or web address] Information not available 01/10/2025 What Is Your Relationship Status? Single [email or web address] Information not available 05/20/2024 Have You Used IV Drugs? No [email or web address] Information not available 05/20/2024 Sex: Unknown Functional Status Question Answer Note LastModified by Organizat ion Details LastModified Time Do you use any illicit or recreational drugs? Yes Marijuana daily [email or web address] Information not available 05/20/2024 What is your level of alcohol consumption? Moderate Information not available 05/20/2024 Are you currently employed? No [email or web address] Information not available 05/20/2024 Are you able to walk independently without assistance or assistive devices? [email or web address] Information not available 05/20/2024 Are you able to care for yourself independently? Yes [email or web address] Information not available 05/20/2024 Mental Status None recorded. Family History Relationship Description Onset Age of this Age Resolved Age Notes LastModified by Organization Details LastModified Time Father No current problems or disability Not available 05/08 11:55:32 Mother No current problems or disability [email or web address] Not available 05/08 11:55:33 Medical History No medical history recorded. Gynecological HistoryNo gynecological history recorded. Obstetrics History GPAL:G 0 P 0 0 0 0 Immunizations Vaccine Type Date Status Note Provider Nam e and Address Organization Details Recorded Time Td(adult) unspecified formulation 5 completed Not Available [facility] 10/05/2022 02:47:14 Tdap 5 completed Not Available [facility] 01/10/2025 16:43:36 Past Encounters Encounter ID Performer Location Encounter Start Date Encounter Closed Date Diagnosis/Indication Diagnosis SNOMED-CT Code Diagnosis ICD10 Code Diagnosis IMO Codes Diagnosis Note [id number] SOFY DRISCOLL [facility] ([facility]) [address] [address] 01/10/2025 16:43:10 01/10/2025 17:20:19 Acute constipation 735962341 K59.00 [id number] Patient presents with constipati on. Recommend increasing [...] Ledezma Member ID Guarantor Name 01/10/2025 1 [facility] (MEDICAID HMO) Bree Winston [id number] Bree Winston Notes Date Note Type Note Provider Name and Address Organization Details Recorded Time 5 text/html ConstipationReported by PatientROS as noted in the HPI walk in patientpatient is here today for constipation, patient said that she was in residential for 2 weeks and she can not have bowel movements when in Alf. Patient states that she has had small pellet like stools. SUDHA AGUILERA, SOFY [address] [place], [address], CEFERINO [facility] Kaleb Hernandez 01/10/2025 16:59:09 OBGyn Episode No OBEpisode recorded.
--- OUTSIDE RECORDS SUMMARY | 2025-03-04 23:52 | XMS_ITS | Continuity of Care Document ---
Author Organization [facility] Mary, Kaleb, [facility] ([facility]) Address [address] [place] [address] Assessment No assessment recorded. Plan of Treatment [...] acuity set as *; YENIFER SONYA xiao [facility] 5 16:37:50 Stimulant use disorder Active 2024 Methamphe tamine NATY xiao [facility], [facility] 5 23:02:39 Dental caries 33930939 Active 2024 NATY xiao [facility], Mariza.[facility]erna[facility] 5 23:03:01 History of homeless Active 2024 NATY xiao [facility], CesiaLMernaCMerna 5 23:05:27 Generaliz ed anxiety disorder 79313327 Active 2024 NATY xiao [facility], L.LM[facility] 5 23:16:26 Disturban ce in mood 47037115 Active 2024 NATY xiao [facility], Kaleb 5 23:16:56 Bipolar disorder 69805471 Active 2024 NATY xiao [facility], Kaleb 5 23:17:17 Problem Notes None recorded. Procedures Surgical History Date Name Laterality Status Provider Name and Address Organization Details Recorded Time 05/12/19 CT of wrist completed NATYDAX DENSON [facility], [place] 09/12/2024 23:01:00 partial hysterectomy completed YENIFER HASSAN [facility], [place] 04/30/2024 16:38:26 endometrial ablation completed NATY JANIYA [facility], [place] 05/20/2024 11:59:06 ligation of fallopian tube completed [facility] 05/20/2024 11:59:31 Imaging Results None recorded. [...] Last Updated DateTime 160.02 cm 22.5 kg/m2 46600.2 3 g 18 /min 99 % 64 /min 97.9 [degF] 118/70 mm[Hg] TYREE DAY [facility] 15:11:27 Social History Question Answer Notes LastModified by Organizat ion Details LastModified Time Tobacco Smoking Status Current Every Day Smoker YENIFER xiao [facility] 04/30/2024 16:38:11 What Is Your Level Of Caffeine Consumption? Moderate [email or web address] Information not available 05/20/2024 What Was The Date Of Your Most Recent Tobacco Screening? 01/10/2025 [email or web address] Information not available 01/10/2025 What Is Your Relationship Status? Single [email or web address] Information not available 05/20/2024 Have You Used IV Drugs? No [email or web address] Information not available 05/20/2024 Sex: Unknown Functional Status Question Answer Note LastModified by Organizat ion Details LastModified Time Do you use any illicit or recreational drugs? Yes Marijuana daily [email or web address] Information not available 05/20/2024 What is your level of alcohol consumption? Moderate Information not available 05/20/2024 Are you currently employed? No [email or web address] Information not available 05/20/2024 Are you able to walk independently without assistance or assistive devices? YESWOREST [email or web address] Information not available 05/20/2024 Are you able to care for yourself independently? Yes [email or web address] Information not available 05/20/2024 Mental Status None recorded. Family History Relationship Description Onset Age of this Age Resolved Age Notes LastModified by Organization Details LastModified Time Father No current problems or disability [email or web address] Not available 05/08 11:55:32 Mother No current problems or disability [email or web address] Not available 05/08 11:55:33 Medical History No medical history recorded. Gynecological HistoryNo gynecological history recorded. Obstetrics History GPAL:G 0 P 0 0 0 0 Immunizations Vaccine Type Date Status Note Provider Nam e and Address Organization Details Recorded Time Td(adult) unspecified formulation 5 completed Not Available [facility] 10/05/2022 02:47:14 Tdap 5 completed Not Available [facility] 01/10/2025 16:43:36 Past Encounters Encounter ID Performer Location Encounter Start Date Encounter Closed Date Diagnosis/Indication Diagnosis SNOMED-CT Code Diagnosis ICD10 Code Diagnosis IMO Codes Diagnosis Note [id number] SOFY DRISCOLL [facility] ([facility]) [address] [place] [address] 01/10/2025 16:43:10 01/10/2025 17:20:19 Acute constipation 334093207 K59.00 [id number] Patient presents with constipati on. Recommend increasing oral fluids with non-caffei nated beverages. Increase daily dietary fiber. Tylenol may be used as needed for cramping. RTC with any new or worsening symptoms. [id number] SOFY DRISCOLL [facility] ([facility]) [address] [place] [address] 01/15/2025 15:00:51 01/15/2025 15:53:55 Pain in bilateral legs [id number] M79.604 M79.605 [id number] Will apply Randy wraps for comfort. May [...] Ledezma Member ID Guarantor Name 01/15/2025 1 [facility] (MEDICAID HMO) Bree Winston [id number] Bree Winston Notes Date Note Type Note [...] rocker sole for leg toning. SUDHA AGUILERA, [employer]ER [address] [place], [address], [facility]/15/2025 15:41:18 OBGyn Episode No OBEpisode recorded.
--- OUTSIDE RECORDS SUMMARY | 2025-03-04 23:52 | XMS_ITS | Data Portability ---
Author Organization [place] - [facility] Kaleb Hernandez [facility] Address [address] [facility] [address] [place] [address] Assessment Encounter Date Assessment Date Assessment LastModified [...] docusate sodium 100 mg capsule 2024 025 [facility] #[id number], [address] [facility] [address], [address], 16:57:58 magnesium citrate oral solution 2024 025 [facility] #[id number], [address] [facility] [address], [place], [address], 16:57:58 betamethaso ne acetate and sodium phos 6 mg/mL suspension for injection 2024 025 [email or web address] Not available 11:29:30 ibuprofen 600 mg tablet 2024 025 [facility] #[id number], [address] [facility], [place], [address], 5 16:51:55 Patient TargetsNo targets recorded. Patient Instructions Encounter Date Encounter Id Patient Instructions Last Modified By Organization Details Last Modified Time 05/20/2024 [id number] Call or return for questions or concerns. Not available 05/30/2024 21:31:24 Reason for Referral None Reported. Problems Name Problem SNOMED Code Status Onset Date Resolution Date Notes Provider Name and Address Organization Details Recorded Time Endometri al ablation Completed 201404/30/2024 Endometri al Ablation; 02/2012; 5 10:41AM by Dyana Brown RN, Office Visit; Promoted; acuity set as *; YENIFER xiao [facility], [facility].L.[facility]erna 5 16:37:50 Stimulant use disorder Active 2024 Methamphe tamine NATY xiao [facility], [facility].L.[facility] 5 23:02:39 Dental caries 07986946 Active 2024 NATY xiao [facility], L.L.CMerna 5 23:03:01 History of homeless Active 2024 NATY xiao [facility], CesiaL.CMerna 5 23:05:27 Generaliz ed anxiety disorder 21132401 Active 2024 NATY xiao [facility], L.L.CMerna 5 23:16:26 Disturban ce in mood 07708438 Active 2024 NATY xiao [facility], [facility].L.[facility] 5 23:16:56 Bipolar disorder 71800127 Active 2024 NATY xiao [facility], CesiaLMernaCMerna 5 23:17:17 Problem Notes None recorded. Procedures Surgical History Date Name Laterality Status Provider Name and Address Organization Details Recorded Time 05/12/[address] [facility]20[facility] 23:01:00 partial hysterectomy completed [facility]ENIFERPATRICIA [facility] 04/30/2024 16:38:26 endometrial ablation [facility]/20[facility]2024 11:59:06 [facility] 11:59:31 Imaging Results None recorded. Procedure [...] Address Organization Details Last Updated DateTime 5 46206.0 1 g 23 kg/m2 160.02 cm 16 /min 98 % 85 /min 98.2 [degF] 136/94 mm[Hg] YENIFER HASSAN [facility] 5 16:42:15 Date Recorded Body height Body mass index (BMI) Body weight Oxygen saturation Heart rate Respiratory rate Systolic And Diastolic Provider Name and Address Organization Details Last Updated DateTime 5 160.02 cm 23 kg/m2 06902.0 1 g 96 % 90 /min 20 /min 104/62 mm[Hg] NATY DENSON [facility] 5 11:52:38 Date Recorded Body height Body mass index (BMI) Body weight Oxygen saturation Heart rate Respiratory rate Body temperature Systolic And Diastolic Provider Name and Address Organization Details Last Updated DateTime 5 160.02 cm 22.3 kg/m2 50145.6 4 g 98 % 86 /min 16 /min 98.2 [degF] 112/66 mm[Hg] Simla Rangelzoran [facility] 5 16:53:35 Date Recorded Body height Body mass index (BMI) Body weight Respiratory rate Oxygen saturation Heart rate Body temperature Systolic And Diastolic Provider Name and Address Organization Details Last Updated DateTime 5 160.02 cm 22.5 kg/m2 75120.2 3 g 18 /min 99 % 64 /min 97.9 [degF] 118/70 mm[Hg] TYREE DAY [facility] 15:11:27 Social History Question Answer Notes LastModified by Organizat ion Details LastModified Time Tobacco Smoking Status Current Every Day Smoker YENIFER SONYA dameon [facility] 04/30/2024 16:38:11 What Is Your Level Of Caffeine Consumption? Moderate [email or web address] Information not available 05/20/2024 What Was The Date Of Your Most Recent Tobacco Screening? 01/10/2025 [email or web address] Information not available 01/10/2025 What Is Your Relationship Status? Single [email or web address] Information not available 05/20/2024 Have You Used IV Drugs? No [email or web address] Information not available 05/20/2024 Sex: Unknown Functional Status Question Answer Note LastModified by Organizat ion Details LastModified Time Do you use any illicit or recreational drugs? Yes Marijuana daily [email or web address] Information not available 05/20/2024 What is your level of alcohol consumption? Moderate [email or web address] Information not available 05/20/2024 Are you currently employed? No [email or web address] Information not available 05/20/2024 Are you able to walk independently without assistance or assistive devices? YESWOREST Information not available 05/20/2024 Are you able to care for yourself independently? Yes Information not available 05/20/2024 Mental Status None recorded. Family History Relationship Description Onset Age of this Age Resolved Age Notes LastModified by Organization Details LastModified Time Father No current problems or disability [email or web address] Not available 05/08 11:55:32 Mother No current problems or disability [email or web address] Not available 05/08 11:55:33 Medical History No medical history recorded. Gynecological HistoryNo gynecological history recorded. Obstetrics History GPAL:G 0 P 0 0 0 0 Immunizations Vaccine Type Date Status Note Provider Nam e and Address Organization Details Recorded Time Td(adult) unspecified formulation 5 completed Not Available [facility] 10/05/2022 02:47:14 Tdap 5 completed Not Available [facility] 01/10/2025 16:43:36 Past Encounters Encounter ID Performer Location Encounter Start Date Encounter Closed Date Diagnosis/Indication Diagnosis SNOMED-CT Code Diagnosis ICD10 Code Diagnosis IMO Codes Diagnosis Note [id number] SUDHA AGUILERA MATERIAL ASSISTANT [facility] ([facility]) [address] [place] [address] 5 04/30/2024 16:30:06 04/30/2024 17:53:47 Low back pain 294186410 M54.50 RTC with any new or worsening symptoms. [id number] STEPHANIE GARCIA [facility] ([facility]) [address] [place] [address]876[address] 5 05/20/2024 11:32:16 05/20/2024 12:30:16 Abscess of skin of left wrist 0334673010 9372629 L02.414 Follow-up with surgeon on Friday. [id number] SUDHA AGUILERA [facility] ([facility]) [address] [place] [address] 5 01/10/2025 16:43:10 01/10/2025 17:20:19 Acute constipation 254870316 K59.00 [id number] Patient presents with constipati on. Recommend increasing oral fluids with non-caffei nated beverages. Increase daily dietary fiber. Tylenol may be used as needed for cramping. RTC with any new or worsening symptoms. [id number] SUDHA AGUILERA MATERIAL ASSISTANT [facility] ([facility]) [address] [place] [address] 5 01/15/2025 15:00:51 01/15/2025 15:53:55 Pain in bilateral legs [id number] 6020373 M79.604 M79.605 [id number] Will apply Randy wraps for comfort. May [...] ID Ledezma Member ID Guarantor Name 01/17/2025 [facility] (MEDICAID HMO) Bree Dawkins [place] [id number] Bree Dawkins [place] 01/15/2025 1 [facility] (MEDICAID HMO) Bree Dawkins [place] [id number] Bree Dawkins [place] Notes Date Note Type [...] that gave her some relief. SOFY DRISCOLL [address] [place] [address], [phone], [facility] 04/30/2024 17:50:11 05/21/19 25 text/htm l Skin LesionReported by PatientHPIFor location, patient reportswrist. For quality, patient reportstenderandsore. For severity, patient reportsmoderate. For timing, patient reportsabrupt. For context, patient reportsinfection. For associated symptoms, patient reportsno fever. For alleviating factors, (surgical drainage of abscess and iv antibiotics). STEPHANIE GARCIA [address], [address], [facility] 05/30/2024 21:32:54 01/11/20 25 text/htm l ConstipationReported by PatientROS as noted in the HPI walk in patientpatient is here today for constipation, patient said that she was in retirement for 2 weeks and she can not have bowel movements when in Senior Living. Patient states that she has had small pellet like stools. SOFY DRISCOLL [address] [place] [address], [phone], [facility] L[facility]LMernaC. 01/10/2025 16:59:09 01/16/20 25 [...] sole for leg toning. SOFY DRISCOLL [address] [place], [address], [facility], LMernaLMernaC. 01/15/2025 15:41:18 OBGyn Episode No OBEpisode recorded.
--- OUTSIDE RECORDS SUMMARY | 2025-03-04 23:52 | XMS_ITS | Clinical Summary ---
Author Organization [facility] Address [address] [place] [address] Phone Care Team Providers Care Home Health Care Worker Name Role Phone Nolan Soto MD Primary Care Provider +1- [phone] Allergies No known active allergies Medications HYDROcodone-miguel [...] CDT 5 Active naloxone (NARCAN) 4 mg/spray [place], Non-Aerosol EMERGENCY USE ONLY: Administer 1 spray (4 mg) in one nostril one time. May repeat in alternating nostrils every 2-3 min until responsive or EMS arrives. 2 Each 3 05/16/2024 12:49 PM CDT 5 Active Active Problems Problem Noted Date Diagnosed Date Homeless 05/13/2024 Abscess of left forearm 05/12/2024 Tobacco use 05/12/2024 Substance abuse 05/12/2024 Encounters Date Type Department Care Team Description 02/22/2025 External Device Data ST[facility] ABSTRACTION Provider, Abstract 02/08/2025 External Device Data [facility] ABSTRACTION Provider, Abstract 02/08/2025 External Device Data [facility] ABSTRACTION Provider, Abstract [...] on file Legal Sex Female 6:19 AM BUSINESS AGENT Gender Identity Not on file Sexual Orientation [...] cm (5' 3 ) 05/12/2024 2:36 AM BUSINESS AGENT Body Mass Index 22.85 05/12/2024 2:36 AM BUSINESS AGENT Plan of Treatment Health Maintenance Due Date Last Done Comments HEPATITIS B VACCINES (1 of 3 - 19+ 3-dose series) 09/19/1999 HPV/Cotest (21-29) 2001 CERVICAL CANCER SCREENING 2010 HPV/Cotest (30-65) 2010 PAP SMEAR 2010 BREAST CANCER SCREENING 2020 INFLUENZA VACCINE (#1) 2024 DTAP/TDAP/TD VACCINES (2 - Td or Tdap) 05/12/2034, 06/14/2014 HPV VACCINES (No Doses Required) Completed Insurance [facility] [employer] PLAN MEDICAID RX INFOCROSSING Medicaid Advance Directives For more information, please contact: [phone] * Full Code (Latest Code Status on File) Date Activated Date Inactivated Comments 05/12/2024 2:49 AM 05/16/2024 3:46 PM Care Teams Home Health Care Worker Relationship Specialty Start Date End Date Nolan Soto MD [address] [place] [address] PCP - General Family Practice 05/12/24
[2025-03-05 00:12] VITALS: BP 112/62; PULSE 98; O2SAT 97
[2025-03-05] MEDS: orphenadrine 30 mg/mL Inj 2 mL 60 MG IM (00:20)
[2025-03-05 00:37] VITALS: BP 112/73; PULSE 100; O2SAT 96
== END 2025-03-05 00:43 | disposition home or self-care (01) ==
PROVIDERS: Emergency Provider Physician Assistant; PCP Family Medicine
DX: B02.9 Zoster without complications (principal); M54.31 Sciatica, right side
CPT/HCPCS: 96372; 99284; J1100; J1885; J2360

== ENCOUNTER 2025-03-07 21:53 | Emergency (ER) | payer MEDICAID, SELFPAY ==
--- OUTSIDE RECORDS SUMMARY | 2025-03-07 21:56 | XMS_ITS | Continuity of Care Document ---
Author Organization [facility] Mary, Kaleb, [facility] ([facility]) Address [address] [place] [address] Assessment No assessment recorded. Plan of Treatment [...] acuity set as *; YENIFER SONYA xiao [facility], L.L[facility] 5 16:37:50 Stimulant use disorder Active 2024 Methamphe tamine NATY xiao [facility], L.L.[facility]erna 5 23:02:39 Dental caries 62485260 Active 2024 NATY xiao [facility], Mariza.LMernaCMerna 5 23:03:01 History of homeless Active 2024 NATY xiao [facility], CesiaLMernaCMerna 5 23:05:27 Generaliz ed anxiety disorder 21463663 Active 2024 NATY xiao [facility], L.LMernaCMerna 5 23:16:26 Disturban ce in mood 35914273 Active 2024 NATY xiao [facility], Kaleb 5 23:16:56 Bipolar disorder 41383650 Active 2024 NATY xiao [facility], Kaleb 5 23:17:17 Problem Notes None recorded. Procedures Surgical History Date Name Laterality Status Provider Name and Address Organization Details Recorded Time 05/12/19 CT of wrist completed NATYDAX DENSON [facility], Kaleb 09/12/2024 23:01:00 partial hysterectomy completed YENIFER HASSAN [facility], Kaleb 04/30/2024 16:38:26 endometrial ablation completed NATY JANIYA [facility], Kaleb 05/20/2024 11:59:06 ligation of fallopian tube completed [facility]DAX DENSON [facility] 05/20/2024 11:59:31 Imaging Results None recorded. Procedure [...] Last Updated DateTime 160.02 cm 22.5 kg/m2 79420.2 3 g 18 /min 99 % 64 /min 97.9 [degF] 118/70 mm[Hg] TYREE DAY [facility] 15:11:27 Social History Question Answer Notes LastModified by Organizat ion Details LastModified Time Tobacco Smoking Status Current Every Day Smoker YENIFER xiao [facility] 04/30/2024 16:38:11 What Is Your Level Of Caffeine Consumption? Moderate [email or web address] Information not available 05/20/2024 What Was The Date Of Your Most Recent Tobacco Screening? 01/10/2025 [email or web address] Information not available 01/10/2025 What Is Your Relationship Status? Single [email or web address] Information not available 05/20/2024 Have You Used IV Drugs? No [email or web address] Information not available 05/20/2024 Sex: Unknown Functional Status Question Answer Note LastModified by Organizat ion Details LastModified Time Do you use any illicit or recreational drugs? Yes Marijuana daily [email or web address] Information not available 05/20/2024 What is your level of alcohol consumption? Moderate [email or web address] Information not available 05/20/2024 Are you currently employed? No [email or web address] Information not available 05/20/2024 Are you able to walk independently without assistance or assistive devices? YESWOREST [email or web address] Information not available 05/20/2024 Are you able to care for yourself independently? Yes [email or web address] Information not available 05/20/2024 Mental Status None recorded. Family History Relationship Description Onset Age of this Age Resolved Age Notes LastModified by Organization Details LastModified Time Father No current problems or disability [email or web address] Not available 05/08 11:55:32 Mother No current problems or disability [email or web address] Not available 05/08 11:55:33 Medical History No medical history recorded. Gynecological HistoryNo gynecological history recorded. Obstetrics History GPAL:G 0 P 0 0 0 0 Immunizations Vaccine Type Date Status Note Provider Nam e and Address Organization Details Recorded Time Td(adult) unspecified formulation 5 completed Not Available [facility] 10/05/2022 02:47:14 Tdap 5 completed Not Available [facility] 01/10/2025 16:43:36 Past Encounters Encounter ID Performer Location Encounter Start Date Encounter Closed Date Diagnosis/Indication Diagnosis SNOMED-CT Code Diagnosis ICD10 Code Diagnosis IMO Codes Diagnosis Note [id number] SOFY DRISCOLL [facility] ([facility]) [address] [place] [address] 01/10/2025 16:43:10 01/10/2025 17:20:19 Acute constipation 009472665 K59.00 [id number] Patient presents with constipati on. Recommend increasing oral fluids with non-caffei nated beverages. Increase daily dietary fiber. Tylenol may be used as needed for cramping. RTC with any new or worsening symptoms. [id number] SOFY DRISCOLL [facility] ([facility]) [address] [place] [address] 01/15/2025 15:00:51 01/15/2025 15:53:55 Pain in bilateral legs [id number] 8589070 M79.604 M79.605 [id number] Will apply Randy wraps for comfort. May [...] Ledezma Member ID Guarantor Name 01/15/2025 1 [facility] (MEDICAID HMO) Bree Winston [id number] Bree Winston Notes Date Note Type Note [...] rocker sole for leg toning. SUDHA AGUILERA, MOLDING PRESS OPERATOR [address] [place], [address], [facility] 01/15/2025 15:41:18 OBGyn Episode No OBEpisode recorded.
--- OUTSIDE RECORDS SUMMARY | 2025-03-07 21:56 | XMS_ITS | Clinical Summary ---
Author Organization [facility] Address [address] [place] [address] Phone Care Team Providers Care Product Handler Name Role Phone Nolan Soto MD Primary Care Provider +1- [phone] Allergies No known active allergies Medications HYDROcodone-miguel [...] CDT 5 Active naloxone (NARCAN) 4 mg/spray [place], Non-Aerosol EMERGENCY USE ONLY: Administer 1 spray [...] on file Legal Sex Female 6:19 AM ADMISSION LIAISON Gender Identity Not on file Sexual Orientation [...] cm (5' 3 ) 05/12/2024 2:36 AM ADMISSION LIAISON Body Mass Index 22.85 05/12/2024 2:36 AM ADMISSION LIAISON Plan of Treatment Health Maintenance Due Date Last Done Comments HEPATITIS B VACCINES (1 of 3 - 19+ 3-dose series) 09/19/1999 HPV/Cotest (21-29) 2001 CERVICAL CANCER SCREENING 2010 HPV/Cotest (30-65) 2010 PAP SMEAR 2010 BREAST CANCER SCREENING 2020 INFLUENZA VACCINE (#1) 2024 DTAP/TDAP/TD VACCINES (2 - Td or Tdap) 05/12/2034, 06/14/2014 HPV VACCINES (No Doses Required) Completed Insurance [facility] STATE HE[employer] PLAN MEDICAID RX INFOCROSSING Medicaid Advance Directives For more information, please contact: [phone] * Full Code (Latest Code Status on File) Date Activated Date Inactivated Comments 05/12/2024 2:49 AM 05/16/2024 3:46 PM Care Teams Product Handler Relationship Specialty Start Date End Date Nolan Soto MD [address] [place] [address] PCP - General Family Practice 05/12/24
--- OUTSIDE RECORDS SUMMARY | 2025-03-07 21:56 | XMS_ITS | Data Portability ---
Author Organization [place] - Jose Angel Limon [facility] Kaleb Hernandez [facility] Address [address] [facility] [facility] [address] [place] [address] Assessment Encounter Date Assessment Date Assessment LastModified [...] docusate sodium 100 mg capsule 2024 025 [facility]/Pharmacy #[id number], [address] [facility] [address], [address], 16:57:58 magnesium citrate oral solution 2024 025 [facility]/Pharmacy #[id number], [address] [facility] [address], [place], [address], 16:57:58 betamethaso ne acetate and sodium phos 6 mg/mL suspension for injection 2024 025 [email or web address] Not available 11:29:30 ibuprofen 600 mg tablet 2024 025 [facility]/Pharmacy #[id number], [address] [facility], [place], [address], 5 16:51:55 Patient TargetsNo targets recorded. Patient Instructions Encounter Date Encounter Id Patient Instructions Last Modified By Organization Details Last Modified Time 05/20/2024 [id number] Call or return for questions or concerns. Not available 05/30/2024 21:31:24 Reason for Referral None Reported. Problems Name Problem SNOMED Code Status Onset Date Resolution Date Notes Provider Name and Address Organization Details Recorded Time Endometri al ablation Completed 201404/30/2024 Endometri al Ablation; 02/2012; 5 10:41AM by Dynaa Brown RN, Office Visit; Promoted; acuity set as *; YENIFER xiao [facility], Mariza.L.CMerna 5 16:37:50 Stimulant use disorder Active [address] [facility], Mariza.L.CMerna 5 23:02:39 Dental caries 22745564 Active [address] [facility], L.L.CMerna 5 23:03:01 History of homeless Active [address] [facility], CesiaL.CMerna 5 23:05:27 Generaliz ed anxiety disorder 96565899 Active [address] [facility], L.L.CMerna 5 23:16:26 Disturban ce in mood 60009686 Active [address] [facility], Mariza.L.CMerna 5 23:16:56 Bipolar disorder 09064688 Active [address] [facility], CesiaLMernaCMerna 5 23:17:17 Problem Notes None recorded. Procedures Surgical History Date Name Laterality Status Provider Name and Address Organization Details Recorded Time 05/12/[address] of wrist [facility] 09/12/2024 23:01:00 partial hysterectomy completed [facility]ERPATRICIA [facility]Y [facility] 04/30/2024 16:38:26 endometrial ablation [facility] 05/20/2024 11:59:06 [facility] 11:59:31 Imaging Results None recorded. Procedure [...] Address Organization Details Last Updated DateTime 5 62025.0 1 g 23 kg/m2 160.02 cm 16 /min 98 % 85 /min 98.2 [degF] 136/94 mm[Hg] YENIFER HASSAN [facility] 5 16:42:15 Date Recorded Body height Body mass index (BMI) Body weight Oxygen saturation Heart rate Respiratory rate Systolic And Diastolic Provider Name and Address Organization Details Last Updated DateTime 5 160.02 cm 23 kg/m2 17881.0 1 g 96 % 90 /min 20 /min 104/62 mm[Hg] NATY DENSON [facility] 5 11:52:38 Date Recorded Body height Body mass index (BMI) Body weight Oxygen saturation Heart rate Respiratory rate Body temperature Systolic And Diastolic Provider Name and Address Organization Details Last Updated DateTime 5 160.02 cm 22.3 kg/m2 94607.6 4 g 98 % 86 /min 16 /min 98.2 [degF] 112/66 mm[Hg] [place] Rangelzoran [facility] 5 16:53:35 Date Recorded Body height Body mass index (BMI) Body weight Respiratory rate Oxygen saturation Heart rate Body temperature Systolic And Diastolic Provider Name and Address Organization Details Last Updated DateTime 5 160.02 cm 22.5 kg/m2 32467.2 3 g 18 /min 99 % 64 /min 97.9 [degF] 118/70 mm[Hg] TYREE DAY [facility] 15:11:27 Social History Question Answer Notes LastModified by Organizat ion Details LastModified Time Tobacco Smoking Status Current Every Day Smoker YENIFER SONYA dameon [facility] 04/30/2024 16:38:11 What Is Your Level Of Caffeine Consumption? Moderate [email or web address] Information not available 05/20/2024 What Was The Date Of Your Most Recent Tobacco Screening? 01/10/2025 [email or web address] Information not available 01/10/2025 What Is Your Relationship Status? Single [email or web address] Information not available 05/20/2024 Have You Used IV Drugs? No [email or web address] Information not available 05/20/2024 Sex: Unknown Functional Status Question Answer Note LastModified by Organizat ion Details LastModified Time Do you use any illicit or recreational drugs? Yes Marijuana daily [email or web address] Information not available 05/20/2024 What is your level of alcohol consumption? Moderate [email or web address] Information not available 05/20/2024 Are you currently employed? No [email or web address] Information not available 05/20/2024 Are you able to walk independently without assistance or assistive devices? YESWOREST [email or web address] Information not available 05/20/2024 Are you able to care for yourself independently? Yes [email or web address] Information not available 05/20/2024 Mental Status None recorded. Family History Relationship Description Onset Age of this Age Resolved Age Notes LastModified by Organization Details LastModified Time Father No current problems or disability [email or web address] Not available 05/08 11:55:32 Mother No current problems or disability [email or web address] Not available 05/08 11:55:33 Medical History No medical history recorded. Gynecological HistoryNo gynecological history recorded. Obstetrics History GPAL:G 0 P 0 0 0 0 Immunizations Vaccine Type Date Status Note Provider Nam e and Address Organization Details Recorded Time Td(adult) unspecified formulation 5 completed Not Available [facility] 10/05/2022 02:47:14 Tdap 5 completed Not Available [facility] 01/10/2025 16:43:36 Past Encounters Encounter ID Performer Location Encounter Start Date Encounter Closed Date Diagnosis/Indication Diagnosis SNOMED-CT Code Diagnosis ICD10 Code Diagnosis IMO Codes Diagnosis Note [id number] SUDHA AGUILERA MANNEQUIN [employer] [facility] ([facility]) [address] [place] [phone] 04/30/2024 16:30:06 04/30/2024 17:53:47 Low back pain 011309541 M54.50 RTC with any new or worsening symptoms. [id number] STEPHANIE GARCIA [facility] ([facility]) [address] [place] [phone] 5 05/20/2024 11:32:16 05/20/2024 12:30:16 Abscess of skin of left wrist [id number] 0834596 L02.414 Follow-up with surgeon on Friday. [id number] SUDHA AGUILERA [facility] ([facility]) [address] [place] [address] 01/10/2025 16:43:10 01/10/2025 17:20:19 Acute constipation 002262637 K59.00 [id number] Patient presents with constipati on. Recommend increasing oral fluids with non-caffei nated beverages. Increase daily dietary fiber. Tylenol may be used as needed for cramping. RTC with any new or worsening symptoms. [id number] SUDHA AGUILERA MANNEQUIN [employer] [facility] ([facility]) [address] [place] [phone] 5 01/15/2025 15:00:51 01/15/2025 15:53:55 Pain in bilateral legs 2524008043 8509578 M79.604 M79.605 [id number] Will apply Randy wraps for comfort. May [...] ID Ledezma Member ID Guarantor Name 01/17/2025 [facility] (MEDICAID HMO) Bree Dawkins [place] [id number] Bree Dawkins [place] 01/15/[address] [facility] (MEDICAID HMO) Bree Dawkins [place] [id number] Bree Dawkins [place] Notes Date Note Type [...] that gave her some relief. SOFY DRISCOLL [address] [place] [address], [phone], [facility] 04/30/2024 17:50:11 05/21/19 25 text/htm l Skin LesionReported by PatientHPIFor location, patient reportswrist. For quality, patient reportstenderandsore. For severity, patient reportsmoderate. For timing, patient reportsabrupt. For context, patient reportsinfection. For associated symptoms, patient reportsno fever. For alleviating factors, (surgical drainage of abscess and iv antibiotics). STEPHANIE GARCIA [address], [phone], [facility] 05/30/2024 21:32:54 01/11/20 25 text/htm l ConstipationReported by PatientROS as noted in the HPI walk in patientpatient is here today for constipation, patient said that she was in [facility] 2 [facility] and she can not have bowel movements when in [facility]. Patient states that she has had small pellet like stools. SOFY DRISCOLL [address] [place] [address], [phone], [facility], L.LMernaC. 01/10/2025 16:59:09 01/16/20 25 [...] sole for leg toning. SOFY DRISCOLL [address] [place], [address], [facility], LMernaLMernaC. 01/15/2025 15:41:18 OBGyn Episode No OBEpisode recorded.
--- OUTSIDE RECORDS SUMMARY | 2025-03-07 21:56 | XMS_ITS | Continuity of Care Document ---
Author Organization [facility], Kaleb, [facility] ([facility]) Address [address] [place] [address] Assessment No assessment recorded. Plan of Treatment Reminders Order Date Submit Date Provider Last Modified By Organization Details Last Modified Time Details Appointments None recorded. Lab None recorded. Referral None recorded. Procedures None recorded. Surgeries None recorded. Imaging None recorded. Medication Orders docusate sodium 100 mg capsule 2024 025 [facility]/Pharmacy #[id number], [address], [address], 16:57:58 magnesium citrate oral solution 2024 025 [facility]/Pharmacy #[id number], [address], [address], 16:57:58 Patient TargetsNo targets recorded. Patient InstructionsNo instructions recorded. Reason for Referral None Reported. Problems Name Problem SNOMED Code Status Onset Date Resolution Date Notes Provider Name and Address Organization Details Recorded Time Endometri al ablation Completed 201404/30/2024 Endometri al Ablation; 02/2012; 5 10:41AM by Dyana Brown RN, Office Visit; Promoted; acuity set as *; [facility] 16:37:50 Stimulant use disorder Active 2024 Methamphe vadim [facility] 23:02:39 Dental caries 78011792 Active 2024 NATY xiao [facility], Kaleb 5 23:03:01 History of homeless Active 2024 NATY xiao [facility], Kaleb 5 23:05:27 Generaliz ed anxiety disorder 53694686 Active 2024 NATY xiao [facility], Kaleb 5 23:16:26 Disturban ce in mood 55804071 Active 2024 NATY JANIYA dameon [facility], Kaleb 5 23:16:56 Bipolar disorder 59058717 Active 2024 NATY xiao [facility], Kaleb 5 23:17:17 Problem Notes None recorded. Procedures Surgical History Date Name Laterality Status Provider Name and Address Organization Details Recorded Time 05/12/19 CT of wrist completed ALVERTON JANIYA [facility], DebbieCMerna 09/12/2024 23:01:00 partial hysterectomy completed [facility]AN [facility] 04/30/2024 16:38:26 endometrial ablation completed [facility], DebbieCMerna 05/20/2024 11:59:06 ligation of fallopian tube [facility] 05/20/2024 11:59:31 Imaging Results None [...] Updated DateTime 5 160.02 cm 22.3 kg/m2 83664.6 4 g 98 % 86 /min 16 /min 98.2 [degF] 112/66 mm[Hg] Aleja Jaffe [facility] 5 16:53:35 Social History Question Answer Notes LastModified by Organizat ion Details LastModified Time Tobacco Smoking Status Current Every Day Smoker YENIFER xiao [facility], Kaleb 04/30/2024 16:38:11 What Is Your Level Of Caffeine Consumption? Moderate [email or web address] Information not available 05/20/2024 What Was The Date Of Your Most Recent Tobacco Screening? 01/10/2025 [email or web address] Information not available 01/10/2025 What Is Your Relationship Status? Single Information not available 05/20/2024 Have You Used IV Drugs? No [email or web address] Information not available 05/20/2024 Sex: Unknown Functional Status Question Answer Note LastModified by Organizat ion Details LastModified Time Do you use any illicit or recreational drugs? Yes Marijuana daily [email or web address] Information not available 05/20/2024 What is your level of alcohol consumption? Moderate [email or web address] Information not available 05/20/2024 Are you currently employed? No [email or web address] Information not available 05/20/2024 Are you able to walk independently without assistance or assistive devices? YESWOREST [email or web address] Information not available 05/20/2024 Are you able to care for yourself independently? Yes [email or web address] Information not available 05/20/2024 Mental Status None recorded. Family History Relationship Description Onset Age of this Age Resolved Age Notes LastModified by Organization Details LastModified Time Father No current problems or disability [email or web address] Not available 05/08 11:55:32 Mother No current problems or disability [email or web address] Not available 05/08 11:55:33 Medical History No medical history recorded. Gynecological HistoryNo gynecological history recorded. Obstetrics History GPAL:G 0 P 0 0 0 0 Immunizations Vaccine Type Date Status Note Provider Nam e and Address Organization Details Recorded Time Td(adult) unspecified formulation 5 completed Not Available [facility] 10/05/2022 02:47:14 Tdap 5 completed Not Available [facility] 01/10/2025 16:43:36 Past Encounters Encounter ID Performer Location Encounter Start Date Encounter Closed Date Diagnosis/Indication Diagnosis SNOMED-CT Code Diagnosis ICD10 Code Diagnosis IMO Codes Diagnosis Note [id number] SOFY DRISCOLL [facility] ([facility]) [address] [phone] 01/10/2025 16:43:10 01/10/2025 17:20:19 Acute constipation [id number] K59.00 [id number] Patient presents with constipati on. Recommend increasing [...] [facility] Bree Winston [id number] Bree Winston Notes Date Note Type Note Provider Name and Address Organization Details Recorded Time 5 text/html ConstipationReported by PatientROS as noted in the HPI walk in patientpatient is here today for constipation, patient said that she was in [facility] and she can not have bowel movements when in [facility]. Patient states that she has had small pellet like stools. SUDHA AGUILERA, SOFY [address] [place], [address], CEFERINO Walter Merced [facility] Kaleb Hernandez 01/10/2025 16:59:09 OBGyn Episode No OBEpisode recorded.
[2025-03-07 21:59] VITALS: BP 110/70; PULSE 97; RESP 18; TEMP 36.8; O2SAT 98; BMI 23.3
--- NOTE | 2025-03-07 22:46 | ED.C_ITS ---
HPI - Psych General: Chief Complaint: Psychiatric Symptoms Stated Complaint: MHE Time Seen by Provider: 03/07/25 22:00 History of Present Illness: Patient is a 44-year-old female with a history of anxiety, depression, multisubstance abuse presents for chief complaint of feeling extra sad. Patient states that today she is not suicidal and does not have a plan to harm herself. Patient states that she does have a place to go but feels that the neuropsychiatric department would be a better environment for her. Patient has all of her medications on her person and states that she has been taking them, states that they have been helping. Patient denies homicidal ideation, visual or auditory hallucinations. Patient states she still has traci in her life including music, relationship with her mother. 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 She's unemployed at this time. She has no health complaints today, states she is here for help with her mental health. Related Data Home Medications ?Medication ?Instructions ?Recorded ?Confirmed acetaminophen 500 mg tablet 1,500 mg PO Q6H PRN Fever Or Pain 02/08/25 02/08/25 (Tylenol Extra Strength) ibuprofen 200 mg tablet (Advil) 800 mg PO Q6H PRN Feve r Or Pain 02/08/25 02/08/25 Previous Rx's ?Medication ?Instructions ?Recorded diclofenac sodium 75 mg 75 mg PO Q12H PRN pain #20 t abs 01/22/25 tablet,delayed release gabapentin 100 mg capsule 100 mg PO TID 30 days #90 ca ps 02/14/25 hydroxyzine pamoate 25 mg capsule 50 mg (2 x 25 mg) PO Q6H PRN 02/14/25 Anxiety 30 days #120 caps lidocaine 5 % topical patch 2 patch topical [id number] 15 days 02/14/25 #60 patches polyethylene glycol 3350 17 gram 17 g PO DAILY PRN con stipation 30 02/14/25 oral powder packet days #30 packets trazodone 50 mg tablet 50 mg PO BEDTIME PRN Sleep 3 0 days 02/14/25 #30 tabs ibuprofen 800 mg tablet 800 mg PO Q8H PRN pain #20 t abs 03/05/25 methocarbamol 500 mg tablet 1,000 mg (2 x 500 mg) PO Q 8H #30 03/05/25 tabs prednisone 10 mg tablet 10 mg PO DAILY 7 days #19 ta bs 03/05/25 valacyclovir 1 gram tablet 1,000 mg PO Q8H 7 days #21 tabs 03/05/25 (Valtrex) Allergies Allergy/AdvReac Type Severity Reaction Status Date / Time No Known Allergies Allergy Verified 03/04/25 23:47 [facility] ED PFSH: Medical History (Updated 03/07/25 @ 22:52 by Luisa Green MD) Psychiatric care Methamphetamine use disorder, moderate, 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 Patient is alert and oriented. Patient is breathing comfortably, no increased WOB or accessory muscle use. SpO2 is above 95% on RA. No hypotension or tachycardia. Patient is moving all extremities, no deformity or gross injury. Patient denies SI, HI. She is not psychotic. Course Vital Signs: Vital signs: Vital Signs Temperature 98.2 F 03/07/25 21:59 Pulse Rate 97 03/07/25 21:59 Respiratory Rate 18 03/07/25 21:59 Blood Pressure 110/70 03/07/25 21:59 Pulse Oximetry 98 03/07/25 21:59 Oxygen Delivery Me thod Room Air 03/07/25 21:59 MDM - Psych Medical Decision Making 44yo F w/cc of mental health evaluation/depression. Differential diagnosis includes, but is not limited to, suicidal ideation, homicidal ideation, drug- induced psychosis, anxiety, depression, other. On exam she is chemically stable. Patient is alert, oriented, denies suicidality to nurse and me. She states she is not feeling suicidal today and does not have any plans to harm herself. Patient demonstrates future-oriented thinking, is able to describe things that do still bring her traci. Patient states that she has a place to go but she would prefer to stay in the neuropsychiatric unit. Patient has medication on her person and states that she has been taking them as prescribed, she states that they have been helping. She reports occasional marijuana use. During our conversation, patient becomes upset that I continue to ask her the same questions they already asked her and refuses to further answer. When I ask for permission to examine patient, patient declines, stating that I may not examine her. She has no health complaints today. Patient is not grossly disabled. I do not feel that she presents an acute danger to self or others. She's not psychotic. I do not feel that she meets admission criteria. Patient was discharged in a stable condition. No radiology studies performed this visit Discharge Plan Discharge Patient Disposition: Home Clinical Impression: Depression Qualifiers: Depression Type: unspecified Qualified Code(s): F32.A - Depression, unspecified Condition: Stable Prescriptions: No Action diclofenac sodium 75 mg tablet,delayed release (DR/EC) 75 mg PO Q12H PRN (Reason: pain) Qty: 20 0RF acetaminophen [Tylenol Extra Strength] 500 mg Tablet 1,500 mg PO Q6H PRN (Reason: Fever Or Pain) ibuprofen [Advil] 200 mg Tablet 800 mg PO Q6H PRN (Reason: Fever Or Pain) trazodone 50 mg Tablet 50 mg PO BEDTIME PRN (Reason: Sleep) 30 Days Qty: 30 1RF polyethylene glycol 3350 17 gram Powder In Packet 17 g PO DAILY PRN (Reason: constipation) 30 Days Qty: 30 1RF lidocaine 5 % Adhesive Patch,Medicated 2 patch topical [id number] 15 Days Qty: 60 1RF gabapentin 100 mg Capsule 100 mg PO TID 30 Days Qty: 90 1RF hydroxyzine pamoate 25 mg Capsule 50 mg PO Q6H PRN (Reason: Anxiety) 30 Days Qty: 120 1RF valacyclovir [Valtrex] 1 gram tablet 1,000 mg PO Q8H 7 Days Qty: 21 0RF prednisone 10 mg tablet 10 mg PO DAILY 7 Days Qty: 19 0RF Rx Instructions: Take 4 tabs on days 1-2, 3 tabs on days 3-4, 2 tabs on day 5-6, 1 tab on day 7 ibuprofen 800 mg tablet 800 mg PO Q8H PRN (Reason: pain) Qty: 20 0RF methocarbamol 500 mg tablet 1,000 mg PO Q8H Qty: 30 0RF Discharge Orders: Discharge ED (Routine); Ordered 03/07/25 Ordered By: Luisa Green Referrals: Nolan Soto MD [Primary Care Provider, Family Practice] Patient Instructions: Opioid Safety, Pain Management, Patient Portal & Anisa Instructions, Depression (ED) Activity Restrictions/Additional Instructions: Please continue to monitor your condition closely at home. Take all of your prescribed medications. If your condition worsens or additional concerns arise, please return promptly to the emergency department for reassessment. Follow up with a mental health professional on an outpatient basis. 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
== END 2025-03-07 23:01 | disposition home or self-care (01) ==
PROVIDERS: Emergency Provider Emergency Medicine; PCP Family Medicine
DX: F32.A Depression, unspecified (principal)
CPT/HCPCS: 99285